=== PATIENT | female | born 1955 | race Hispanic/Latino ===

== ENCOUNTER 2018-08-27 10:12 | Inpatient (IN) | payer MEDICARE ==
--- NOTE | 2018-08-27 10:46 | Emergency Department Report ---
ED General Adult HPI - General Chief complaint: Weakness Stated complaint: GENERAL MALAISE Time Seen by Provider: 08/27/18 10:31 Source: patient, EMS Mode of arrival: Stretcher Limitations: No Limitations - History of Present Illness Initial comments: This 63-year-old female appears emergency room with generalized fatigue and malaise. Patient states that she went to her dialysis today and they said they would not dialyze her due to her not having dialysis for 8 days. Patient states that she has not been feeling well she's had 8 days of diarrhea. Patient denies abdominal pain. Patient denies fever chills. Patient denies chest pain and shortness of breath. Patient states her diarrhea is improving but she is in need of dialysis. -: Gradual - Related Data Home Medications Medication Instructions Recorded Confirmed Last Taken Insulin Aspart [NovoLOG Flexpen] 0 units SUB-Q DAILY 09/09/14 08/27/18 08/26/18 Insulin Detemir [Levemir Flextouch] 0 units SUB-Q HS 09/09/14 08/27/18 08/26/18 AtorvaSTATin [Lipitor] 20 mg PO QHS 08/27/18 08/27/18 08/26/18 Furosemide [Lasix TAB] 20 mg PO QDAY 08/27/18 08/27/18 08/26/18 Gabapentin [Neurontin] 1,200 mg PO TID 08/27/18 08/27/18 08/26/18 Ondansetron [Zofran Odt] 4 mg PO Q8HR 08/27/18 08/27/18 08/26/18 Pantoprazole [Protonix] 40 mg PO QDAY 08/27/18 08/27/18 08/26/18 Sertraline [Zoloft] 50 mg PO QDAY 08/27/18 08/27/18 08/26/18 Zolpidem [Ambien] 10 mg PO QHS 08/27/18 08/27/18 08/26/18 amLODIPine [Norvasc] 5 mg PO DAILY 08/27/18 08/27/18 08/26/18 Allergies Allergy/AdvReac Type Severity Reaction Status Date / Time acetaminophen Allergy Rash Verified 09/06/14 04:14 [From Lorcet (hydrocodone)] carbamazepine [From Tegretol] Allergy Rash Verified 09/06/14 04:14 cefaclor [From Ceclor] Allergy Rash Verified 09/06/14 04:14 cephalexin monohydrate Allergy Rash Verified 09/06/14 04:14 [From Keflex] chlorpheniramine maleate Allergy Rash Verified 09/06/14 04:14 [From Isoclor] codeine phosphate Allergy Rash Verified 09/06/14 04:14 [From Isoclor] guaifenesin [From Isoclor] Allergy Rash Verified 09/06/14 04:14 hydrocodone Allergy Rash Verified 09/06/14 04:14 hydrocodone bitartrate Allergy Rash Verified 09/06/14 04:14 [From Lorcet (hydrocodone)] indomethacin [From Indocin] Allergy Rash Verified 09/06/14 04:14 indomethacin sodium Allergy Rash Verified 09/06/14 04:14 [From Indocin] ofloxacin [From Floxin] Allergy Rash Verified 09/06/14 04:14 oxycodone HCl [From Percocet] Allergy Rash Verified 09/06/14 04:14 Penicillins Allergy Rash Verified 09/06/14 04:14 promethazine HCl Allergy Rash Verified 09/06/14 04:14 [From Phenergan] pseudoephedrine Allergy Rash Verified 09/06/14 04:14 pseudoephedrine HCl Allergy Rash Verified 09/06/14 04:14 [From Isoclor] Sulfa (Sulfonamide Allergy Rash Verified 09/06/14 04:14 Antibiotics) sulfamethoxazole Allergy Rash Verified 09/06/14 04:14 [From Bactrim] tetracycline Allergy Rash Verified 09/06/14 04:14 tetracycline HCl Allergy Rash Verified 09/06/14 04:14 [From Sumycin] trimethoprim [From Bactrim] Allergy Rash Verified 09/06/14 04:14 valacyclovir HCl Allergy Rash Verified 09/06/14 04:14 [From Valtrex] ED Review of Systems ROS: Stated complaint: GENERAL MALAISE Other details as noted in HPI Constitutional: malaise. denies: chills, fever Eyes: denies: eye pain, eye discharge, vision change ENT: denies: ear pain, throat pain Respiratory: denies: cough, shortness of breath, wheezing Cardiovascular: denies: chest pain, palpitations Endocrine: no symptoms reported Gastrointestinal: denies: abdominal pain, nausea, diarrhea Genitourinary: denies: urgency, dysuria, discharge Musculoskeletal: denies: back pain, joint swelling, arthralgia Skin: denies: rash, lesions Neurological: denies: headache, weakness, paresthesias Psychiatric: denies: anxiety, depression Hematological/Lymphatic: denies: easy bleeding, easy bruising ED Past Medical Hx - Past Medical History Previous Medical History?: Yes Hx Hypertension: Yes Hx Diabetes: Yes Hx Renal Disease: Yes Hx Headaches / Migraines: Yes Additional medical history: blood clots - Surgical History Past Surgical History?: Yes Additional Surgical History: fibroid removed. blood clot removed on left leg - Family History Family history: no significant - Social History Smoking Status: Never Smoker Substance Use Type: None - Medications Home Medications: Home Medications Medication Instructions Recorded Confirmed Last Taken Type Insulin Aspart [NovoLOG Flexpen] 0 units SUB-Q DAILY 09/09/14 08/27/18 08/26/18 History Insulin Detemir [Levemir Flextouch] 0 units SUB-Q HS 09/09/14 08/27/18 08/26/18 History AtorvaSTATin [Lipitor] 20 mg PO QHS 08/27/18 08/27/18 08/26/18 History Furosemide [Lasix TAB] 20 mg PO QDAY 08/27/18 08/27/18 08/26/18 History Gabapentin [Neurontin] 1,200 mg PO TID 08/27/18 08/27/18 08/26/18 History Ondansetron [Zofran Odt] 4 mg PO Q8HR 08/27/18 08/27/18 08/26/18 History Pantoprazole [Protonix] 40 mg PO QDAY 08/27/18 08/27/18 08/26/18 History Sertraline [Zoloft] 50 mg PO QDAY 08/27/18 08/27/18 08/26/18 History Zolpidem [Ambien] 10 mg PO QHS 08/27/18 08/27/18 08/26/18 History amLODIPine [Norvasc] 5 mg PO DAILY 08/27/18 08/27/18 08/26/18 History ED Physical Exam - General Limitations: No Limitations General appearance: alert, in no apparent distress - Head Head exam: Present: atraumatic, normocephalic - Eye Eye exam: Present: normal appearance - ENT ENT exam: Present: mucous membranes moist - Neck Neck exam: Present: normal inspection - Respiratory Respiratory exam: Present: normal lung sounds bilaterally. Absent: respiratory distress - Cardiovascular Cardiovascular Exam: Present: regular rate, normal rhythm. Absent: systolic murmur, diastolic murmur, rubs, gallop - GI/Abdominal GI/Abdominal exam: Present: soft, normal bowel sounds - Extremities Exam Extremities exam: Present: normal inspection - Back Exam Back exam: Present: normal inspection - Neurological Exam Neurological exam: Present: alert, oriented X3 - Psychiatric Psychiatric exam: Present: normal affect, normal mood - Skin Skin exam: Present: warm, dry, intact, normal color. Absent: rash ED Course Vital Signs 08/27/18 08/27/18 08/27/18 10:28 10:30 10:45 Temperature Pulse Rate 77 67 75 Respiratory 15 28 H Rate Blood Pressure 158/49 158/49 O2 Sat by Pulse 99 97 Oximetry 08/27/18 08/27/18 08/27/18 11:00 11:15 11:30 Temperature Pulse Rate 70 71 70 Respiratory 12 24 11 L Rate Blood Pressure 184/74 187/67 189/66 O2 Sat by Pulse 94 97 97 Oximetry 08/27/18 08/27/18 08/27/18 12:15 12:30 12:45 Temperature Pulse Rate 68 68 Respiratory 19 11 L Rate Blood Pressure 189/66 197/77 190/77 O2 Sat by Pulse 98 96 98 Oximetry 08/27/18 08/27/18 08/27/18 13:00 13:15 13:31 Temperature Pulse Rate 76 65 67 Respiratory 10 L 17 13 Rate Blood Pressure 197/79 188/70 163/60 O2 Sat by Pulse 99 99 99 Oximetry 08/27/18 08/27/18 08/27/18 13:45 14:15 14:30 Temperature 98.3 F Pulse Rate 69 70 69 Respiratory 16 16 Rate Blood Pressure 157/67 191/81 176/75 O2 Sat by Pulse 100 Oximetry 08/27/18 08/27/18 08/27/18 14:45 15:00 15:15 Temperature Pulse Rate 69 67 68 Respiratory Rate Blood Pressure 169/70 161/68 169/76 O2 Sat by Pulse Oximetry - Reevaluation(s) Reevaluation #1: Discussed all results with patient. Patient agrees to plan of care and admission. Patient was admitted to the hospitalist service for further evaluation treatment. 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 Boris villalpando. 08/27/18 12:01 Discussed case with group nurse practitioner. 08/27/18 12:37 Dr. Martinez returned call and wants patient admitted to the hospitalist service for inpatient dialysis. 08/27/18 12:43 Consultation #2: Hospitalist consult for admission. Hospitalist to admit patient and assumed care of patient. 08/27/18 12:55 ED Medical Decision Making - Lab Data Result diagrams: 08/27/18 10:53 08/27/18 10:53 - EKG Data -: EKG Interpreted by Me EKG shows normal: sinus rhythm, axis, intervals, QRS complexes, ST-T waves Rate: normal - Medical Decision Making Patient 63-year-old female that presents emergency room with complaints of malaise and needing dialysis. Patient was sent here by dialysis clinic to the infection is last 8 days of dialysis. Nephrology consult. Hospitalist consult. The patient admitted to the hospitalist service. Labs essentially unremarkable except for CK 85 and chronic anemia. EKG negative. - Differential Diagnosis weakness. Malaise. Missed dialysis. ckd. Critical care attestation.: If time is entered above; I have spent that time in minutes in the direct care of this critically ill patient, excluding procedure time. ED Disposition Clinical Impression: Missed dialysis CKD (chronic kidney disease) Qualifiers: Chronic kidney disease stage: on chronic dialysis Qualified Code(s): N18.6 - End stage renal disease Anemia Qualifiers: Anemia type: due to chronic kidney disease Chronic kidney disease stage: on chronic dialysis Qualified Code(s): N18.6 - End stage renal disease Disposition: 09 OP ADMIT IP TO THIS HOSP Is pt being admited?: Yes Does the pt Need Aspirin: No Condition: Serious Time of Disposition: 12:44
[2018-08-27 11:04] LABS: Basophils # (Auto) 0.1 K/mm3 (0.0-0.1); Basophils % (Auto) 1.2 % (0.0-1.8); Eosinophils # (Auto) 0.1 K/mm3 (0.0-0.4); Eosinophils % (Auto) 1.3 % (0.0-4.3); Hematocrit 28.9 % (30.3-42.9); Hemoglobin 9.6 gm/dl (10.1-14.3); Lymphocytes # (Auto) 0.8 K/mm3 (1.2-5.4); Lymphocytes % (Auto) 8.3 % (13.4-35.0); Mean Corpuscular HGB Conc 33 % (30-34); Mean Corpuscular Volume 91 fl (79-97); Monocytes # (Auto) 0.9 K/mm3 (0.0-0.8); Monocytes % (Auto) 9.2 % (0.0-7.3); Platelet Count 325 K/mm3 (140-440); Red Blood Count 3.16 M/mm3 (3.65-5.03); Red Cell Distribution Width 16.2 % (13.2-15.2)
[2018-08-27 11:31] LABS: Calcium 9.9 mg/dL (8.4-10.2)
[2018-08-27] MEDS ORDERED: NACL 0.9% 100 ML IV PRN (13:34)
[2018-08-27 13:58] LABS: Hepatitis B Surface Antigen Non-Reactive (Negative); Hepatitis C Virus Antibody Reactive (NonReactive)
--- NOTE | 2018-08-27 15:45 | Consultation ---
History of Present Illness - History of Present Illness Thank you for the consultation ! Patient was evaluated today My assessment and plan are as follows; End stage renal disease: Patient has not been dialyzed for last several days, missing treatment.there is no emergent indication for dialysis right It is too late to dialyze her at the dialysis facility. Patient will need to be dialyzed here at least for one treatment Ongoing issues with diarrhea off and on for last 7-8 days: Patient does need to see GI, Discussed counseled and educated Noncompliance: Discussed and addressed with patient at length, advised not to miss treatments She has been adequately counseled and educated to follow up with dialysis unit from dialysis perspective. Her hemoglobin is 9.6, sodium 134, blood sugar 240, bicarbonate 21 Patient was adequately counseled and educated regarding multiple renal related issues. overall prognosis remains guarded at this time due to dialysis status All renal related questions were answered and simple British pertinent lab studies as well as imaging results were also discussed with patient We will continue to follow and make recommendations from renal standpoint. Thank you for the consultation Author: Eze Martinez M.D. [facility], [address] [place] [address] Tel; [phone] Source of information: From patient History of present illness Patient is 63-year-old female who came into the ER with generalized malaise fatigue and weakness. He has also missed dialysis for nearly 8 days patient stated that she didn't go for dialysis as she was having diarrhea off and on. She denies having any fever or chills upon admission her BUN was 54 creatinine was 8.2 potassium was 4.9 bicarbonate was 21 hemoglobin was 9.6 Consultationc was placed for management of end-stage renal disease Current allergies: Acetaminophen and carbamazepine Cefaclor cephalexin etc. Home medication present medication: Reviewed Social history: Reviewed Family history: Reviewed Review of system: Missing dialysis for nearly 8 days due to intermittent diarrhea All other review of systems negative Physical examination Vitals: Reviewed General: No acute distress HEENT: Oral mucosa moist no pallor or icterus Neck: Supple without any JVD thyromegaly or nodular mass Chest: Clear to auscultation Heart: Regular rate and rhythm S1-S2 heard no S3-S4 Abdomen: Soft nontender, bowel sounds present no renal bruit no suprapubic masses no CVA tenderness noted Extremity: Minimal edema dry skin no peripheral cyanosis Endocrine: Thyroid not enlarged Psychiatric: No agitation and aggression noted Musculoskeletal: No joint effusion noted Labs and x-rays: Reviewed from this admission Medications and Allergies Allergies Allergy/AdvReac Type Severity Reaction Status Date / Time acetaminophen Allergy Rash Verified 09/06/14 04:14 [From Lorcet (hydrocodone)] carbamazepine [From Tegretol] Allergy Rash Verified 09/06/14 04:14 cefaclor [From Ceclor] Allergy Rash Verified 09/06/14 04:14 cephalexin monohydrate Allergy Rash Verified 09/06/14 04:14 [From Keflex] chlorpheniramine maleate Allergy Rash Verified 09/06/14 04:14 [From Isoclor] codeine phosphate Allergy Rash Verified 09/06/14 04:14 [From Isoclor] guaifenesin [From Isoclor] Allergy Rash Verified 09/06/14 04:14 hydrocodone Allergy Rash Verified 09/06/14 04:14 hydrocodone bitartrate Allergy Rash Verified 09/06/14 04:14 [From Lorcet (hydrocodone)] indomethacin [From Indocin] Allergy Rash Verified 09/06/14 04:14 indomethacin sodium Allergy Rash Verified 09/06/14 04:14 [From Indocin] ofloxacin [From Floxin] Allergy Rash Verified 09/06/14 04:14 oxycodone HCl [From Percocet] Allergy Rash Verified 09/06/14 04:14 Penicillins Allergy Rash Verified 09/06/14 04:14 promethazine HCl Allergy Rash Verified 09/06/14 04:14 [From Phenergan] pseudoephedrine Allergy Rash Verified 09/06/14 04:14 pseudoephedrine HCl Allergy Rash Verified 09/06/14 04:14 [From Isoclor] Sulfa (Sulfonamide Allergy Rash Verified 09/06/14 04:14 Antibiotics) sulfamethoxazole Allergy Rash Verified 09/06/14 04:14 [From Bactrim] tetracycline Allergy Rash Verified 09/06/14 04:14 tetracycline HCl Allergy Rash Verified 09/06/14 04:14 [From Sumycin] trimethoprim [From Bactrim] Allergy Rash Verified 09/06/14 04:14 valacyclovir HCl Allergy Rash Verified 09/06/14 04:14 [From Valtrex] Home Medications Medication Instructions Recorded Confirmed Last Taken Type Insulin Aspart [NovoLOG Flexpen] 0 units SUB-Q DAILY 09/09/14 08/27/18 08/26/18 History Insulin Detemir [Levemir Flextouch] 0 units SUB-Q HS 09/09/14 08/27/18 08/26/18 History AtorvaSTATin [Lipitor] 20 mg PO QHS 08/27/18 08/27/18 08/26/18 History Furosemide [Lasix TAB] 20 mg PO QDAY 08/27/18 08/27/18 08/26/18 History Ondansetron [Zofran ODT TAB] 4 mg PO Q8HR 08/27/18 08/27/18 08/26/18 History Pantoprazole [Protonix TAB] 40 mg PO QDAY 08/27/18 08/27/18 08/26/18 History Sertraline [Zoloft] 50 mg PO QDAY 08/27/18 08/27/18 08/26/18 History Zolpidem [Ambien] 10 mg PO QHS 08/27/18 08/27/18 08/26/18 History amLODIPine [Norvasc] 5 mg PO DAILY 08/27/18 08/27/18 08/26/18 History Gabapentin [Neurontin] 800 mg PO TID #90 capsule 09/01/18 Unknown Rx Vancomycin Po 125 mg PO Q6HR 9 Days oral.liqd 09/01/18 Unknown Rx Active Meds: Active Medications Sodium Chloride (Nacl 0.9%) 100 mls @ 999 mls/hr IV ANJELICA PRN PRN Reason: Hypotension Exam - Vital Signs Vital signs: Vital Signs Pulse 77 08/27/18 10:28 Results - Lab Results 09/01/18 05:14 09/01/18 05:14 Most recent lab results Calcium 9.9 mg/dL (8.4-10.2) 08/27/18 10:53
[2018-08-27] MEDS ORDERED: NACL 0.9 (PRIMING MACHINE ONLY DIALYSIS) MC ONE (17:47)
[2018-08-28] MEDS ORDERED: PERCOCET 5/325 PO PRN (00:31)
[2018-08-28] MEDS ORDERED: DILAUDID IV PRN (00:31)
[2018-08-28] MEDS ORDERED: ZOFRAN IV PRN (00:31)
[2018-08-28] MEDS ORDERED: SODIUM CHLORIDE FLUSH SYRINGE 10 ML IV PRN (00:31)
[2018-08-28] MEDS ORDERED: TYLENOL PO PRN (00:31)
--- NOTE | 2018-08-28 00:37 | History and Physical Report ---
History of Present Illness Date of examination: 08/27/18 Date of admission: 08/27/18 13:32 Chief complaint: Sob for 2 days. History of present illness: 63 y/o female sent from Dialysis center for missing HD for 8 days.Patient is sob.No chest painFeels weak.No fever or chills.Orthopnea present.She also had diarrhea for 8 days.No vomiting.No exacerbating or relieving factors.Patient states her diarrhea is improving. Past Medical History Previous Medical History?: Yes Hx Hypertension: Yes Hx Diabetes: Yes Hx Renal Disease: Yes Hx Headaches / Migraines: Yes Additional medical history: blood clots Surgical History Past Surgical History?: Yes Additional Surgical History: fibroid removed. blood clot removed on left leg Family History Family history: no significant Social History Smoking Status: Never Smoker Substance Use Type: None Medications Home Medications: Home Medications Medication Instructions Recorded Confirmed Last Taken Type Insulin Aspart [NovoLOG Flexpen] 0 units SUB-Q DAILY 09/09/14 08/27/18 08/26/18 History Insulin Detemir [Levemir Flextouch] 0 units SUB-Q HS 09/09/14 08/27/18 08/26/18 History AtorvaSTATin [Lipitor] 20 mg PO QHS 08/27/18 08/27/18 08/26/18 History Furosemide [Lasix TAB] 20 mg PO QDAY 08/27/18 08/27/18 08/26/18 History Gabapentin [Neurontin] 1,200 mg PO TID 08/27/18 08/27/18 08/26/18 History Ondansetron [Zofran Odt] 4 mg PO Q8HR 08/27/18 08/27/18 08/26/18 History Pantoprazole [Protonix] 40 mg PO QDAY 08/27/18 08/27/18 08/26/18 History Sertraline [Zoloft] 50 mg PO QDAY 08/27/18 08/27/18 08/26/18 History Zolpidem [Ambien] 10 mg PO QHS 08/27/18 08/27/18 08/26/18 History amLODIPine [Norvasc] 5 mg PO DAILY 08/27/18 08/27/18 08/26/18 History Review of Systems ROS: Stated complaint: GENERAL MALAISE Other details as noted in HPI Constitutional: malaise. denies: chills, fever Eyes: denies: eye pain, eye discharge, vision change ENT: denies: ear pain, throat pain Respiratory: denies: cough, shortness of breath, wheezing Cardiovascular: denies: chest pain, palpitations Endocrine: no symptoms reported Gastrointestinal: denies: abdominal pain, nausea, diarrhea Genitourinary: denies: urgency, dysuria, discharge Musculoskeletal: denies: back pain, joint swelling, arthralgia Skin: denies: rash, lesions Neurological: denies: headache, weakness, paresthesias Psychiatric: denies: anxiety, depression Hematological/Lymphatic: denies: easy bleeding, easy bruising Medications and Allergies Allergies Allergy/AdvReac Type Severity Reaction Status Date / Time acetaminophen Allergy Rash Verified 09/06/14 04:14 [From Lorcet (hydrocodone)] carbamazepine [From Tegretol] Allergy Rash Verified 09/06/14 04:14 cefaclor [From Ceclor] Allergy Rash Verified 09/06/14 04:14 cephalexin monohydrate Allergy Rash Verified 09/06/14 04:14 [From Keflex] chlorpheniramine maleate Allergy Rash Verified 09/06/14 04:14 [From Isoclor] codeine phosphate Allergy Rash Verified 09/06/14 04:14 [From Isoclor] guaifenesin [From Isoclor] Allergy Rash Verified 09/06/14 04:14 hydrocodone Allergy Rash Verified 09/06/14 04:14 hydrocodone bitartrate Allergy Rash Verified 09/06/14 04:14 [From Lorcet (hydrocodone)] indomethacin [From Indocin] Allergy Rash Verified 09/06/14 04:14 indomethacin sodium Allergy Rash Verified 09/06/14 04:14 [From Indocin] ofloxacin [From Floxin] Allergy Rash Verified 09/06/14 04:14 oxycodone HCl [From Percocet] Allergy Rash Verified 09/06/14 04:14 Penicillins Allergy Rash Verified 09/06/14 04:14 promethazine HCl Allergy Rash Verified 09/06/14 04:14 [From Phenergan] pseudoephedrine Allergy Rash Verified 09/06/14 04:14 pseudoephedrine HCl Allergy Rash Verified 09/06/14 04:14 [From Isoclor] Sulfa (Sulfonamide Allergy Rash Verified 09/06/14 04:14 Antibiotics) sulfamethoxazole Allergy Rash Verified 09/06/14 04:14 [From Bactrim] tetracycline Allergy Rash Verified 09/06/14 04:14 tetracycline HCl Allergy Rash Verified 09/06/14 04:14 [From Sumycin] trimethoprim [From Bactrim] Allergy Rash Verified 09/06/14 04:14 valacyclovir HCl Allergy Rash Verified 09/06/14 04:14 [From Valtrex] Home Medications Medication Instructions Recorded Confirmed Last Taken Type Insulin Aspart [NovoLOG Flexpen] 0 units SUB-Q DAILY 09/09/14 08/27/18 08/26/18 History Insulin Detemir [Levemir Flextouch] 0 units SUB-Q HS 09/09/14 08/27/18 08/26/18 History AtorvaSTATin [Lipitor] 20 mg PO QHS 08/27/18 08/27/18 08/26/18 History Furosemide [Lasix TAB] 20 mg PO QDAY 08/27/18 08/27/18 08/26/18 History Gabapentin [Neurontin] 1,200 mg PO TID 08/27/18 08/27/18 08/26/18 History Ondansetron [Zofran Odt] 4 mg PO Q8HR 08/27/18 08/27/18 08/26/18 History Pantoprazole [Protonix] 40 mg PO QDAY 08/27/18 08/27/18 08/26/18 History Sertraline [Zoloft] 50 mg PO QDAY 08/27/18 08/27/18 08/26/18 History Zolpidem [Ambien] 10 mg PO QHS 08/27/18 08/27/18 08/26/18 History amLODIPine [Norvasc] 5 mg PO DAILY 08/27/18 08/27/18 08/26/18 History Active Meds: Active Medications Acetaminophen (Tylenol) 650 mg PO Q4H PRN PRN Reason: Pain MILD(1-3)/Fever >100.5/TAMEZ Amlodipine Besylate (Norvasc) 5 mg PO DAILY [facility] Atorvastatin Calcium (Lipitor) 20 mg PO QHS [facility] Famotidine (Pepcid) 20 mg PO BID [facility] Furosemide (Lasix) 20 mg PO QDAY [facility] Hydromorphone HCl (Dilaudid) 0.5 mg IV Q3H PRN PRN Reason: Pain , Severe (7-10) Sodium Chloride (Nacl 0.9%) 100 mls @ 999 mls/hr IV ANJELICA PRN PRN Reason: Hypotension Miscellaneous Medication (Gabapentin [Neurontin]) 1,200 mg PO TID [facility] Miscellaneous Medication (Insulin Detemir [Levemir Flextouch]) 15 units SUB-Q HS [facility] Ondansetron HCl (Zofran) 4 mg IV Q8H PRN PRN Reason: Nausea And Vomiting Ondansetron HCl (Zofran Odt) 4 mg PO Q8HR [facility] Oxycodone/Acetaminophen (Percocet 5/325) 1 tab PO Q6H PRN PRN Reason: Pain, Moderate (4-6) Pantoprazole Sodium (Protonix) 40 mg PO QDAY [facility] Sertraline HCl (Zoloft) 50 mg PO QDAY [facility] Sodium Chloride (Sodium Chloride Flush Syringe 10 Ml) 10 ml IV BID [facility] Sodium Chloride (Sodium Chloride Flush Syringe 10 Ml) 10 ml IV PRN PRN PRN Reason: LINE FLUSH Zolpidem Tartrate (Ambien) 10 mg PO QHS [facility] Exam - Constitutional Vitals: Temp Pulse Resp BP Pulse Ox 98.2 F 75 18 136/52 92 08/27/18 23:52 08/27/18 23:52 08/27/18 23:52 08/27/18 23:52 08/27/18 23:52 General appearance: Present: mild distress, well-nourished - EENT Eyes: Present: PERRL ENT: hearing intact, clear oral mucosa - Neck Neck: Present: supple, normal ROM - Respiratory Respiratory effort: normal Respiratory: bilateral: CTA, rales - Cardiovascular Heart rate: 88 Rhythm: regular Heart Sounds: Present: S1 & S2. Absent: rub, click - Extremities Extremities: no ischemia, pulses intact, pulses symmetrical, No edema Peripheral Pulses: within normal limits - Abdominal General gastrointestinal: Present: soft, non-tender, non-distended, normal bowel sounds Female genitourinary: Present: normal - Integumentary Integumentary: Present: clear, warm, dry - Musculoskeletal Musculoskeletal: gait normal, strength equal bilaterally - Psychiatric Psychiatric: appropriate mood/affect, intact judgment & insight - Neurologic Neurologic: CNII-XII intact, moves all extremities - Allied Health Allied health notes reviewed: nursing, case management Results - Labs CBC & Chem 7: 08/27/18 10:53 08/27/18 10:53 Labs: Laboratory Last Values WBC 10.1 K/mm3 (4.5-11.0) 08/27/18 10:53 RBC 3.16 M/mm3 (3.65-5.03) L 08/27/18 10:53 Hgb 9.6 gm/dl (10.1-14.3) L 08/27/18 10:53 Hct 28.9 % (30.3-42.9) L 08/27/18 10:53 MCV 91 fl (79-97) 08/27/18 10:53 MCH 30 pg (28-32) 08/27/18 10:53 MCHC 33 % (30-34) 08/27/18 10:53 RDW 16.2 % (13.2-15.2) H 08/27/18 10:53 Plt Count 325 K/mm3 (140-440) 08/27/18 10:53 Lymph % (Auto) 8.3 % (13.4-35.0) L 08/27/18 10:53 [place] % (Auto) 9.2 % (0.0-7.3) H 08/27/18 10:53 Eos % (Auto) 1.3 % (0.0-4.3) 08/27/18 10:53 Baso % (Auto) 1.2 % (0.0-1.8) 08/27/18 10:53 Lymph # 0.8 K/mm3 (1.2-5.4) L 08/27/18 10:53 [place] # 0.9 K/mm3 (0.0-0.8) H 08/27/18 10:53 Eos # 0.1 K/mm3 (0.0-0.4) 08/27/18 10:53 Baso # 0.1 K/mm3 (0.0-0.1) 08/27/18 10:53 Seg Neutrophils % 80.0 % (40.0-70.0) H 08/27/18 10:53 Seg Neutrophils # 8.1 K/mm3 (1.8-7.7) H 08/27/18 10:53 Sodium 134 mmol/L (137-145) L 08/27/18 10:53 Potassium 4.9 mmol/L (3.6-5.0) 08/27/18 10:53 Chloride 95.6 mmol/L (98-107) L 08/27/18 10:53 Carbon Dioxide 21 mmol/L (22-30) L 08/27/18 10:53 Anion Gap 22 mmol/L 08/27/18 10:53 BUN 54 mg/dL (7-17) H 08/27/18 10:53 Creatinine 8.2 mg/dL (0.7-1.2) H 08/27/18 10:53 Estimated GFR 5 ml/min 08/27/18 10:53 BUN/Creatinine Ratio 7 % 08/27/18 10:53 Glucose 240 mg/dL (65-100) H 08/27/18 10:53 POC Glucose 240 (70-105) H 08/27/18 21:52 Calcium 9.9 mg/dL (8.4-10.2) 08/27/18 10:53 Total Bilirubin 0.30 mg/dL (0.1-1.2) 08/27/18 10:53 AST 9 units/L (5-40) 08/27/18 10:53 ALT 8 units/L (7-56) 08/27/18 10:53 Alkaline Phosphatase 77 units/L (35-129) 08/27/18 10:53 Total Protein 7.8 g/dL (6.3-8.2) 08/27/18 10:53 Albumin 4.0 g/dL (3.9-5) 08/27/18 10:53 Albumin/Globulin Ratio 1.1 % 08/27/18 10:53 Hepatitis A IgM Ab Non-reactive (NonReactive) 08/27/18 12:59 Hep Bs Antigen Non-reactive (Negative) 08/27/18 12:59 Hep B Core IgM Ab Non-reactive (NonReactive) 08/27/18 12:59 Hepatitis C Antibody Reactive (NonReactive) A 08/27/18 12:59 - Imaging and Cardiology EKG: report reviewed (NSR 68/min LAE T wave inversions n V1 V2 and AVR) Assessment and Plan Advance Directives: Yes (Fulll code) VTE prophylaxis?: Chemical Plan of care discussed with patient/family: Yes - Patient Problems (1) Volume overload Current Visit: Yes Status: Acute Qualifiers: Hypervolemia type: unspecified Qualified Code(s): E87.70 - Fluid overload, unspecified Plan to address problem: Needs HD Nephrology consult (2) Missed dialysis Current Visit: Yes Status: Acute Plan to address problem: Counselled (3) Acute exacerbation of congestive heart failure Current Visit: Yes Status: Acute Qualifiers: Heart failure type: combined systolic and diastolic Qualified Code(s): I50.43 - Acute on chronic combined systolic (congestive) and diastolic (congestive) heart failure Plan to address problem: Needs HD and increased ultrafiltration (4) HTN (hypertension) Current Visit: Yes Status: Chronic Qualifiers: Hypertension type: essential hypertension Qualified Code(s): I10 - Essential (primary) hypertension Plan to address problem: Cont antihypertensives (5) IDDM (insulin dependent diabetes mellitus) Current Visit: Yes Status: Chronic Plan to address problem: Cont Home insulin dosage and coverage Check A1c (6) HLD (hyperlipidemia) Current Visit: Yes Status: Chronic Qualifiers: Hyperlipidemia type: mixed hyperlipidemia Qualified Code(s): E78.2 - Mixed hyperlipidemia Plan to address problem: COnt statins (7) Peripheral neuropathy Current Visit: Yes Status: Chronic Qualifiers: Peripheral neuropathy type: polyneuropathy, unspecified Qualified Code(s): G62.9 - Polyneuropathy, unspecified Plan to address problem: COnt Gabapentin (8) GERD (gastroesophageal reflux disease) Current Visit: Yes Status: Chronic Qualifiers: Esophagitis presence: without esophagitis Qualified Code(s): K21.9 - Gastro-esophageal reflux disease without esophagitis Plan to address problem: Cont PPI's (9) Depression Current Visit: Yes Status: Chronic Qualifiers: Depression Type: unspecified Qualified Code(s): F32.9 - Major depressive disorder, single episode, unspecified Plan to address problem: COnt antidepressants (10) Hep C w/o coma, chronic Current Visit: Yes Status: Chronic Plan to address problem: Referral to GI as outpatient for Hep C Treatment with SOvaldi or Harvoni or EPCLUSA (11) DVT prophylaxis Current Visit: Yes Status: Acute Plan to address problem: COnt Heparin and GI prophylaxis
[2018-08-28] MEDS: ZOFRAN ODT PO SCH ×4 (02:55→23:33)
[2018-08-28 06:35] LABS: Calcium 8.8 mg/dL (8.4-10.2)
[2018-08-28] MEDS: NEURONTIN PO SCH ×3 (08:23→23:39)
--- NOTE | 2018-08-28 08:51 | Progress Note ---
Subjective Interval history: Patient was seen today for follow-up of multiple renal related issues has been complaining of abdominal pain nausea Also has had diarrhea outpatient Receive dialysis yesterday Events of 24 hours vitals labs intake output medications were reviewed Past medical history: Reviewed Family history: Reviewed Social history: Reviewed Allergies: Reviewed Physical examination: Vitals: Reviewed HEENT: No pallor or icterus oral mucosa moist Neck: Supple no JVD no thyromegaly Chest: Bilateral clear to auscultation anteriorly Heart: Regular rate and rhythm S1-S2 heard no S3-S4 Abdomen: Soft nontender no voluntary guarding rigidity rebound Extremity: Dry skin less than 1+ peripheral edema Psychiatric: No evidence of agitation and aggression noted Dermatology: No petechial rashes Labs and x-rays: Reviewed from today Assessment and plan End-stage renal disease: Patient admitted missing treatment for several days was having nausea vomiting abdominal pain? Due to uremia Will require hemodialysis treatment tomorrow morning Also has been complaining of intermittent abdominal pain with diarrhea, patient will benefit from GI evaluation Adequately counseled and educated regarding multiple renal related issues, Anemia and end-stage renal disease hemoglobin currently 9.6 Blood pressure appears to be well controlled Noncompliant patient admitted after missing several days of dialysis counseled and educated not to do so If stable will continue with hemodialysis on Friday schedule Patient was adequately counseled and educated regarding all the renal related issues Laboratory studies, pertinent for discussed with patient All questions were answered and simple Thai We'll continue to follow and make recommendation for renal standpoint Objective - Vital Signs Vital signs: Vital Signs - 12hr 08/27/18 08/28/18 08/28/18 23:52 02:54 03:54 Temperature 98.2 F Pulse Rate 75 Respiratory 18 20 20 Rate Blood Pressure 136/52 O2 Sat by Pulse 92 Oximetry 08/28/18 06:04 Temperature 98.0 F Pulse Rate 71 Respiratory 20 Rate Blood Pressure 164/62 O2 Sat by Pulse 94 Oximetry - Lab 08/27/18 10:53 08/28/18 05:02 Most recent lab results Calcium 8.8 mg/dL (8.4-10.2) 08/28/18 05:02 Medications & Allergies - Medications Allergies/Adverse Reactions: Allergies acetaminophen [From Lorcet (hydrocodone)] Allergy (Verified 09/06/14 04:14) Rash carbamazepine [From Tegretol] Allergy (Verified 09/06/14 04:14) Rash cefaclor [From Ceclor] Allergy (Verified 09/06/14 04:14) Rash cephalexin monohydrate [From Keflex] Allergy (Verified 09/06/14 04:14) Rash chlorpheniramine maleate [From Isoclor] Allergy (Verified 09/06/14 04:14) Rash codeine phosphate [From Isoclor] Allergy (Verified 09/06/14 04:14) Rash guaifenesin [From Isoclor] Allergy (Verified 09/06/14 04:14) Rash hydrocodone Allergy (Verified 09/06/14 04:14) Rash hydrocodone bitartrate [From Lorcet (hydrocodone)] Allergy (Verified 09/06/14 04:14) Rash indomethacin [From Indocin] Allergy (Verified 09/06/14 04:14) Rash indomethacin sodium [From Indocin] Allergy (Verified 09/06/14 04:14) Rash ofloxacin [From Floxin] Allergy (Verified 09/06/14 04:14) Rash oxycodone HCl [From Percocet] Allergy (Verified 09/06/14 04:14) Rash Penicillins Allergy (Verified 09/06/14 04:14) Rash promethazine HCl [From Phenergan] Allergy (Verified 09/06/14 04:14) Rash pseudoephedrine Allergy (Verified 09/06/14 04:14) Rash pseudoephedrine HCl [From Isoclor] Allergy (Verified 09/06/14 04:14) Rash Sulfa (Sulfonamide Antibiotics) Allergy (Verified 09/06/14 04:14) Rash sulfamethoxazole [From Bactrim] Allergy (Verified 09/06/14 04:14) Rash tetracycline Allergy (Verified 09/06/14 04:14) Rash tetracycline HCl [From Sumycin] Allergy (Verified 09/06/14 04:14) Rash trimethoprim [From Bactrim] Allergy (Verified 09/06/14 04:14) Rash valacyclovir HCl [From Valtrex] Allergy (Verified 09/06/14 04:14) Rash Home Medications: Home Medications Medication Instructions Recorded Confirmed Last Taken Type Insulin Aspart [NovoLOG Flexpen] 0 units SUB-Q DAILY 09/09/14 08/27/18 08/26/18 History Insulin Detemir [Levemir Flextouch] 0 units SUB-Q HS 09/09/14 08/27/18 08/26/18 History AtorvaSTATin [Lipitor] 20 mg PO QHS 08/27/18 08/27/18 08/26/18 History Furosemide [Lasix TAB] 20 mg PO QDAY 08/27/18 08/27/18 08/26/18 History Gabapentin [Neurontin] 1,200 mg PO TID 08/27/18 08/27/18 08/26/18 History Ondansetron [Zofran Odt] 4 mg PO Q8HR 08/27/18 08/27/18 08/26/18 History Pantoprazole [Protonix] 40 mg PO QDAY 08/27/18 08/27/18 08/26/18 History Sertraline [Zoloft] 50 mg PO QDAY 08/27/18 08/27/18 08/26/18 History Zolpidem [Ambien] 10 mg PO QHS 08/27/18 08/27/18 08/26/18 History amLODIPine [Norvasc] 5 mg PO DAILY 08/27/18 08/27/18 08/26/18 History Active Medications: Generic Name Dose Route Start Last Admin Trade Name Freq PRN Reason Stop Dose Admin Acetaminophen 650 mg 08/28/18 00:31 08/28/18 02:54 Tylenol PO 650 mg Q4H PRN Administration Pain MILD(1-3)/Fever >100.5/TAMEZ Amlodipine Besylate 5 mg 08/28/18 10:00 Norvasc PO DAILY [facility] Atorvastatin Calcium 20 mg 08/28/18 22:00 Lipitor PO QHS [facility] Famotidine 20 mg 08/28/18 10:00 Pepcid PO QAM [facility] Furosemide 20 mg 08/28/18 10:00 Lasix PO QDAY [facility] Gabapentin 1,200 mg 08/28/18 08:00 08/28/18 08:23 Neurontin PO 1,200 mg TID [facility] Administration Heparin Sodium (Porcine) 5,000 unit 08/28/18 10:00 Heparin SUB-Q Q12HR [facility] Hydromorphone HCl 0.5 mg 08/28/18 00:31 Dilaudid IV Q3H PRN Pain , Severe (7-10) Sodium Chloride 100 mls @ 999 mls/hr 08/27/18 13:34 Nacl 0.9% IV ANJELICA PRN Hypotension Insulin Glargine 15 units 08/28/18 22:00 Lantus SUB-Q HS [facility] Ondansetron HCl 4 mg 08/28/18 00:31 Zofran IV Q8H PRN Nausea And Vomiting Ondansetron HCl 4 mg 08/28/18 01:00 08/28/18 05:00 Zofran Odt PO Not Given Q8HR [facility] Sertraline HCl 50 mg 08/28/18 10:00 Zoloft PO QDAY [facility] Sodium Chloride 10 ml 08/28/18 10:00 Sodium Chloride Flush Syringe 10 Ml IV BID [facility] Sodium Chloride 10 ml 08/28/18 00:31 Sodium Chloride Flush Syringe 10 Ml IV PRN PRN LINE FLUSH Zolpidem Tartrate 10 mg 08/28/18 22:00 Ambien PO QHS [facility]
[2018-08-28] MEDS ORDERED: PROTONIX PO SCH (10:00)
[2018-08-28] MEDS: LASIX PO SCH (10:54)
[2018-08-28] MEDS: HEPARIN SUB-Q SCH ×2 (10:54→23:32)
[2018-08-28] MEDS: NORVASC PO SCH (11:04)
[2018-08-28] MEDS: ZOLOFT PO SCH ×2 (11:05→11:08)
[2018-08-28] MEDS: PEPCID PO SCH (11:05)
[2018-08-28] MEDS: SODIUM CHLORIDE FLUSH SYRINGE 10 ML IV SCH ×2 (11:12→23:34)
--- NOTE | 2018-08-28 14:19 | Progress Note ---
Assessment and Plan Assessment and plan: 63 y/o female sent from Dialysis center for missing HD for 8 days, she states that she missed dialysis because she was very sick and having diarrhea.Patient is c/o sob and diarrhea, Sob is improved, she is having non stop watery diarrhea, >10 episodes per day Past Medical History; htn, dm, ESRD, Migraine TAMEZ, hx of blood clots Problems Nonstop watery diarrhea Volume overload Missed dialysis HTN (hypertension) IDDM (insulin dependent diabetes mellitus), A1c 7.5 HLD (hyperlipidemia) Peripheral neuropathy GERD (gastroesophageal reflux disease) Depression Hep C w/o coma, chronic Nonadherence with dialysis Uremia Plan -Obtain stool studies, please patient on oral vancomycin empirically for treatment of C. difficile, consult ID, consult GI Nephrology consulted for dialysis, ultrafiltration to remove excess fluid Optimize medications for chronic conditions Has been hyperglycemic, optimize insulins Has been counseled on improve adherence to dialysis -Diarrhea is improving, no further workup or treatment is needed DVT prophylaxis with heparin History Interval history: Review of systems Constitutional: No fevers, c/o fatigue and malaise, no joint pains CVS: No chest pain, no orthopnea, no dyspnea on exertion, no pedal edema GI: c/o non stop watery diarrhea, >10 episodes per day Respiratory: No shortness of breath, no wheezing, no coughing Hospitalist Physical - Physical exam Narrative exam: General.: mild distress HEENT: Moist mucous membranes, extraocular muscles intact, no lymphadenopathy Neck: supple Cardiac: S1-S2 heard Lungs: clear to auscultation bilaterally Abdomen: soft , nontender, nondistended, bowel sounds positive Extremities: no edema clubbing or cyanosis Skin: no rash or lesions Neurologic: no gross focal deficits Psych: calm, and cooperative - Constitutional Vitals: Temp Pulse Resp BP Pulse Ox 98.0 F 75 20 148/62 94 08/28/18 06:04 08/28/18 11:04 08/28/18 06:04 08/28/18 11:04 08/28/18 06:04 General appearance: Present: mild distress, well-nourished Results - Labs CBC & Chem 7: 08/27/18 10:53 08/28/18 05:02 Labs: Laboratory Last Values WBC 10.1 K/mm3 (4.5-11.0) 08/27/18 10:53 RBC 3.16 M/mm3 (3.65-5.03) L 08/27/18 10:53 Hgb 9.6 gm/dl (10.1-14.3) L 08/27/18 10:53 Hct 28.9 % (30.3-42.9) L 08/27/18 10:53 MCV 91 fl (79-97) 08/27/18 10:53 MCH 30 pg (28-32) 08/27/18 10:53 MCHC 33 % (30-34) 08/27/18 10:53 RDW 16.2 % (13.2-15.2) H 08/27/18 10:53 Plt Count 325 K/mm3 (140-440) 08/27/18 10:53 Lymph % (Auto) 8.3 % (13.4-35.0) L 08/27/18 10:53 [place] % (Auto) 9.2 % (0.0-7.3) H 08/27/18 10:53 Eos % (Auto) 1.3 % (0.0-4.3) 08/27/18 10:53 Baso % (Auto) 1.2 % (0.0-1.8) 08/27/18 10:53 Lymph # 0.8 K/mm3 (1.2-5.4) L 08/27/18 10:53 [place] # 0.9 K/mm3 (0.0-0.8) H 08/27/18 10:53 Eos # 0.1 K/mm3 (0.0-0.4) 08/27/18 10:53 Baso # 0.1 K/mm3 (0.0-0.1) 08/27/18 10:53 Seg Neutrophils % 80.0 % (40.0-70.0) H 08/27/18 10:53 Seg Neutrophils # 8.1 K/mm3 (1.8-7.7) H 08/27/18 10:53 Sodium 136 mmol/L (137-145) L 08/28/18 05:02 Potassium 4.4 mmol/L (3.6-5.0) 08/28/18 05:02 Chloride 97.1 mmol/L (98-107) L 08/28/18 05:02 Carbon Dioxide 27 mmol/L (22-30) 08/28/18 05:02 Anion Gap 16 mmol/L 08/28/18 05:02 BUN 23 mg/dL (7-17) H 08/28/18 05:02 Creatinine 4.6 mg/dL (0.7-1.2) H 08/28/18 05:02 Estimated GFR 10 ml/min 08/28/18 05:02 BUN/Creatinine Ratio 5 % 08/28/18 05:02 Glucose 179 mg/dL (65-100) H 08/28/18 05:02 POC Glucose 261 (70-105) H 08/28/18 11:21 Hemoglobin A1c 7.5 % (4-6) H 08/28/18 01:04 Calcium 8.8 mg/dL (8.4-10.2) 08/28/18 05:02 Total Bilirubin 0.30 mg/dL (0.1-1.2) 08/27/18 10:53 AST 9 units/L (5-40) 08/27/18 10:53 ALT 8 units/L (7-56) 08/27/18 10:53 Alkaline Phosphatase 77 units/L (35-129) 08/27/18 10:53 Total Protein 7.8 g/dL (6.3-8.2) 08/27/18 10:53 Albumin 4.0 g/dL (3.9-5) 08/27/18 10:53 Albumin/Globulin Ratio 1.1 % 08/27/18 10:53 Hepatitis A IgM Ab Non-reactive (NonReactive) 08/27/18 12:59 Hep Bs Antigen Non-reactive (Negative) 08/27/18 12:59 Hep B Core IgM Ab Non-reactive (NonReactive) 08/27/18 12:59 Hepatitis C Antibody Reactive (NonReactive) A 08/27/18 12:59 Nutrition/Malnutrition Assess - Dietary Evaluation Nutrition/Malnutrition Findings: Nutrition Notes Start: 08/28/18 10:25 Freq: Status: Active Protocol: Document 08/28/18 10:26 LM (Rec: 08/28/18 11:33 LM [id number]) Co-Sign 08/28/18 10:26 LP Nutrition Notes Need for Assessment generated from: bill recapitulation clerk Initial or Follow up Assessment Current Diagnosis CKD (stage V CKD) Diabetes Hypertension Other Pertinent Diagnosis Hep C, on HD Current Diet Renal Labs/Tests Na 136 BUN 23 Creat 4.6 BG 179 Pertinent Medications Lyric [place] Height 5 ft 6 in Weight 87.2 kg [place] Body Weight (lbs) 130.0 BMI 31.0 Subjective/Other Information Consult for MST. Pt stated she has not been eating well due to having N/V/D for 3 weeks. Pt stated her N/V/D was due to previouslt having pnemonia and the flu. Pt siad she has noticed that she has been gradully losing weight since N /V/D started. Pt unaware of her UBW. Food preferences taken. Discussed nutrition for N/V. Burn Absent Trauma Absent GI Symptoms Nausea Vomiting Diarrhea #1 Nutrition Diagnosis Inadequate oral intake Etiology Nausea, vomitng, diarrhea As Evidenced by Signs and Symptoms Intakes less than 75% Is patient on ventilator? No Is Patient Ambulatory and/or Out of Bed Yes REE-([facility]-ambulatory/OOB) [ 1870.375 [id number]] Calculation Used for Recommendations [facility] Additional Notes Protein: 104-113 g (1.2-1.3 g/ kg) Fluids: 1-1.5 L/day Nutrition Intervention Change Diet Order: Continue Renal Goal #1 Meet at least 75% of energy and protein needs Goal #2 Diet toleance Anticipated Discharge Needs: Renal diet Follow-Up By: 08/31/18 Additional Comments F/U for intakes/ONS needs
[2018-08-28] MEDS ORDERED: D50W (25GM) Syringe IV PRN (14:24)
[2018-08-28] MEDS ORDERED: APRESOLINE IV PRN (14:25)
[2018-08-28] MEDS: HumaLOG SUB-Q SCH (18:41)
[2018-08-28] MEDS: VANCOMYCIN PO PO SCH (19:15)
[2018-08-28] MEDS: AMBIEN PO SCH (23:33)
[2018-08-28] MEDS: LANTUS SUB-Q SCH (23:39)
[2018-08-29] MEDS: VANCOMYCIN PO PO SCH ×4 (00:56→17:24)
[2018-08-29] MEDS: HumaLOG SUB-Q SCH ×5 (01:36→21:46)
[2018-08-29] MEDS: ZOFRAN ODT PO SCH ×3 (05:48→22:11)
[2018-08-29] MEDS: NEURONTIN PO SCH ×3 (08:00→20:19)
[2018-08-29 08:45] LABS: Basophils # (Auto) 0.1 K/mm3 (0.0-0.1); Basophils % (Auto) 1.3 % (0.0-1.8); Eosinophils # (Auto) 0.3 K/mm3 (0.0-0.4); Eosinophils % (Auto) 2.3 % (0.0-4.3); Hematocrit 26.4 % (30.3-42.9); Hemoglobin 8.9 gm/dl (10.1-14.3); Lymphocytes % (Auto) 9.1 % (13.4-35.0); Mean Corpuscular HGB Conc 34 % (30-34); Mean Corpuscular Volume 90 fl (79-97); Monocytes % (Auto) 8.9 % (0.0-7.3); Platelet Count 235 K/mm3 (140-440); Red Blood Count 2.94 M/mm3 (3.65-5.03); Red Cell Distribution Width 15.9 % (13.2-15.2)
[2018-08-29 09:01] LABS: Albumin 3.3 g/dL (3.9-5); Calcium 8.9 mg/dL (8.4-10.2)
[2018-08-29] MEDS: HEPARIN SUB-Q SCH ×2 (09:57→22:10)
[2018-08-29] MEDS: LASIX PO SCH (09:59)
[2018-08-29] MEDS: NORVASC PO SCH (09:59)
[2018-08-29] MEDS: PEPCID PO SCH (09:59)
[2018-08-29] MEDS: ZOLOFT PO SCH (09:59)
[2018-08-29] MEDS: SODIUM CHLORIDE FLUSH SYRINGE 10 ML IV SCH ×2 (09:59→22:12)
[2018-08-29] MEDS ORDERED: NACL 0.9% 100 ML IV PRN (10:34)
[2018-08-29] MEDS ORDERED: NACL 0.9 (PRIMING MACHINE ONLY DIALYSIS) MC ONE (14:47)
--- NOTE | 2018-08-29 14:48 | Progress Note ---
Assessment and Plan Impression: * End stage renal disease * Diarrhea * Hep C virus * Hypertension * Type II DM * Anemia secondary to ESRD * Secondary hyperPTH * Medical noncompliance Plan: * Hemodialysis today; continue TTS schedule * UF as tolerated * Dose medications for renal function * Epogen TIW prn * Renal diet Subjective Date of service: 08/29/18 Interval history: Patient seen on dialysis; no episodes of diarrhea today Objective - Vital Signs Vital signs: Vital Signs - 12hr 08/29/18 08/29/18 08/29/18 05:16 11:45 13:02 Temperature 98.1 F 99.4 F 99 F Pulse Rate 85 82 80 Respiratory 18 16 18 Rate Blood Pressure 144/64 131/53 O2 Sat by Pulse 95 78 L 96 Oximetry 08/29/18 08/29/18 08/29/18 14:00 14:15 14:30 Temperature 98.5 F Pulse Rate 77 74 75 Respiratory 16 Rate Blood Pressure 131/74 125/56 120/50 O2 Sat by Pulse Oximetry - General Appearance General appearance: well-developed, well-nourished EENT: ATNC Respiratory: Present: Clear to Ascultation Cardiology: regular, S1S2 Gastrointestinal: normal Integumentary: warm and dry Musculoskeletal: other (no edema) Psychiatric: cooperative - Lab 08/29/18 08:13 08/29/18 08:13 Most recent lab results Calcium 8.9 mg/dL (8.4-10.2) 08/29/18 08:13 Medications & Allergies - Medications Allergies/Adverse Reactions: Allergies acetaminophen [From Lorcet (hydrocodone)] Allergy (Verified 09/06/14 04:14) Rash carbamazepine [From Tegretol] Allergy (Verified 09/06/14 04:14) Rash cefaclor [From Ceclor] Allergy (Verified 09/06/14 04:14) Rash cephalexin monohydrate [From Keflex] Allergy (Verified 09/06/14 04:14) Rash chlorpheniramine maleate [From Isoclor] Allergy (Verified 09/06/14 04:14) Rash codeine phosphate [From Isoclor] Allergy (Verified 09/06/14 04:14) Rash guaifenesin [From Isoclor] Allergy (Verified 09/06/14 04:14) Rash hydrocodone Allergy (Verified 09/06/14 04:14) Rash hydrocodone bitartrate [From Lorcet (hydrocodone)] Allergy (Verified 09/06/14 04:14) Rash indomethacin [From Indocin] Allergy (Verified 09/06/14 04:14) Rash indomethacin sodium [From Indocin] Allergy (Verified 09/06/14 04:14) Rash ofloxacin [From Floxin] Allergy (Verified 09/06/14 04:14) Rash oxycodone HCl [From Percocet] Allergy (Verified 09/06/14 04:14) Rash Penicillins Allergy (Verified 09/06/14 04:14) Rash promethazine HCl [From Phenergan] Allergy (Verified 09/06/14 04:14) Rash pseudoephedrine Allergy (Verified 09/06/14 04:14) Rash pseudoephedrine HCl [From Isoclor] Allergy (Verified 09/06/14 04:14) Rash Sulfa (Sulfonamide Antibiotics) Allergy (Verified 09/06/14 04:14) Rash sulfamethoxazole [From Bactrim] Allergy (Verified 09/06/14 04:14) Rash tetracycline Allergy (Verified 09/06/14 04:14) Rash tetracycline HCl [From Sumycin] Allergy (Verified 09/06/14 04:14) Rash trimethoprim [From Bactrim] Allergy (Verified 09/06/14 04:14) Rash valacyclovir HCl [From Valtrex] Allergy (Verified 09/06/14 04:14) Rash Home Medications: Home Medications Medication Instructions Recorded Confirmed Last Taken Type Insulin Aspart [NovoLOG Flexpen] 0 units SUB-Q DAILY 09/09/14 08/27/18 08/26/18 History Insulin Detemir [Levemir Flextouch] 0 units SUB-Q HS 09/09/14 08/27/18 08/26/18 History AtorvaSTATin [Lipitor] 20 mg PO QHS 08/27/18 08/27/18 08/26/18 History Furosemide [Lasix TAB] 20 mg PO QDAY 08/27/18 08/27/18 08/26/18 History Gabapentin [Neurontin] 1,200 mg PO TID 08/27/18 08/27/18 08/26/18 History Ondansetron [Zofran Odt] 4 mg PO Q8HR 08/27/18 08/27/18 08/26/18 History Pantoprazole [Protonix] 40 mg PO QDAY 08/27/18 08/27/18 08/26/18 History Sertraline [Zoloft] 50 mg PO QDAY 08/27/18 08/27/18 08/26/18 History Zolpidem [Ambien] 10 mg PO QHS 08/27/18 08/27/18 08/26/18 History amLODIPine [Norvasc] 5 mg PO DAILY 08/27/18 08/27/18 08/26/18 History Active Medications: Generic Name Dose Route Start Last Admin Trade Name Freq PRN Reason Stop Dose Admin Acetaminophen 650 mg 08/28/18 00:31 08/28/18 02:54 Tylenol PO 650 mg Q4H PRN Administration Pain MILD(1-3)/Fever >100.5/TAMEZ Amlodipine Besylate 5 mg 08/28/18 10:00 08/29/18 09:59 Norvasc PO Not Given DAILY [facility] Atorvastatin Calcium 20 mg 08/28/18 22:00 08/28/18 23:33 Lipitor PO 20 mg QHS [facility] Administration Dextrose 50 ml 08/28/18 14:24 D50w (25gm) Syringe IV PRN PRN Hypoglycemia Famotidine 20 mg 08/28/18 10:00 08/29/18 09:59 Pepcid PO Not Given QAM [facility] Furosemide 20 mg 08/28/18 10:00 08/29/18 09:59 Lasix PO Not Given QDAY [facility] Gabapentin 1,200 mg 08/28/18 08:00 08/29/18 08:00 Neurontin PO Not Given TID [facility] Heparin Sodium (Porcine) 5,000 unit 08/28/18 10:00 08/29/18 09:57 Heparin SUB-Q Not Given Q12HR [facility] Hydralazine HCl 10 mg 08/28/18 14:25 Apresoline IV Q4HR PRN BP >160/100 Hydromorphone HCl 0.5 mg 08/28/18 00:31 Dilaudid IV Q3H PRN Pain , Severe (7-10) Sodium Chloride 100 mls @ 999 mls/hr 08/27/18 13:34 Nacl 0.9% IV ANJELICA PRN Hypotension Sodium Chloride 100 mls @ 999 mls/hr 08/29/18 10:34 Nacl 0.9% IV ANJELICA PRN Hypotension Insulin Glargine 15 units 08/28/18 22:00 08/28/18 23:39 Lantus SUB-Q 15 units HS [facility] Administration Insulin Human Lispro 0 unit 08/28/18 16:30 08/29/18 11:30 Humalog SUB-Q 2 unit ACHS [facility] Administration Protocol Ondansetron HCl 4 mg 08/28/18 00:31 Zofran IV Q8H PRN Nausea And Vomiting Ondansetron HCl 4 mg 08/28/18 01:00 08/29/18 05:48 Zofran Odt PO 4 mg Q8HR [facility] Administration Sertraline HCl 50 mg 08/28/18 10:00 08/29/18 09:59 Zoloft PO Not Given QDAY [facility] Sodium Chloride 10 ml 08/28/18 10:00 08/29/18 09:59 Sodium Chloride Flush Syringe 10 Ml IV Not Given BID [facility] Sodium Chloride 10 ml 08/28/18 00:31 Sodium Chloride Flush Syringe 10 Ml IV PRN PRN LINE FLUSH Vancomycin HCl 125 mg 08/28/18 18:00 08/29/18 12:15 Vancomycin Po PO Not Given Q6HR [facility] Zolpidem Tartrate 10 mg 08/28/18 22:00 08/28/18 23:33 Ambien PO 10 mg QHS [facility] Administration
--- NOTE | 2018-08-29 16:46 | Progress Note ---
Assessment and Plan - Patient Problems (1) Diarrhea Current Visit: Yes Status: Acute Plan to address problem: Diarrhea patient still has 3-4 watery stools throughout the day. At this time diarrhea unspecified. Await stool studies. GI consult. Consider Lomotil. (2) CKD (chronic kidney disease) Current Visit: Yes Status: Acute Qualifiers: Chronic kidney disease stage: on chronic dialysis Qualified Code(s): N18.6 - End stage renal disease; Z99.2 - Dependence on renal dialysis Plan to address problem: Chronic kidney disease hemodialysis as per nephrology. (3) Hep C w/o coma, chronic Current Visit: Yes Status: Chronic (4) IDDM (insulin dependent diabetes mellitus) Current Visit: Yes Status: Chronic Plan to address problem: Patient insulin-dependent diabetes mellitus several episodes of hypoglycemia will not be too aggressive with insulin continue the 15 units of Lantus. (5) Peripheral neuropathy Current Visit: Yes Status: Chronic Qualifiers: Peripheral neuropathy type: polyneuropathy, unspecified Qualified Code(s): G62.9 - Polyneuropathy, unspecified Plan to address problem: Peripheral neuropathy stable.. I evaluated patient's medications to see what may be causing the dizziness throughout the day. Most likely etiology now would be Neurontin. We'll decrease slightly to 900 mg 3 times a day. See how she responds to this. History Interval history: Patient's main complaint today is 1 of the pills makes me dizzy. Patient also she states she would like some lidocaine cream for irritated area on her shoulder. She does not sure what appear lid is if it is the morning of the day. She still continues to have increased stools 3-4 times per day. Patient states that it is not her stools for dehydration or anything or electrolyte abnormalities. She thinks for the pills. Hospitalist Physical - Constitutional Vitals: Temp Pulse Resp BP Pulse Ox 98.5 F 70 16 126/49 96 08/29/18 14:00 08/29/18 16:30 08/29/18 14:00 08/29/18 16:30 08/29/18 13:02 General appearance: Present: no acute distress, well-nourished - EENT Eyes: Present: PERRL, EOM intact ENT: hearing intact, clear oral mucosa, dentition normal, oropharyngeal erythema - Neck Neck: Present: supple, normal ROM - Respiratory Respiratory: bilateral: CTA - Cardiovascular Rhythm: regular Heart Sounds: Present: S1 & S2 - Extremities Extremities: no ischemia, pulses intact, pulses symmetrical Peripheral Pulses: within normal limits - Abdominal General gastrointestinal: soft, non-tender, non-distended, normal bowel sounds, no absent bowel sounds, no hepatomegaly, no splenomegaly - Integumentary Integumentary: Present: clear, warm, dry - Psychiatric Psychiatric: appropriate mood/affect, intact judgment & insight, cooperative - Neurologic Neurologic: CNII-XII intact Results - Labs CBC & Chem 7: 08/29/18 08:13 08/29/18 08:13 Labs: Laboratory Last Values WBC 11.6 K/mm3 (4.5-11.0) H 08/29/18 08:13 RBC 2.94 M/mm3 (3.65-5.03) L 08/29/18 08:13 Hgb 8.9 gm/dl (10.1-14.3) L 08/29/18 08:13 Hct 26.4 % (30.3-42.9) L 08/29/18 08:13 MCV 90 fl (79-97) 08/29/18 08:13 MCH 30 pg (28-32) 08/29/18 08:13 MCHC 34 % (30-34) 08/29/18 08:13 RDW 15.9 % (13.2-15.2) H 08/29/18 08:13 Plt Count 235 K/mm3 (140-440) 08/29/18 08:13 Lymph % (Auto) 9.1 % (13.4-35.0) L 08/29/18 08:13 [place] % (Auto) 8.9 % (0.0-7.3) H 08/29/18 08:13 Eos % (Auto) 2.3 % (0.0-4.3) 08/29/18 08:13 Baso % (Auto) 1.3 % (0.0-1.8) 08/29/18 08:13 Lymph # 1.0 K/mm3 (1.2-5.4) L 08/29/18 08:13 [place] # 1.0 K/mm3 (0.0-0.8) H 08/29/18 08:13 Eos # 0.3 K/mm3 (0.0-0.4) 08/29/18 08:13 Baso # 0.1 K/mm3 (0.0-0.1) 08/29/18 08:13 Seg Neutrophils % 78.4 % (40.0-70.0) H 08/29/18 08:13 Seg Neutrophils # 9.1 K/mm3 (1.8-7.7) H 08/29/18 08:13 Sodium 135 mmol/L (137-145) L 08/29/18 08:13 Potassium 4.1 mmol/L (3.6-5.0) 08/29/18 08:13 Chloride 95.6 mmol/L (98-107) L 08/29/18 08:13 Carbon Dioxide 23 mmol/L (22-30) 08/29/18 08:13 Anion Gap 21 mmol/L 08/29/18 08:13 BUN 26 mg/dL (7-17) H 08/29/18 08:13 Creatinine 6.5 mg/dL (0.7-1.2) H 08/29/18 08:13 Estimated GFR 6 ml/min 08/29/18 08:13 BUN/Creatinine Ratio 4 % 08/29/18 08:13 Glucose 191 mg/dL (65-100) H 08/29/18 08:13 POC Glucose 234 (70-105) H 08/29/18 11:06 Hemoglobin A1c 7.5 % (4-6) H 08/28/18 01:04 Calcium 8.9 mg/dL (8.4-10.2) 08/29/18 08:13 Total Bilirubin 0.30 mg/dL (0.1-1.2) 08/29/18 08:13 AST 6 units/L (5-40) 08/29/18 08:13 ALT 6 units/L (7-56) L 08/29/18 08:13 Alkaline Phosphatase 74 units/L (35-129) 08/29/18 08:13 Total Protein 6.8 g/dL (6.3-8.2) 08/29/18 08:13 Albumin 3.3 g/dL (3.9-5) L 08/29/18 08:13 Albumin/Globulin Ratio 0.9 % 08/29/18 08:13 Hepatitis A IgM Ab Non-reactive (NonReactive) 08/27/18 12:59 Hep Bs Antigen Non-reactive (Negative) 08/27/18 12:59 Hep B Core IgM Ab Non-reactive (NonReactive) 08/27/18 12:59 Hepatitis C Antibody Reactive (NonReactive) A 08/27/18 12:59 Nutrition/Malnutrition Assess - Dietary Evaluation Nutrition/Malnutrition Findings: Nutrition Notes Start: 08/28/18 10:25 Freq: Status: Active Protocol: Document 08/28/18 10:26 LM (Rec: 08/28/18 11:33 LM [id number]) Co-Sign 08/28/18 10:26 LP Nutrition Notes Need for 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 Pt stated she has not been eating well due to having N/V/D for 3 weeks. Pt stated her N/V/D was due to previouslt having pnemonia and the flu. Pt siad she has noticed that she has been gradully losing weight since N /V/D started. Pt unaware of her UBW. Food preferences taken. Discussed nutrition for N/V. Burn Absent Trauma Absent GI Symptoms Nausea Vomiting Diarrhea #1 Nutrition Diagnosis Inadequate oral intake Etiology Nausea, vomitng, diarrhea As Evidenced by Signs and Symptoms Intakes less than 75% Is patient on ventilator? No Is Patient Ambulatory and/or Out of Bed Yes REE-(Madison-St. Jeor-ambulatory/OOB) [ 1870.375 [id number]] Calculation Used for Recommendations [place]-St Jeor Additional Notes Protein: 104-113 g (1.2-1.3 g/ kg) Fluids: 1-1.5 L/day Nutrition Intervention Change Diet Order: Continue Renal Goal #1 Meet at least 75% of energy and protein needs Goal #2 Diet toleance Anticipated Discharge Needs: Renal diet Follow-Up By: 08/31/18 Additional Comments F/U for intakes/ONS needs
--- NOTE | 2018-08-29 17:14 | Gastroenterology Consultation ---
History of Present Illness - Reason for Consult Consult date: 08/29/18 diarrhea Requesting physician: PEPITO HEARD - History of Present Illness Ms Harper is a 63 yo wf who h/o ESRD who was admitted with volume depletion, diarrhea, n/v. She was sent to hospital from dialysis per pt. She had several days of diarrhea with associated n/v and abd pain. Her symptoms have slowly subsided since admission. Pt was in dialysis at the time of exam. She has had urgency to have bm's but less diarrhea episodes and no bleeding. + loss of appetite, but was able to eat a hamburger yesterday for dinner. No further n/v episodes over last couple days. Still with generalized abd pain which is improved since admission. Past History Past Medical History: diabetes, DVT, ESRD, hypertension Past Surgical History: Other (fibroid removal) Social history: no significant social history Family history: no significant family history Medications and Allergies Allergies Allergy/AdvReac Type Severity Reaction Status Date / Time acetaminophen Allergy Rash Verified 09/06/14 04:14 [From Lorcet (hydrocodone)] carbamazepine [From Tegretol] Allergy Rash Verified 09/06/14 04:14 cefaclor [From Ceclor] Allergy Rash Verified 09/06/14 04:14 cephalexin monohydrate Allergy Rash Verified 09/06/14 04:14 [From Keflex] chlorpheniramine maleate Allergy Rash Verified 09/06/14 04:14 [From Isoclor] codeine phosphate Allergy Rash Verified 09/06/14 04:14 [From Isoclor] guaifenesin [From Isoclor] Allergy Rash Verified 09/06/14 04:14 hydrocodone Allergy Rash Verified 09/06/14 04:14 hydrocodone bitartrate Allergy Rash Verified 09/06/14 04:14 [From Lorcet (hydrocodone)] indomethacin [From Indocin] Allergy Rash Verified 09/06/14 04:14 indomethacin sodium Allergy Rash Verified 09/06/14 04:14 [From Indocin] ofloxacin [From Floxin] Allergy Rash Verified 09/06/14 04:14 oxycodone HCl [From Percocet] Allergy Rash Verified 09/06/14 04:14 Penicillins Allergy Rash Verified 09/06/14 04:14 promethazine HCl Allergy Rash Verified 09/06/14 04:14 [From Phenergan] pseudoephedrine Allergy Rash Verified 09/06/14 04:14 pseudoephedrine HCl Allergy Rash Verified 09/06/14 04:14 [From Isoclor] Sulfa (Sulfonamide Allergy Rash Verified 09/06/14 04:14 Antibiotics) sulfamethoxazole Allergy Rash Verified 09/06/14 04:14 [From Bactrim] tetracycline Allergy Rash Verified 09/06/14 04:14 tetracycline HCl Allergy Rash Verified 09/06/14 04:14 [From Sumycin] trimethoprim [From Bactrim] Allergy Rash Verified 09/06/14 04:14 valacyclovir HCl Allergy Rash Verified 09/06/14 04:14 [From Valtrex] Home Medications Medication Instructions Recorded Confirmed Last Taken Type Insulin Aspart [NovoLOG Flexpen] 0 units SUB-Q DAILY 09/09/14 08/27/18 08/26/18 History Insulin Detemir [Levemir Flextouch] 0 units SUB-Q HS 09/09/14 08/27/18 08/26/18 History AtorvaSTATin [Lipitor] 20 mg PO QHS 08/27/18 08/27/18 08/26/18 History Furosemide [Lasix TAB] 20 mg PO QDAY 08/27/18 08/27/18 08/26/18 History Gabapentin [Neurontin] 1,200 mg PO TID 08/27/18 08/27/18 08/26/18 History Ondansetron [Zofran Odt] 4 mg PO Q8HR 08/27/18 08/27/18 08/26/18 History Pantoprazole [Protonix] 40 mg PO QDAY 08/27/18 08/27/18 08/26/18 History Sertraline [Zoloft] 50 mg PO QDAY 08/27/18 08/27/18 08/26/18 History Zolpidem [Ambien] 10 mg PO QHS 08/27/18 08/27/18 08/26/18 History amLODIPine [Norvasc] 5 mg PO DAILY 08/27/18 08/27/18 08/26/18 History Active Meds: Active Medications Acetaminophen (Tylenol) 650 mg PO Q4H PRN PRN Reason: Pain MILD(1-3)/Fever >100.5/TAMEZ Last Admin: 08/28/18 02:54 Dose: 650 mg Documented by: Amlodipine Besylate (Norvasc) 5 mg PO DAILY [facility] Last Admin: 08/29/18 09:59 Dose: Not Given Documented by: Atorvastatin Calcium (Lipitor) 20 mg PO QHS [facility] Last Admin: 08/28/18 23:33 Dose: 20 mg Documented by: Dextrose (D50w (25gm) Syringe) 50 ml IV PRN PRN PRN Reason: Hypoglycemia Famotidine (Pepcid) 20 mg PO QAM [facility] Last Admin: 08/29/18 09:59 Dose: Not Given Documented by: Furosemide (Lasix) 20 mg PO QDAY [facility] Last Admin: 08/29/18 09:59 Dose: Not Given Documented by: Gabapentin (Neurontin) 1,200 mg PO TID [facility] Last Admin: 08/29/18 14:00 Dose: Not Given Documented by: Gabapentin (Neurontin) 800 mg PO TID [facility] Heparin Sodium (Porcine) (Heparin) 5,000 unit SUB-Q Q12HR [facility] Last Admin: 08/29/18 09:57 Dose: Not Given Documented by: Hydralazine HCl (Apresoline) 10 mg IV Q4HR PRN PRN Reason: BP >160/100 Hydromorphone HCl (Dilaudid) 0.5 mg IV Q3H PRN PRN Reason: Pain , Severe (7-10) Sodium Chloride (Nacl 0.9%) 100 mls @ 999 mls/hr IV ANJELICA PRN PRN Reason: Hypotension Sodium Chloride (Nacl 0.9%) 100 mls @ 999 mls/hr IV ANJELICA PRN PRN Reason: Hypotension Insulin Glargine (Lantus) 15 units SUB-Q [facility] Last Admin: 08/28/18 23:39 Dose: 15 units Documented by: Insulin Human Lispro (Humalog) 0 unit SUB-Q [facility]; Protocol Last Admin: 08/29/18 16:36 Dose: Not Given Documented by: Ondansetron HCl (Zofran) 4 mg IV Q8H PRN PRN Reason: Nausea And Vomiting Ondansetron HCl (Zofran Odt) 4 mg PO Q8HR [facility] Last Admin: 08/29/18 14:00 Dose: Not Given Documented by: Sertraline HCl (Zoloft) 50 mg PO QDAY [facility] Last Admin: 08/29/18 09:59 Dose: Not Given Documented by: Sodium Chloride (Sodium Chloride Flush Syringe 10 Ml) 10 ml IV BID [facility] Last Admin: 08/29/18 09:59 Dose: Not Given Documented by: Sodium Chloride (Sodium Chloride Flush Syringe 10 Ml) 10 ml IV PRN PRN PRN Reason: LINE FLUSH Vancomycin HCl (Vancomycin Po) 125 mg PO Q6HR [facility] Last Admin: 08/29/18 12:15 Dose: Not Given Documented by: Zolpidem Tartrate (Ambien) 10 mg PO QHS [facility] Last Admin: 08/28/18 23:33 Dose: 10 mg Documented by: Review of Systems - Review of Systems All systems: negative (per HPI) Exam - Constitutional Vital Signs: Temp Pulse Resp BP Pulse Ox 98.5 F 72 16 125/51 96 08/29/18 14:00 08/29/18 16:45 08/29/18 14:00 08/29/18 16:45 08/29/18 13:02 General appearance: no acute distress, well-nourished - EENT Eyes: PERRL, EOM intact ENT: poor dentition - Respiratory Respiratory effort: normal Respiratory: bilateral: CTA - Cardiovascular Rhythm: regular Heart Sounds: Present: S1 & S2 Extremities: No edema, Full ROM - Gastrointestinal General gastrointestinal: Present: soft, tender (mild diffuse ttp), non- distended, normal bowel sounds - Integumentary Integumentary: Present: clear, warm - Neurologic Neurological: alert and oriented x3 - Psychiatric Psychiatric: appropriate mood/affect - Labs CBC & Chem 7: 08/29/18 08:13 08/29/18 08:13 Lab Results: Laboratory Results - last 24 hr 08/28/18 08/28/18 08/29/18 16:51 21:43 07:38 WBC RBC Hgb Hct MCV MCH MCHC RDW Plt Count Lymph % (Auto) [place] % (Auto) Eos % (Auto) Baso % (Auto) Lymph # [place] # Eos # Baso # Seg Neutrophils % Seg Neutrophils # Sodium Potassium Chloride Carbon Dioxide Anion Gap BUN Creatinine Estimated GFR BUN/Creatinine Ratio Glucose POC Glucose 205 H 170 H 209 H Calcium Total Bilirubin AST ALT Alkaline Phosphatase Total Protein Albumin Albumin/Globulin Ratio 08/29/18 08/29/18 08/29/18 08:13 08:13 11:06 WBC 11.6 H RBC 2.94 L Hgb 8.9 L Hct 26.4 L MCV 90 MCH 30 MCHC 34 RDW 15.9 H Plt Count 235 Lymph % (Auto) 9.1 L [place] % (Auto) 8.9 H Eos % (Auto) 2.3 Baso % (Auto) 1.3 Lymph # 1.0 L [place] # 1.0 H Eos # 0.3 Baso # 0.1 Seg Neutrophils % 78.4 H Seg Neutrophils # 9.1 H Sodium 135 L Potassium 4.1 Chloride 95.6 L Carbon Dioxide 23 Anion Gap 21 BUN 26 H Creatinine 6.5 H Estimated GFR 6 BUN/Creatinine Ratio 4 Glucose 191 H POC Glucose 234 H Calcium 8.9 Total Bilirubin 0.30 AST 6 ALT 6 L Alkaline Phosphatase 74 Total Protein 6.8 Albumin 3.3 L Albumin/Globulin Ratio 0.9 Assessment and Plan 1. Diarrhea 2. Nausea/vomiting 3. Abdominal pain 4. ESRD -symptoms suggestive of possible gastroenteritis episode and pt seems to be improving clinically. r/o c diff (studies pending). will obtain ct scan of abd w/o contrast to r/o any other acute process/inflammatory signs -cont supportive care and diet as tolerated will follow
[2018-08-29] MEDS: AMBIEN PO SCH (21:45)
[2018-08-29] MEDS: LANTUS SUB-Q SCH (21:46)
--- NOTE | 2018-08-29 22:41 | Cat Scan Report ---
FINAL REPORT EXAM: CT ABDOMEN PELVIS WO CON HISTORY: abdominal pain COMPARISON: None available. TECHNIQUE: Contiguous axial images were obtained. Additional sagittal and coronal reformatted images were obtained. FINDINGS: Trace left-sided pleural effusion. Nonspecific ground-glass opacities at the lung bases concerning fo r mild congestion. Calcified granulomas at the left lung base. Visualized heart is borderline to mild ly enlarged. Cholelithiasis. Mild gallbladder wall thickening. This may relate to a partially contracted state of the gallbladder. No adjacent fat stranding or fluid. Benign calcified granulomas scattered within the liver and spleen. Spleen is enlarged measuring 14 centimeters. Partial fatty atrophy of the pancreas . No adrenal mass. Vascular calcifications the renal sinus fat bilaterally. 3 millimeter nonobstructive left renal calcu kenzie. No hydronephrosis bilaterally. Small exophytic superior right renal cyst. Aorta and IVC normal i n caliber. Infrarenal IVC filter is in place. Mild to moderate calcified plaque along the aorta. No distal ureteral or urinary bladder calculi. Uterus and ovaries are grossly unremarkable. Tiny ajay nflamed appendix. Large and small bowel loops normal in caliber. No focal inflammatory changes the sheldon wel. Lumbar vertebral body heights are preserved. Mild superior plate compression deformity prominent Schm orl's node deformity at the superior T10 level. No bony retropulsion. This is suspected to be chronic . Bony pelvis is grossly intact. Mild subcutaneous fat stranding along the anterior abdominal wall and tiny pockets a gas likely relat ing to subcutaneous injection. IMPRESSION: Cholelithiasis with mild gallbladder wall thickening. In the correct clinical setting, findings would be concerning for mild cholecystitis. Mild edema at the lung bases. No other gross acute findings.
[2018-08-30] MEDS: VANCOMYCIN PO PO SCH ×5 (02:33→23:45)
[2018-08-30] MEDS: NEURONTIN PO SCH ×4 (07:12→19:54)
--- NOTE | 2018-08-30 07:20 | Progress Note ---
Assessment and Plan Assessment and plan: 63 y/o female sent from Dialysis center for missing HD for 8 days, she states that she missed dialysis because she was very sick and having diarrhea.Patient is c/o sob and diarrhea, Sob is improved, she is having non stop watery diarrhea, >10 episodes per day - Patient Problems (1) Diarrhea Current Visit: Yes Status: Acute Plan to address problem: Diarrhea patient still has 3-4 watery stools throughout the day. At this time diarrhea unspecified. Await stool studies. GI consult. Consider Lomotil. CT concerning for Mild cholecytitis Await GI re-evaluation (2) CKD (chronic kidney disease) Current Visit: Yes Status: Acute Qualifiers: Chronic kidney disease stage: on chronic dialysis Qualified Code(s): N18.6 - End stage renal disease; Z99.2 - Dependence on renal dialysis Plan to address problem: Chronic kidney disease hemodialysis as per nephrology. (3) Hep C w/o coma, chronic Current Visit: Yes Status: Chronic (4) IDDM (insulin dependent diabetes mellitus) Current Visit: Yes Status: Chronic Plan to address problem: Patient insulin-dependent diabetes mellitus still uncontrolled, increase the 20 units of Lantus. add sliding scale (5) Peripheral neuropathy Current Visit: Yes Status: Chronic Qualifiers: Peripheral neuropathy type: polyneuropathy, unspecified Qualified Code(s): G62.9 - Polyneuropathy, unspecified Plan to address problem: Peripheral neuropathy stable.. I evaluated patient's medications to see what may be causing the dizziness throughout the day. Most likely etiology now would be Neurontin. Continue 900 mg 3 times a day was decreased yesterday. See how she responds to this. History Interval history: Patient seen and examined, although lathergic appearing states that she is feeling a little better. She denied any dizziness today and reports soft stools but no steven diarrhea. Hospitalist Physical - Physical exam Narrative exam: General appearance: Present: no acute distress, well-nourished - EENT Eyes: Present: PERRL, EOM intact ENT: hearing intact, clear oral mucosa, dentition normal, oropharyngeal erythema - Neck Neck: Present: supple, normal ROM - Respiratory Respiratory: bilateral: CTA - Cardiovascular Rhythm: regular Heart Sounds: Present: S1 & S2 - Extremities Extremities: no ischemia, pulses intact, pulses symmetrical Peripheral Pulses: within normal limits - Abdominal General gastrointestinal: soft, non-tender, non-distended, normal bowel sounds, no absent bowel sounds, no hepatomegaly, no splenomegaly - Integumentary Integumentary: Present: clear, warm, dry - Psychiatric Psychiatric: appropriate mood/affect, intact judgment & insight, cooperative - Neurologic Neurologic: CNII-XII intact - Constitutional Vitals: Temp Pulse Resp BP Pulse Ox 98.3 F 67 18 126/44 100 08/30/18 04:30 08/30/18 04:30 08/30/18 04:30 08/30/18 04:30 08/30/18 04:30 General appearance: Present: no acute distress, well-nourished Results - Labs CBC & Chem 7: 08/31/18 07:35 08/31/18 07:35 Labs: Laboratory Last Values WBC 11.6 K/mm3 (4.5-11.0) H 08/29/18 08:13 RBC 2.94 M/mm3 (3.65-5.03) L 08/29/18 08:13 Hgb 8.9 gm/dl (10.1-14.3) L 08/29/18 08:13 Hct 26.4 % (30.3-42.9) L 08/29/18 08:13 MCV 90 fl (79-97) 08/29/18 08:13 MCH 30 pg (28-32) 08/29/18 08:13 MCHC 34 % (30-34) 08/29/18 08:13 RDW 15.9 % (13.2-15.2) H 08/29/18 08:13 Plt Count 235 K/mm3 (140-440) 08/29/18 08:13 Lymph % (Auto) 9.1 % (13.4-35.0) L 08/29/18 08:13 [place] % (Auto) 8.9 % (0.0-7.3) H 08/29/18 08:13 Eos % (Auto) 2.3 % (0.0-4.3) 08/29/18 08:13 Baso % (Auto) 1.3 % (0.0-1.8) 08/29/18 08:13 Lymph # 1.0 K/mm3 (1.2-5.4) L 08/29/18 08:13 [place] # 1.0 K/mm3 (0.0-0.8) H 08/29/18 08:13 Eos # 0.3 K/mm3 (0.0-0.4) 08/29/18 08:13 Baso # 0.1 K/mm3 (0.0-0.1) 08/29/18 08:13 Seg Neutrophils % 78.4 % (40.0-70.0) H 08/29/18 08:13 Seg Neutrophils # 9.1 K/mm3 (1.8-7.7) H 08/29/18 08:13 Sodium 135 mmol/L (137-145) L 08/29/18 08:13 Potassium 4.1 mmol/L (3.6-5.0) 08/29/18 08:13 Chloride 95.6 mmol/L (98-107) L 08/29/18 08:13 Carbon Dioxide 23 mmol/L (22-30) 08/29/18 08:13 Anion Gap 21 mmol/L 08/29/18 08:13 BUN 26 mg/dL (7-17) H 08/29/18 08:13 Creatinine 6.5 mg/dL (0.7-1.2) H 08/29/18 08:13 Estimated GFR 6 ml/min 08/29/18 08:13 BUN/Creatinine Ratio 4 % 08/29/18 08:13 Glucose 191 mg/dL (65-100) H 08/29/18 08:13 POC Glucose 359 (70-105) H 08/29/18 20:40 Hemoglobin A1c 7.5 % (4-6) H 08/28/18 01:04 Calcium 8.9 mg/dL (8.4-10.2) 08/29/18 08:13 Total Bilirubin 0.30 mg/dL (0.1-1.2) 08/29/18 08:13 AST 6 units/L (5-40) 08/29/18 08:13 ALT 6 units/L (7-56) L 08/29/18 08:13 Alkaline Phosphatase 74 units/L (35-129) 08/29/18 08:13 Total Protein 6.8 g/dL (6.3-8.2) 08/29/18 08:13 Albumin 3.3 g/dL (3.9-5) L 08/29/18 08:13 Albumin/Globulin Ratio 0.9 % 08/29/18 08:13 Hepatitis A IgM Ab Non-reactive (NonReactive) 08/27/18 12:59 Hep Bs Antigen Non-reactive (Negative) 08/27/18 12:59 Hep B Core IgM Ab Non-reactive (NonReactive) 08/27/18 12:59 Hepatitis C Antibody Reactive (NonReactive) A 08/27/18 12:59 Nutrition/Malnutrition Assess - Dietary Evaluation Nutrition/Malnutrition Findings: Nutrition Notes Start: 08/28/18 10:25 Freq: Status: Active Protocol: Document 08/28/18 10:26 LM (Rec: 08/28/18 11:33 LM [id number]) Co-Sign 08/28/18 10:26 LP Nutrition Notes Need for Assessment generated from: event staff Initial or Follow up Assessment Current Diagnosis CKD (stage V CKD) Diabetes Hypertension Other Pertinent Diagnosis Hep C, on HD Current Diet Renal Labs/Tests Na 136 BUN 23 Creat 4.6 BG 179 Pertinent Medications Lasix Lantus Height 5 ft 6 in Weight 87.2 kg [place] Body Weight (lbs) 130.0 BMI 31.0 Subjective/Other Information Consult for MST. Pt stated she has not been eating well due to having N/V/D for 3 weeks. Pt stated her N/V/D was due to previouslt having pnemonia and the flu. Pt siad she has noticed that she has been gradully losing weight since N /V/D started. Pt unaware of her UBW. Food preferences taken. Discussed nutrition for N/V. Burn Absent Trauma Absent GI Symptoms Nausea Vomiting Diarrhea #1 Nutrition Diagnosis Inadequate oral intake Etiology Nausea, vomitng, diarrhea As Evidenced by Signs and Symptoms Intakes less than 75% Is patient on ventilator? No Is Patient Ambulatory and/or Out of Bed Yes REE-([facility]-ambulatory/OOB) [ 1870.375 NUTR.[id number]] Calculation Used for Recommendations [facility] Additional Notes Protein: 104-113 g (1.2-1.3 g/ kg) Fluids: 1-1.5 L/day Nutrition Intervention Change Diet Order: Continue Renal Goal #1 Meet at least 75% of energy and protein needs Goal #2 Diet toleance Anticipated Discharge Needs: Renal diet Follow-Up By: 08/31/18 Additional Comments F/U for intakes/ONS needs
[2018-08-30] MEDS: HumaLOG SUB-Q SCH ×4 (07:45→21:55)
[2018-08-30] MEDS: HEPARIN SUB-Q SCH ×2 (09:25→22:00)
[2018-08-30] MEDS: LASIX PO SCH (09:26)
[2018-08-30] MEDS: PEPCID PO SCH (09:27)
[2018-08-30] MEDS: NORVASC PO SCH (09:27)
[2018-08-30] MEDS: SODIUM CHLORIDE FLUSH SYRINGE 10 ML IV SCH ×2 (09:29→22:04)
[2018-08-30] MEDS: ZOFRAN ODT PO SCH ×3 (09:29→21:53)
[2018-08-30] MEDS: ZOLOFT PO SCH (09:29)
--- NOTE | 2018-08-30 12:00 | Progress Note ---
Assessment and Plan Impression: * End stage renal disease * Diarrhea * Hep C virus * Hypertension * Type II DM * Anemia secondary to ESRD * Secondary hyperPTH * Medical noncompliance Plan: * Hemodialysis TTS schedule * UF as tolerated * GI recommendations noted * Dose medications for renal function * Epogen TIW prn * Renal diet Subjective Date of service: 08/30/18 Interval history: No acute events overnight. She complains of abdominal discomfort Objective - Vital Signs Vital signs: Vital Signs - 12hr 08/30/18 04:30 Temperature 98.3 F Pulse Rate 67 Respiratory 18 Rate Blood Pressure 126/44 O2 Sat by Pulse 100 Oximetry - General Appearance General appearance: well-developed, well-nourished EENT: ATNC Respiratory: Present: Clear to Ascultation Cardiology: regular, S1S2 Gastrointestinal: normal, no tenderness, no distended Integumentary: no rash, warm and dry Neurologic: alert and oriented x3 Musculoskeletal: other (no edema) Psychiatric: cooperative - Lab 08/29/18 08:13 08/29/18 08:13 Most recent lab results Calcium 8.9 mg/dL (8.4-10.2) 08/29/18 08:13 Medications & Allergies - Medications Allergies/Adverse Reactions: Allergies acetaminophen [From Lorcet (hydrocodone)] Allergy (Verified 09/06/14 04:14) Rash carbamazepine [From Tegretol] Allergy (Verified 09/06/14 04:14) Rash cefaclor [From Ceclor] Allergy (Verified 09/06/14 04:14) Rash cephalexin monohydrate [From Keflex] Allergy (Verified 09/06/14 04:14) Rash chlorpheniramine maleate [From Isoclor] Allergy (Verified 09/06/14 04:14) Rash codeine phosphate [From Isoclor] Allergy (Verified 09/06/14 04:14) Rash guaifenesin [From Isoclor] Allergy (Verified 09/06/14 04:14) Rash hydrocodone Allergy (Verified 09/06/14 04:14) Rash hydrocodone bitartrate [From Lorcet (hydrocodone)] Allergy (Verified 09/06/14 04:14) Rash indomethacin [From Indocin] Allergy (Verified 09/06/14 04:14) Rash indomethacin sodium [From Indocin] Allergy (Verified 09/06/14 04:14) Rash ofloxacin [From Floxin] Allergy (Verified 09/06/14 04:14) Rash oxycodone HCl [From Percocet] Allergy (Verified 09/06/14 04:14) Rash Penicillins Allergy (Verified 09/06/14 04:14) Rash promethazine HCl [From Phenergan] Allergy (Verified 09/06/14 04:14) Rash pseudoephedrine Allergy (Verified 09/06/14 04:14) Rash pseudoephedrine HCl [From Isoclor] Allergy (Verified 09/06/14 04:14) Rash Sulfa (Sulfonamide Antibiotics) Allergy (Verified 09/06/14 04:14) Rash sulfamethoxazole [From Bactrim] Allergy (Verified 09/06/14 04:14) Rash tetracycline Allergy (Verified 09/06/14 04:14) Rash tetracycline HCl [From Sumycin] Allergy (Verified 09/06/14 04:14) Rash trimethoprim [From Bactrim] Allergy (Verified 09/06/14 04:14) Rash valacyclovir HCl [From Valtrex] Allergy (Verified 09/06/14 04:14) Rash Home Medications: Home Medications Medication Instructions Recorded Confirmed Last Taken Type Insulin Aspart [NovoLOG Flexpen] 0 units SUB-Q DAILY 09/09/14 08/27/18 08/26/18 History Insulin Detemir [Levemir Flextouch] 0 units SUB-Q HS 09/09/14 08/27/18 08/26/18 History AtorvaSTATin [Lipitor] 20 mg PO QHS 08/27/18 08/27/18 08/26/18 History Furosemide [Lasix TAB] 20 mg PO QDAY 08/27/18 08/27/18 08/26/18 History Gabapentin [Neurontin] 1,200 mg PO TID 08/27/18 08/27/18 08/26/18 History Ondansetron [Zofran Odt] 4 mg PO Q8HR 08/27/18 08/27/18 08/26/18 History Pantoprazole [Protonix] 40 mg PO QDAY 08/27/18 08/27/18 08/26/18 History Sertraline [Zoloft] 50 mg PO QDAY 08/27/18 08/27/18 08/26/18 History Zolpidem [Ambien] 10 mg PO QHS 08/27/18 08/27/18 08/26/18 History amLODIPine [Norvasc] 5 mg PO DAILY 08/27/18 08/27/18 08/26/18 History Active Medications: Generic Name Dose Route Start Last Admin Trade Name Freq PRN Reason Stop Dose Admin Acetaminophen 650 mg 08/28/18 00:31 08/28/18 02:54 Tylenol PO 650 mg Q4H PRN Administration Pain MILD(1-3)/Fever >100.5/TAMEZ Amlodipine Besylate 5 mg 08/28/18 10:00 08/30/18 09:27 Norvasc PO 5 mg DAILY FOSTER Administration Atorvastatin Calcium 20 mg 08/28/18 22:00 08/29/18 21:45 Lipitor PO 20 mg QHS FOSTER Administration Dextrose 50 ml 08/28/18 14:24 D50w (25gm) Syringe IV PRN PRN Hypoglycemia Famotidine 20 mg 08/28/18 10:00 08/30/18 09:27 Pepcid PO 20 mg QAM FOSTER Administration Furosemide 20 mg 08/28/18 10:00 08/30/18 09:26 Lasix PO Not Given QDAY FOSTER Gabapentin 800 mg 08/29/18 20:00 08/30/18 08:28 Neurontin PO 800 mg TID [facility] Administration Heparin Sodium (Porcine) 5,000 unit 08/28/18 10:00 08/30/18 09:25 Heparin SUB-Q Not Given Q12HR [facility] Hydralazine HCl 10 mg 08/28/18 14:25 Apresoline IV Q4HR PRN BP >160/100 Hydromorphone HCl 0.5 mg 08/28/18 00:31 Dilaudid IV Q3H PRN Pain , Severe (7-10) Sodium Chloride 100 mls @ 999 mls/hr 08/29/18 10:34 Nacl 0.9% IV ANJELICA PRN Hypotension Insulin Glargine 20 units 08/30/18 22:00 Lantus SUB-Q HS [facility] Insulin Human Lispro 0 unit 08/28/18 16:30 08/30/18 07:45 Humalog SUB-Q Not Given ACHS [facility] Protocol Ondansetron HCl 4 mg 08/28/18 01:00 08/30/18 09:29 Zofran Odt PO 4 mg Q8HR [facility] Administration Sertraline HCl 50 mg 08/28/18 10:00 08/30/18 09:29 Zoloft PO Not Given QDAY [facility] Sodium Chloride 10 ml 08/28/18 10:00 08/30/18 09:29 Sodium Chloride Flush Syringe 10 Ml IV 10 ml BID [facility] Administration Sodium Chloride 10 ml 08/28/18 00:31 Sodium Chloride Flush Syringe 10 Ml IV PRN PRN LINE FLUSH Vancomycin HCl 125 mg 08/28/18 18:00 08/30/18 09:27 Vancomycin Po PO 125 mg Q6HR [facility] Administration Zolpidem Tartrate 10 mg 08/28/18 22:00 08/29/18 21:45 Ambien PO 10 mg QHS [facility] Administration
--- NOTE | 2018-08-30 13:08 | Gastroenterology Progress Note ---
Assessment and Plan 1. Diarrhea - resolved, cont supportive care and complete course of empiric abx; c diff was pending 2. Abdominal pain - improving; CT scan w/o contrast with some GB wall edema of unclear significance. symptoms seem atypical for GB source, however if symptoms return/do not improve, consider HIDA scan and surgery consult Will sign off, please call as needed or with questions. Subjective Date of service: 08/30/18 Principal diagnosis: abdominal pain, diarrhea Interval history: pt seen and examined. diarrhea resolved. abd pain improved. still with nausea and dizziness which are her main complaints today. Objective - Constitutional Vitals: Temp Pulse Resp BP Pulse Ox 98.0 F 81 20 122/49 95 08/30/18 12:07 08/30/18 12:07 08/30/18 12:07 08/30/18 12:07 08/30/18 12:07 General appearance: no acute distress - Respiratory Respiratory effort: normal Respiratory: bilateral: CTA - Cardiovascular Rhythm: regular Heart Sounds: Present: S1 & S2 - Extremities Extremities: No edema - Gastrointestinal General gastrointestinal: Present: soft, non-tender, non-distended - Neurologic Neurological: alert and oriented x3 - Psychiatric Psychiatric: appropriate mood/affect - Labs CBC & Chem 7: 08/29/18 08:13 08/29/18 08:13 Labs: Laboratory Results - last 24 hr 08/29/18 08/30/18 08/30/18 20:40 07:30 11:21 POC Glucose 359 H 148 H 260 H - Imaging CT scan: report reviewed
--- NOTE | 2018-08-30 14:21 | Consultation ---
History of Present Illness - Reason for Consult Consult date: 08/30/18 diarrhea/HCV Requesting physician: PEPITO HEARD - History of Present Illness 63 y/o female with history of DM, HCV follows Dr Skinny Warner), ESRD on HD, recurrentl UTIs, previous MSSA/GAS bacteremia and C diff colitis in Jul 2014, admitted on 08/27/201864 a week history of generalized weakness and diarrhea 4-6 times a day. Of note, patient was recently dicharge from [facility] from 08/11-08/19/18 due to presumed pneumonia/influenza treated with tamiflu for 5 days. Influenza PCR 08/12/18 negative. Blood culture 08/11/2018 grew Corynebacterium sp felt to be a contaminant and repeat blood culture 08/13/2018 negative. Urine cx >100K normal skin aga. CXR at [facility] shows patchy hilar infiltrates. Patient missed several HD apt due to diarrhea. In the ED, temp 98.3, HR 77, R 15, BP 158/49, O2 sat 99%. WBC 10.1. Hg 9.6. Plat 325. Creat 8.2. Glu 240. A1C 7.5. CT showed cholelithiasis and mild GB wall edema. ROS: General: no fever, no chills, no nightsweats,+ weakness, + anorexia Cutaneous: no rash, pruritus Head: no headaches or injury Eyes: no changes in vision, eye pain, double vision Ears: no ear pain, ear discharge, ringing or hearing loss Nose: no nose bleeding, stuffiness Mouth & throat: no bleeding gums, no horseness, no dental problems, or swollen glands Neck: no pain, node enlargement/lumps, tyroid enlargement or tenderness Respiratory: no cough, wheezing, no sputum, hemoptysis, pleuritic chest pain Cardiovascular: no chest pain, leg edema, cyanosis, BARNES, orthopnea Musculoskeletal: no decreased joint motion, + left leg tenderness, no swelling Gastrointestinal: + nausea, no vomiting, hematemesis, + diarrhea, constipation, Genitourinary/Reproductive: + frequent urination, no dysuria, hematuria, incontinence Neurogical: no seizures, no headaches, no weakness, no paresthesias, no loss of speech or vision Psychiatric: stable mood; no excessive anxiety, sadness or moodiness Past History Past Medical History: diabetes, DVT, ESRD, hypertension Past Surgical History: Other (fibroid removal) Social history: no significant social history Family history: no significant family history Medications and Allergies Allergies Allergy/AdvReac Type Severity Reaction Status Date / Time acetaminophen Allergy Rash Verified 09/06/14 04:14 [From Lorcet (hydrocodone)] carbamazepine [From Tegretol] Allergy Rash Verified 09/06/14 04:14 cefaclor [From Ceclor] Allergy Rash Verified 09/06/14 04:14 cephalexin monohydrate Allergy Rash Verified 09/06/14 04:14 [From Keflex] chlorpheniramine maleate Allergy Rash Verified 09/06/14 04:14 [From Isoclor] codeine phosphate Allergy Rash Verified 09/06/14 04:14 [From Isoclor] guaifenesin [From Isoclor] Allergy Rash Verified 09/06/14 04:14 hydrocodone Allergy Rash Verified 09/06/14 04:14 hydrocodone bitartrate Allergy Rash Verified 09/06/14 04:14 [From Lorcet (hydrocodone)] indomethacin [From Indocin] Allergy Rash Verified 09/06/14 04:14 indomethacin sodium Allergy Rash Verified 09/06/14 04:14 [From Indocin] ofloxacin [From Floxin] Allergy Rash Verified 09/06/14 04:14 oxycodone HCl [From Percocet] Allergy Rash Verified 09/06/14 04:14 Penicillins Allergy Rash Verified 09/06/14 04:14 promethazine HCl Allergy Rash Verified 09/06/14 04:14 [From Phenergan] pseudoephedrine Allergy Rash Verified 09/06/14 04:14 pseudoephedrine HCl Allergy Rash Verified 09/06/14 04:14 [From Isoclor] Sulfa (Sulfonamide Allergy Rash Verified 09/06/14 04:14 Antibiotics) sulfamethoxazole Allergy Rash Verified 09/06/14 04:14 [From Bactrim] tetracycline Allergy Rash Verified 09/06/14 04:14 tetracycline HCl Allergy Rash Verified 09/06/14 04:14 [From Sumycin] trimethoprim [From Bactrim] Allergy Rash Verified 09/06/14 04:14 valacyclovir HCl Allergy Rash Verified 09/06/14 04:14 [From Valtrex] Home Medications Medication Instructions Recorded Confirmed Last Taken Type Insulin Aspart [NovoLOG Flexpen] 0 units SUB-Q DAILY 09/09/14 08/27/18 08/26/18 History Insulin Detemir [Levemir Flextouch] 0 units SUB-Q HS 09/09/14 08/27/18 08/26/18 History AtorvaSTATin [Lipitor] 20 mg PO QHS 08/27/18 08/27/18 08/26/18 History Furosemide [Lasix TAB] 20 mg PO QDAY 08/27/18 08/27/18 08/26/18 History Gabapentin [Neurontin] 1,200 mg PO TID 08/27/18 08/27/18 08/26/18 History Ondansetron [Zofran Odt] 4 mg PO Q8HR 08/27/18 08/27/18 08/26/18 History Pantoprazole [Protonix] 40 mg PO QDAY 08/27/18 08/27/18 08/26/18 History Sertraline [Zoloft] 50 mg PO QDAY 08/27/18 08/27/18 08/26/18 History Zolpidem [Ambien] 10 mg PO QHS 08/27/18 08/27/18 08/26/18 History amLODIPine [Norvasc] 5 mg PO DAILY 08/27/18 08/27/18 08/26/18 History Active Meds: Active Medications Acetaminophen (Tylenol) 650 mg PO Q4H PRN PRN Reason: Pain MILD(1-3)/Fever >100.5/TAMEZ Last Admin: 08/28/18 02:54 Dose: 650 mg Documented by: Amlodipine Besylate (Norvasc) 5 mg PO DAILY [facility] Last Admin: 08/30/18 09:27 Dose: 5 mg Documented by: Atorvastatin Calcium (Lipitor) 20 mg PO QHS [facility] Last Admin: 08/29/18 21:45 Dose: 20 mg Documented by: Dextrose (D50w (25gm) Syringe) 50 ml IV PRN PRN PRN Reason: Hypoglycemia Famotidine (Pepcid) 20 mg PO QAM [facility] Last Admin: 08/30/18 09:27 Dose: 20 mg Documented by: Furosemide (Lasix) 20 mg PO QDAY [facility] Last Admin: 08/30/18 09:26 Dose: Not Given Documented by: Gabapentin (Neurontin) 800 mg PO TID [facility] Last Admin: 08/30/18 08:28 Dose: 800 mg Documented by: Heparin Sodium (Porcine) (Heparin) 5,000 unit SUB-Q Q12HR [facility] Last Admin: 08/30/18 09:25 Dose: Not Given Documented by: Hydralazine HCl (Apresoline) 10 mg IV Q4HR PRN PRN Reason: BP >160/100 Hydromorphone HCl (Dilaudid) 0.5 mg IV Q3H PRN PRN Reason: Pain , Severe (7-10) Sodium Chloride (Nacl 0.9%) 100 mls @ 999 mls/hr IV ANJELICA PRN PRN Reason: Hypotension Insulin Glargine (Lantus) 20 units SUB-Q [facility] Insulin Human Lispro (Humalog) 0 unit SUB-Q [facility]; Protocol Last Admin: 08/30/18 11:30 Dose: 3 unit Documented by: Ondansetron HCl (Zofran Odt) 4 mg PO Q8HR [facility] Last Admin: 08/30/18 09:29 Dose: 4 mg Documented by: Sertraline HCl (Zoloft) 50 mg PO QDAY [facility] Last Admin: 08/30/18 09:29 Dose: Not Given Documented by: Sodium Chloride (Sodium Chloride Flush Syringe 10 Ml) 10 ml IV BID [facility] Last Admin: 08/30/18 09:29 Dose: 10 ml Documented by: Sodium Chloride (Sodium Chloride Flush Syringe 10 Ml) 10 ml IV PRN PRN PRN Reason: LINE FLUSH Vancomycin HCl (Vancomycin Po) 125 mg PO Q6HR [facility] Last Admin: 08/30/18 09:27 Dose: 125 mg Documented by: Zolpidem Tartrate (Ambien) 10 mg PO QHS [facility] Last Admin: 08/29/18 21:45 Dose: 10 mg Documented by: Physical Examination - Physical Exam Narrative exam: Constitutional: Alert, cooperative. in NAD Head, Ears, Nose: Normocephalic, atraumatic. External ears, nose normal Eyes: Conjunctivae/corneas clear. No icterus. No ptosis. Neck: Supple, no meningeal signs Oral: dentition poor no thrush Cardiovascular: RRR Respiratory: CTAB GI: Soft, non-tender; bowel sounds normal. No peritoneal signs Musculoskeletal: No pedal edema, no cyanosis. Skin: No rash or abscess. Hem/Lymphatic: No palpable cervical or supraclavicular nodes. No lymphangitis Psych: Mood ok. Affect normal Neurological: Awake, alert, oriented. - Constitutional Vitals: Vital Signs Temp Pulse Resp BP Pulse Ox 98.0 F 81 20 122/49 95 08/30/18 12:07 08/30/18 12:07 08/30/18 12:07 08/30/18 12:07 08/30/18 12:07 Temperature -Last 24 Hours Temperature 98.0 F Temperature 98.3 F Temperature 98.3 F Temperature 98.2 F Results - Labs CBC & Chem 7: 08/29/18 08:13 08/29/18 08:13 Labs: Abnormal lab results 08/29/18 08/30/18 08/30/18 Range/Units 20:40 07:30 11:21 POC Glucose 359 H 148 H 260 H (70-105) Assessment and Plan Cultures: none A/P: 63 y/o female with history of DM, HCV follows Dr Babb ([place]), ESRD on HD, recurrentl UTIs, previous MSSA/GAS bacteremia and C diff colitis in Jul 2014, admitted on 08/27/201864 a week history of generalized weakness and diarrhea 4-6 times a day: Acute diarrhea, abdominal pain, N/V/D: currently resolved; unclear etiology, no septic picture on admission, likely viral vs recurrent C diff vs cholecystitis. Patient with history of C diff colitis in 2013. CT cholelithiasis and mild GB wall edema. Diarrhea resolved, started on vancomycin PO on 08/28/2018 Recently dicharge from [facility] from 08/11-08/19/18 due to presumed pneumonia/influenza treated with tamiflu for 5 days. Influenza PCR 08/12/18 negative. Blood culture 08/11/2018 grew Corynebacterium sp felt to be a contaminant and repeat blood c ulture 08/13/2018 negative. Urine cx >100K normal skin aga. CXR shows patchy hilar infiltrates. DM: uncontrolled HCV: known for several years, follows Dr Babb GI med. Recs: Continue vancomycin PO 125 mg QID total 14 days for presumed recurrent C diff colitis. Cdiff was not collected on admission as ordered and now she has no diarrhea for 48h. Avoid broad spectrum antibiotics HCV management per Dr Babb No contact isolation since diarrhea resolved for 48h Psych eval since patient has been missing HD and feels depressed Marjan Yates, MD [facility] C: [phone] O: [phone] F: [phone]
[2018-08-30] MEDS: AMBIEN PO SCH (21:54)
[2018-08-30] MEDS: LANTUS SUB-Q SCH (21:56)
[2018-08-31] MEDS: VANCOMYCIN PO PO SCH ×3 (05:23→17:58)
[2018-08-31] MEDS: ZOFRAN ODT PO SCH ×3 (05:23→22:12)
[2018-08-31 07:53] LABS: Hemoglobin 8.7 gm/dl (10.1-14.3); Mean Corpuscular HGB Conc 33 % (30-34); Mean Corpuscular Volume 91 fl (79-97); Platelet Count 235 K/mm3 (140-440); Red Blood Count 2.87 M/mm3 (3.65-5.03); Red Cell Distribution Width 16.2 % (13.2-15.2)
[2018-08-31 08:17] LABS: Calcium 8.7 mg/dL (8.4-10.2)
--- NOTE | 2018-08-31 08:52 | Progress Note ---
Assessment and Plan Impression: * End stage renal disease * Diarrhea * Hep C virus * Hypertension * Type II DM * Anemia secondary to ESRD * Secondary hyperPTH * Medical noncompliance Plan: * Hemodialysis TTS schedule * UF as tolerated * GI recommendations noted * Dose medications for renal function * Epogen TIW prn * Renal diet Subjective Date of service: 08/31/18 Principal diagnosis: abdominal pain, diarrhea Interval history: Patient complains of dizziness Objective - Vital Signs Vital signs: Vital Signs - 12hr 08/30/18 08/30/18 08/31/18 22:00 23:22 04:45 Temperature 99.4 F 98.2 F Pulse Rate 75 79 Respiratory 18 18 20 Rate Blood Pressure 125/57 146/59 O2 Sat by Pulse 93 93 98 Oximetry - General Appearance General appearance: well-developed, well-nourished EENT: ATNC Respiratory: Present: Clear to Ascultation Cardiology: regular, S1S2 Gastrointestinal: normal, no tenderness, no distended Integumentary: no rash, warm and dry Musculoskeletal: other (no edema) Psychiatric: cooperative - Lab 08/31/18 07:35 08/31/18 07:35 Most recent lab results Calcium 8.7 mg/dL (8.4-10.2) 08/31/18 07:35 Medications & Allergies - Medications Allergies/Adverse Reactions: Allergies acetaminophen [From Lorcet (hydrocodone)] Allergy (Verified 09/06/14 04:14) Rash carbamazepine [From Tegretol] Allergy (Verified 09/06/14 04:14) Rash cefaclor [From Ceclor] Allergy (Verified 09/06/14 04:14) Rash cephalexin monohydrate [From Keflex] Allergy (Verified 09/06/14 04:14) Rash chlorpheniramine maleate [From Isoclor] Allergy (Verified 09/06/14 04:14) Rash codeine phosphate [From Isoclor] Allergy (Verified 09/06/14 04:14) Rash guaifenesin [From Isoclor] Allergy (Verified 09/06/14 04:14) Rash hydrocodone Allergy (Verified 09/06/14 04:14) Rash hydrocodone bitartrate [From Lorcet (hydrocodone)] Allergy (Verified 09/06/14 04:14) Rash indomethacin [From Indocin] Allergy (Verified 09/06/14 04:14) Rash indomethacin sodium [From Indocin] Allergy (Verified 09/06/14 04:14) Rash ofloxacin [From Floxin] Allergy (Verified 09/06/14 04:14) Rash oxycodone HCl [From Percocet] Allergy (Verified 09/06/14 04:14) Rash Penicillins Allergy (Verified 09/06/14 04:14) Rash promethazine HCl [From Phenergan] Allergy (Verified 09/06/14 04:14) Rash pseudoephedrine Allergy (Verified 09/06/14 04:14) Rash pseudoephedrine HCl [From Isoclor] Allergy (Verified 09/06/14 04:14) Rash Sulfa (Sulfonamide Antibiotics) Allergy (Verified 09/06/14 04:14) Rash sulfamethoxazole [From Bactrim] Allergy (Verified 09/06/14 04:14) Rash tetracycline Allergy (Verified 09/06/14 04:14) Rash tetracycline HCl [From Sumycin] Allergy (Verified 09/06/14 04:14) Rash trimethoprim [From Bactrim] Allergy (Verified 09/06/14 04:14) Rash valacyclovir HCl [From Valtrex] Allergy (Verified 09/06/14 04:14) Rash Home Medications: Home Medications Medication Instructions Recorded Confirmed Last Taken Type Insulin Aspart [NovoLOG Flexpen] 0 units SUB-Q DAILY 09/09/14 08/27/18 08/26/18 History Insulin Detemir [Levemir Flextouch] 0 units SUB-Q HS 09/09/14 08/27/18 08/26/18 History AtorvaSTATin [Lipitor] 20 mg PO QHS 08/27/18 08/27/18 08/26/18 History Furosemide [Lasix TAB] 20 mg PO QDAY 08/27/18 08/27/18 08/26/18 History Gabapentin [Neurontin] 1,200 mg PO TID 08/27/18 08/27/18 08/26/18 History Ondansetron [Zofran Odt] 4 mg PO Q8HR 08/27/18 08/27/18 08/26/18 History Pantoprazole [Protonix] 40 mg PO QDAY 08/27/18 08/27/18 08/26/18 History Sertraline [Zoloft] 50 mg PO QDAY 08/27/18 08/27/1819 History Zolpidem [Ambien] 10 mg PO QHS 08/27/18 08/27/18 08/26/18 History amLODIPine [Norvasc] 5 mg PO DAILY 08/27/18 08/27/18 08/26/18 History Active Medications: Generic Name Dose Route Start Last Admin Trade Name Freq PRN Reason Stop Dose Admin Acetaminophen 650 mg 08/28/18 00:31 08/28/18 02:54 Tylenol PO 650 mg Q4H PRN Administration Pain MILD(1-3)/Fever >100.5/TAMEZ Amlodipine Besylate 5 mg 08/28/18 10:00 08/30/18 09:27 Norvasc PO 5 mg DAILY FOSTER Administration Atorvastatin Calcium 20 mg 08/28/18 22:00 08/30/18 22:00 Lipitor PO Not Given QHS FOSTER Dextrose 50 ml 08/28/18 14:24 D50w (25gm) Syringe IV PRN PRN Hypoglycemia Famotidine 20 mg 08/28/18 10:00 08/30/18 09:27 Pepcid PO 20 mg QAM FOSTER Administration Furosemide 20 mg 08/28/18 10:00 08/30/18 09:26 Lasix PO Not Given QDAY FOSTER Gabapentin 800 mg 08/29/18 20:00 08/30/18 19:54 Neurontin PO 800 mg TID FOSTER Administration Heparin Sodium (Porcine) 5,000 unit 08/28/18 10:00 08/30/18 22:00 Heparin SUB-Q Not Given Q12HR FOSTER Hydralazine HCl 10 mg 08/28/18 14:25 Apresoline IV Q4HR PRN BP >160/100 Hydromorphone HCl 0.5 mg 08/28/18 00:31 Dilaudid IV Q3H PRN Pain , Severe (7-10) Sodium Chloride 100 mls @ 999 mls/hr 08/29/18 10:34 Nacl 0.9% IV ANJELICA PRN Hypotension Insulin Glargine 20 units 08/30/18 22:00 08/30/18 21:56 Lantus SUB-Q 20 units HS FOSTER Administration Insulin Human Lispro 0 unit 08/28/18 16:30 08/30/18 21:55 Humalog SUB-Q 6 unit ACHS FOSTER Administration Protocol Ondansetron HCl 4 mg 08/28/18 01:00 08/31/18 05:23 Zofran Odt PO 4 mg Q8HR FOSTER Administration Sertraline HCl 50 mg 08/28/18 10:00 08/30/18 09:29 Zoloft PO Not Given QDAY FOSTER Sodium Chloride 10 ml 08/28/18 10:00 08/30/18 22:04 Sodium Chloride Flush Syringe 10 Ml IV 10 ml BID FOSTER Administration Sodium Chloride 10 ml 08/28/18 00:31 Sodium Chloride Flush Syringe 10 Ml IV PRN PRN LINE FLUSH Vancomycin HCl 125 mg 08/28/18 18:00 08/31/18 05:23 Vancomycin Po PO 125 mg Q6HR FOSTER Administration Zolpidem Tartrate 10 mg 08/28/18 22:00 08/30/18 21:54 Ambien PO 10 mg QHS FOSTER Administration
--- NOTE | 2018-08-31 09:46 | Progress Note ---
Assessment and Plan Cultures: none A/P: 63 y/o female with history of DM, HCV follows Dr Babb ([place]), ESRD on HD, recurrentl UTIs, previous MSSA/GAS bacteremia and C diff colitis in Jul 2014, admitted on 08/27/201864 a week history of generalized weakness and diarrhea 4-6 times a day: Acute diarrhea, abdominal pain, N/V/D: currently resolved; unclear etiology, no septic picture on admission, likely viral vs recurrent C diff vs cholecystitis. Patient with history of C diff colitis in 2013. CT cholelithiasis and mild GB wall edema. Diarrhea resolved, started on vancomycin PO on 08/28/2018 Recently discharged from [facility] from 08/11-08/19/18 due to presumed pneumonia/influenza treated with tamiflu for 5 days. Influenza PCR 08/12/18 negative. Blood culture 08/11/2018 grew Corynebacterium sp felt to be a contaminant and repeat blood culture 08/13/2018 negative. Urine cx >100K normal skin aga. CXR shows patchy hilar infiltrates. DM: uncontrolled HCV: known for several years, follows Dr Babb GI med. 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 Denied generalized pain, SOB, fevers or rashes. Stated that she was feeling better today, reported one loose stool. Objective - Exam Narrative Exam: Constitutional: Alert, cooperative. in NAD Head, Ears, Nose: Normocephalic, atraumatic. External ears, nose normal Eyes: Conjunctivae/corneas clear. No icterus. No ptosis. Neck: Supple, no meningeal signs Oral: dentition poor no thrush Cardiovascular: RRR Respiratory: CTAB GI: Soft, non-tender; bowel sounds normal. No peritoneal signs Musculoskeletal: No pedal edema, no cyanosis. Skin: No rash or abscess. Hem/Lymphatic: No palpable cervical or supraclavicular nodes. No lymphangitis Psych: Mood ok. Affect normal Neurological: Awake, alert, oriented. - Constitutional Vitals: Vital Signs Temp Pulse Resp BP Pulse Ox 98.2 F 79 20 146/59 98 08/31/18 04:45 08/31/18 04:45 08/31/18 04:45 08/31/18 04:45 08/31/18 04:45 Temperature -Last 24 Hours Temperature 98.2 F Temperature 99.4 F Temperature 98.9 F Temperature 98.0 F - Labs CBC & Chem 7: 08/31/18 07:35 08/31/18 07:35 Labs: Abnormal lab results 08/30/18 08/30/18 08/30/18 Range/Units 11:21 16:00 21:25 RBC (3.65-5.03) M/mm3 Hgb (10.1-14.3) gm/dl Hct (30.3-42.9) % RDW (13.2-15.2) % Sodium (137-145) mmol/L Chloride (98-107) mmol/L BUN (7-17) mg/dL Creatinine (0.7-1.2) mg/dL Glucose (65-100) mg/dL POC Glucose 260 H 263 H 284 H (70-105) 08/31/18 08/31/18 08/31/18 Range/Units 07:35 07:35 07:53 RBC 2.87 L (3.65-5.03) M/mm3 Hgb 8.7 L (10.1-14.3) gm/dl Hct 26.0 L (30.3-42.9) % RDW 16.2 H (13.2-15.2) % Sodium 136 L (137-145) mmol/L Chloride 95.1 L (98-107) mmol/L BUN 24 H (7-17) mg/dL Creatinine 5.7 H (0.7-1.2) mg/dL Glucose 205 H (65-100) mg/dL POC Glucose 203 H (70-105)
[2018-08-31] MEDS: HumaLOG SUB-Q SCH ×4 (10:15→22:13)
[2018-08-31] MEDS: NEURONTIN PO SCH ×3 (10:15→22:12)
[2018-08-31] MEDS: SODIUM CHLORIDE FLUSH SYRINGE 10 ML IV SCH ×2 (10:16→22:19)
[2018-08-31] MEDS: PEPCID PO SCH (10:16)
[2018-08-31] MEDS: LASIX PO SCH (10:16)
[2018-08-31] MEDS: NORVASC PO SCH (10:16)
[2018-08-31] MEDS: ZOLOFT PO SCH (10:16)
[2018-08-31] MEDS: HEPARIN SUB-Q SCH ×2 (10:16→22:19)
--- NOTE | 2018-08-31 11:06 | Progress Note ---
Assessment and Plan Assessment and plan: 63 y/o female sent from Dialysis center for missing HD for 8 days, she states that she missed dialysis because she was very sick and having diarrhea.Patient is c/o sob and diarrhea, Sob is improved, she is having non stop watery diarrhea, >10 episodes per day - Patient Problems (1) Diarrhea Current Visit: Yes Status: Acute Plan to address problem: Diarrhea patient still has 3-4 watery stools throughout the day. At this time diarrhea unspecified. Await stool studies. GI consult. Consider Lomotil. CT concerning for Mild cholecytitis Resolved. GI input noted. (2) CKD (chronic kidney disease) Current Visit: Yes Status: Acute Qualifiers: Chronic kidney disease stage: on chronic dialysis Qualified Code(s): N18.6 - End stage renal disease; Z99.2 - Dependence on renal dialysis Plan to address problem: Chronic kidney disease hemodialysis as per nephrology. (3) Hep C w/o coma, chronic Current Visit: Yes Status: Chronic (4) IDDM (insulin dependent diabetes mellitus) Current Visit: Yes Status: Chronic Plan to address problem: Patient insulin-dependent diabetes mellitus still uncontrolled, increase the 20 units of Lantus. add sliding scale (5) Peripheral neuropathy Current Visit: Yes Status: Chronic Qualifiers: Peripheral neuropathy type: polyneuropathy, unspecified Qualified Code(s): G62.9 - Polyneuropathy, unspecified Plan to address problem: Peripheral neuropathy stable.. I evaluated patient's medications to see what may be causing the dizziness throughout the day. Most likely etiology now would be Neurontin. Continue 900 mg 3 times a day was decreased yesterday. See how she responds to this. (6) Near syncope: Patient is a poor historian, never the less. will check orthostatic and also obtain PT/OT eval. Will also obtain a CT brain. UNABLE TO GO TO SNF DUE TO INSURANCE. (7) Depression: Denies HI OR SI. will recommend outpatient Psych eval. History Interval history: Patient seen and examined, this morning reports that she is dizzy again and unable to ambulate. Hospitalist Physical - Physical exam Narrative exam: General appearance: Present: no acute distress, well-nourished - EENT Eyes: Present: PERRL, EOM intact ENT: hearing intact, clear oral mucosa, dentition normal, oropharyngeal erythema - Neck Neck: Present: supple, normal ROM - Respiratory Respiratory: bilateral: CTA - Cardiovascular Rhythm: regular Heart Sounds: Present: S1 & S2 - Extremities Extremities: no ischemia, pulses intact, pulses symmetrical Peripheral Pulses: within normal limits - Abdominal General gastrointestinal: soft, non-tender, non-distended, normal bowel sounds, no absent bowel sounds, no hepatomegaly, no splenomegaly - Integumentary Integumentary: Present: clear, warm, dry - Psychiatric Psychiatric: appropriate mood/affect, intact judgment & insight, cooperative - Neurologic Neurologic: CNII-XII intact, lethargic - Constitutional Vitals: Temp Pulse Resp BP Pulse Ox 98.2 F 79 20 146/59 98 08/31/18 04:45 08/31/18 04:45 08/31/18 04:45 08/31/18 04:45 08/31/18 04:45 General appearance: Present: no acute distress, well-nourished Results - Labs CBC & Chem 7: 08/31/18 07:35 08/31/18 07:35 Labs: Laboratory Last Values WBC 8.6 K/mm3 (4.5-11.0) 08/31/18 07:35 RBC 2.87 M/mm3 (3.65-5.03) L 08/31/18 07:35 Hgb 8.7 gm/dl (10.1-14.3) L 08/31/18 07:35 Hct 26.0 % (30.3-42.9) L 08/31/18 07:35 MCV 91 fl (79-97) 08/31/18 07:35 MCH 30 pg (28-32) 08/31/18 07:35 MCHC 33 % (30-34) 08/31/18 07:35 RDW 16.2 % (13.2-15.2) H 08/31/18 07:35 Plt Count 235 K/mm3 (140-440) 08/31/18 07:35 Lymph % (Auto) 9.1 % (13.4-35.0) L 08/29/18 08:13 Barton % (Auto) 8.9 % (0.0-7.3) H 08/29/18 08:13 Eos % (Auto) 2.3 % (0.0-4.3) 08/29/18 08:13 Baso % (Auto) 1.3 % (0.0-1.8) 08/29/18 08:13 Lymph # 1.0 K/mm3 (1.2-5.4) L 08/29/18 08:13 Barton # 1.0 K/mm3 (0.0-0.8) H 08/29/18 08:13 Eos # 0.3 K/mm3 (0.0-0.4) 08/29/18 08:13 Baso # 0.1 K/mm3 (0.0-0.1) 08/29/18 08:13 Seg Neutrophils % 78.4 % (40.0-70.0) H 08/29/18 08:13 Seg Neutrophils # 9.1 K/mm3 (1.8-7.7) H 08/29/18 08:13 Sodium 136 mmol/L (137-145) L 08/31/18 07:35 Potassium 3.6 mmol/L (3.6-5.0) 08/31/18 07:35 Chloride 95.1 mmol/L (98-107) L 08/31/18 07:35 Carbon Dioxide 25 mmol/L (22-30) 08/31/18 07:35 Anion Gap 20 mmol/L 08/31/18 07:35 BUN 24 mg/dL (7-17) H 08/31/18 07:35 Creatinine 5.7 mg/dL (0.7-1.2) H 08/31/18 07:35 Estimated GFR 7 ml/min 08/31/18 07:35 BUN/Creatinine Ratio 4 % 08/31/18 07:35 Glucose 205 mg/dL (65-100) H 08/31/18 07:35 POC Glucose 203 (70-105) H 08/31/18 07:53 Hemoglobin A1c 7.5 % (4-6) H 08/28/18 01:04 Calcium 8.7 mg/dL (8.4-10.2) 08/31/18 07:35 Total Bilirubin 0.30 mg/dL (0.1-1.2) 08/29/18 08:13 AST 6 units/L (5-40) 08/29/18 08:13 ALT 6 units/L (7-56) L 08/29/18 08:13 Alkaline Phosphatase 74 units/L (35-129) 08/29/18 08:13 Total Protein 6.8 g/dL (6.3-8.2) 08/29/18 08:13 Albumin 3.3 g/dL (3.9-5) L 08/29/18 08:13 Albumin/Globulin Ratio 0.9 % 08/29/18 08:13 Hepatitis A IgM Ab Non-reactive (NonReactive) 08/27/18 12:59 Hep Bs Antigen Non-reactive (Negative) 08/27/18 12:59 Hep B Core IgM Ab Non-reactive (NonReactive) 08/27/18 12:59 Hepatitis C Antibody Reactive (NonReactive) A 08/27/18 12:59 Nutrition/Malnutrition Assess - Dietary Evaluation Nutrition/Malnutrition Findings: Nutrition Notes Start: 08/28/18 10:25 Freq: Status: Active Protocol: Document 08/28/18 10:26 LM (Rec: 08/28/18 11:33 LM [id number]) Co-Sign 08/28/18 10:26 LP Nutrition Notes Need for Assessment generated from: healthcare corporate account director Initial or Follow up Assessment Current Diagnosis CKD (stage V CKD) Diabetes Hypertension Other Pertinent Diagnosis Hep C, on HD Current Diet Renal Labs/Tests Na 136 BUN 23 Creat 4.6 BG 179 Pertinent Medications Lasix Lantus Height 5 ft 6 in Weight 87.2 kg [place] Body Weight (lbs) 130.0 BMI 31.0 Subjective/Other Information Consult for MST. Pt stated she has not been eating well due to having N/V/D for 3 weeks. Pt stated her N/V/D was due to previouslt having pnemonia and the flu. Pt siad she has noticed that she has been gradully losing weight since N /V/D started. Pt unaware of her UBW. Food preferences taken. Discussed nutrition for N/V. Burn Absent Trauma Absent GI Symptoms Nausea Vomiting Diarrhea #1 Nutrition Diagnosis Inadequate oral intake Etiology Nausea, vomitng, diarrhea As Evidenced by Signs and Symptoms Intakes less than 75% Is patient on ventilator? No Is Patient Ambulatory and/or Out of Bed Yes REE-([facility]-ambulatory/OOB) [ [id number] [id number]] Calculation Used for Recommendations [facility] Additional Notes Protein: 104-113 g (1.2-1.3 g/ kg) Fluids: 1-1.5 L/day Nutrition Intervention Change Diet Order: Continue Renal Goal #1 Meet at least 75% of energy and protein needs Goal #2 Diet toleance Anticipated Discharge Needs: Renal diet Follow-Up By: 08/31/18 Additional Comments F/U for intakes/ONS needs
--- NOTE | 2018-08-31 13:19 | Cat Scan Report ---
CT HEAD WITHOUT CONTRAST: HISTORY: Near syncope. TECHNIQUE: Sequential CT images without contrast. FINDINGS: Images obtained show bilateral prominence of the sulci and ventricles. There are no abnormal intra- or extra-axial blood or fluid collections. There are no focal masses or evidence of mass effect. The preciado white matter differentiation appears within normal limits. Regions of periventricular decreased attenuation are consistent with microangiopathic ischemic disease. The posterior fossa structures including the fourth ventricle, cerebellum, and brainstem appear normal. IMPRESSION: Evidence of atrophy and microangiopathic ischemic disease. No acute intracranial process noted.
[2018-08-31] MEDS: AMBIEN PO SCH (22:11)
[2018-08-31] MEDS: LANTUS SUB-Q SCH (22:13)
[2018-09-01 06:09] LABS: Hematocrit 23.4 % (30.3-42.9); Hemoglobin 8.1 gm/dl (10.1-14.3); Mean Corpuscular HGB Conc 35 % (30-34); Mean Corpuscular Volume 89 fl (79-97); Platelet Count 268 K/mm3 (140-440); Red Blood Count 2.64 M/mm3 (3.65-5.03); Red Cell Distribution Width 15.8 % (13.2-15.2)
[2018-09-01 06:48] LABS: Calcium 8.8 mg/dL (8.4-10.2)
[2018-09-01] MEDS: ZOFRAN ODT PO SCH ×2 (06:52→13:28)
[2018-09-01] MEDS: VANCOMYCIN PO PO SCH ×4 (06:52→18:10)
[2018-09-01] MEDS: HumaLOG SUB-Q SCH ×3 (08:43→17:44)
[2018-09-01] MEDS: NEURONTIN PO SCH ×2 (08:44→13:35)
--- NOTE | 2018-09-01 09:07 | Progress Note ---
Assessment and Plan Cultures: none A/P: 63 y/o female with history of DM, HCV follows Dr Babb ([place]), ESRD on HD, recurrentl UTIs, previous MSSA/GAS bacteremia and C diff colitis in Jul 2014, admitted on 08/27/201863 a week history of generalized weakness and diarrhea 4-6 times a day: Acute diarrhea, abdominal pain, N/V/D: currently resolved; unclear etiology, no septic picture on admission, likely viral vs recurrent C diff vs cholecystitis. Patient with history of C diff colitis in 2013. CT cholelithiasis and mild GB wall edema. Diarrhea resolved, started on vancomycin PO on 08/28/2018 Recently discharged from [facility] from 08/11-08/19/18 due to presumed pneumonia/influenza treated with tamiflu for 5 days. Influenza PCR 08/12/18 negative. Blood culture 08/11/2018 grew Corynebacterium sp felt to be a contaminant and repeat blood culture 08/13/2018 negative. Urine cx >100K normal skin aga. CXR shows patchy hilar infiltrates. DM: uncontrolled HCV: known for several years, follows Dr Babb GI med. Recs: Continue vancomycin PO 125 mg QID total 14 days for presumed recurrent C diff colitis, D5 of D14 Ok to discharge from ID standpoint Cristal Paulino NP [facility] M: [phone] O:[phone] Subjective Date of service: 09/01/18 Principal diagnosis: abdominal pain, diarrhea Interval history: Patient seen and examined. Denied generalized pain, SOB, fevers or rashes. Stated that she was feeling better today, no stools. Objective - Exam Narrative Exam: Constitutional: Alert, cooperative. in NAD Head, Ears, Nose: Normocephalic, atraumatic. External ears, nose normal Eyes: Conjunctivae/corneas clear. No icterus. No ptosis. Neck: Supple, no meningeal signs Oral: dentition poor no thrush Cardiovascular: RRR Respiratory: CTAB GI: Soft, non-tender; bowel sounds normal. No peritoneal signs Musculoskeletal: No pedal edema, no cyanosis. Skin: No rash or abscess. Hem/Lymphatic: No palpable cervical or supraclavicular nodes. No lymphangitis Psych: Mood ok. Affect normal Neurological: Awake, alert, oriented. - Constitutional Vitals: Vital Signs Temp Pulse Resp BP Pulse Ox 98.7 F 76 20 139/62 92 09/01/18 06:36 09/01/18 06:36 09/01/18 06:36 09/01/18 06:36 09/01/18 06:36 Temperature -Last 24 Hours Temperature 98.7 F Temperature 98.9 F Temperature 98.3 F Temperature 98.3 F - Labs CBC & Chem 7: 09/01/18 05:14 09/01/18 05:14 Labs: Abnormal lab results 08/31/18 08/31/18 08/31/18 Range/Units 11:52 17:46 21:42 RBC (3.65-5.03) M/mm3 Hgb (10.1-14.3) gm/dl Hct (30.3-42.9) % MCHC (30-34) % RDW (13.2-15.2) % Sodium (137-145) mmol/L Chloride (98-107) mmol/L BUN (7-17) mg/dL Creatinine (0.7-1.2) mg/dL Glucose (65-100) mg/dL POC Glucose 246 H 167 H 227 H (70-105) 09/01/18 09/01/18 09/01/18 Range/Units 05:14 05:14 08:20 RBC 2.64 L (3.65-5.03) M/mm3 Hgb 8.1 L (10.1-14.3) gm/dl Hct 23.4 L (30.3-42.9) % MCHC 35 H (30-34) % RDW 15.8 H (13.2-15.2) % Sodium 135 L (137-145) mmol/L Chloride 94.9 L (98-107) mmol/L BUN 30 H (7-17) mg/dL Creatinine 6.4 H (0.7-1.2) mg/dL Glucose 149 H (65-100) mg/dL POC Glucose 161 H (70-105)
[2018-09-01] MEDS: ZOLOFT PO SCH (10:00)
[2018-09-01] MEDS: NORVASC PO SCH ×2 (10:00→14:06)
[2018-09-01] MEDS: HEPARIN SUB-Q SCH (13:16)
[2018-09-01] MEDS: LASIX PO SCH (13:16)
[2018-09-01] MEDS: SODIUM CHLORIDE FLUSH SYRINGE 10 ML IV SCH (13:29)
[2018-09-01] MEDS: PEPCID PO SCH (13:29)
--- NOTE | 2018-09-01 13:48 | Discharge Summary ---
Providers - Providers Date of Admission: 08/28/18 15:14 Attending physician: PRITI DOLL MD 08/27/18 12:55 Consult to Physician [CONS] Routine Comment: NOTIFIED IN ER [id number] Consulting Provider: SHAWN FIELDS Physician Instructions: Reason For Exam: hd 08/28/18 17:04 Consult to Physician [CONS] Routine Comment: Consulting Provider: LUIS ANTONIO FRANKEL Physician Instructions: Reason For Exam: diarrhea 08/28/18 17:05 Consult to Physician [CONS] Routine Comment: Consulting Provider: EMIL CONNELL Physician Instructions: Reason For Exam: diarrhea 08/31/18 10:57 Occupational Therapy Evaluate and Treat [CONS] Routine Comment: Reason For Exam: ataxia Physical Therapy Evaluation and Treat [CONS] Routine Comment: Reason For Exam: ataxia Primary care physician: CRACKER SPRAYER Hospitalization Reason for admission: missed dialysis Condition: Serious Hospital course: 63 y/o female sent from Dialysis center for missing HD for 8 days, she states that she missed dialysis because she was very sick and having diarrhea.Patient is c/o sob and diarrhea, Sob is improved, she is having non stop watery diarrhea, >10 episodes per day. Patient on admission did not have any further diarrhea, CT was concerning for mild cholcystitis but no intervention was considered at this time due to lack of any abdominal pain. The patient resumed dialysis, She complained of lethargy and was recommeded to SNF for rehab purposes. (1) Diarrhea-Non infectious (2) Mild cholcystitis (3) Hep C w/o coma, chronic (4) IDDM (insulin dependent diabetes mellitus) (5) Peripheral neuropathy (6) Near syncope (7) Depression (8) ESRD Disposition: DC/TX-03 SNF W [facility] CERT Time spent for discharge: 35 mins Core Measure Documentation - Palliative Care Palliative Care/ Comfort Measures: Not Applicable - Core Measures Any of the following diagnoses?: none - VTE Discharge Requirements Deep Vein Thrombosis/Pulmonary Embolism Present on Admission: No Exam - Physical Exam Narrative exam: General appearance: Present: no acute distress, well-nourished - EENT Eyes: Present: PERRL, EOM intact ENT: hearing intact, clear oral mucosa, dentition normal, oropharyngeal erythema - Neck Neck: Present: supple, normal ROM - Respiratory Respiratory: bilateral: CTA - Cardiovascular Rhythm: regular Heart Sounds: Present: S1 & S2 - Extremities Extremities: no ischemia, pulses intact, pulses symmetrical Peripheral Pulses: within normal limits - Abdominal General gastrointestinal: soft, non-tender, non-distended, normal bowel sounds, no absent bowel sounds, no hepatomegaly, no splenomegaly - Integumentary Integumentary: Present: clear, warm, dry - Psychiatric Psychiatric: appropriate mood/affect, intact judgment & insight, cooperative - Neurologic Neurologic: CNII-XII intact, lethargic - Constitutional Vitals: Temp Pulse Resp BP Pulse Ox 98.3 F 70 18 133/64 92 09/01/18 09:15 09/01/18 12:30 09/01/18 09:15 09/01/18 12:30 09/01/18 06:36 Plan Activity: advance as tolerated, fall precautions Diet: renal Special Instructions: record daily weights, record daily BP diary Follow up with: MIRACLE FLYNN MD [Staff Physician] - 7 Days LUIS ANTONIO FRANKEL MD [Staff Physician] - 7 Days PRIMARY CARE, [Primary Care Provider] - 7 Days [facility] [Outside] - 7 Days Prescriptions: Gabapentin [Neurontin] 800 mg PO TID #90 capsule Vancomycin Po 125 mg PO Q6HR 9 Days oral.[email or web address]
--- NOTE | 2018-09-01 17:53 | Progress Note ---
Assessment and Plan Impression: * End stage renal disease * Diarrhea * Hep C virus * Hypertension * Type II DM * Anemia secondary to ESRD * Secondary hyperPTH * Medical noncompliance Plan: * Hemodialysis TTS schedule * UF as tolerated * GI recommendations noted * Dose medications for renal function * Epogen TIW prn * Renal diet Subjective Date of service: 09/01/18 Principal diagnosis: abdominal pain, diarrhea Objective - Vital Signs Vital signs: Vital Signs - 12hr 09/01/18 09/01/18 09/01/18 06:36 09:15 09:45 Temperature 98.7 F 98.3 F Pulse Rate 76 77 75 Respiratory 20 18 Rate Blood Pressure 139/62 155/66 156/70 O2 Sat by Pulse 92 Oximetry 09/01/18 09/01/18 09/01/18 10:00 10:15 10:30 Temperature Pulse Rate 77 75 75 Respiratory Rate Blood Pressure 154/65 152/69 143/64 O2 Sat by Pulse Oximetry 09/01/18 09/01/18 09/01/18 10:45 11:00 11:15 Temperature Pulse Rate 73 70 68 Respiratory Rate Blood Pressure 139/64 141/56 133/59 O2 Sat by Pulse Oximetry 09/01/18 09/01/18 09/01/18 11:30 11:45 12:00 Temperature Pulse Rate 68 71 73 Respiratory Rate Blood Pressure 141/62 144/64 153/58 O2 Sat by Pulse Oximetry 09/01/18 09/01/18 09/01/18 12:15 12:30 12:45 Temperature Pulse Rate 71 70 69 Respiratory Rate Blood Pressure 129/65 133/64 136/64 O2 Sat by Pulse Oximetry 09/01/18 09/01/18 13:00 13:55 Temperature 98.2 F 98.0 F Pulse Rate 70 79 Respiratory 18 20 Rate Blood Pressure 138/52 164/54 O2 Sat by Pulse 98 Oximetry - General Appearance General appearance: well-developed, well-nourished EENT: ATNC Respiratory: Present: Clear to Ascultation Cardiology: regular, S1S2 Gastrointestinal: normal, no tenderness, no distended Integumentary: warm and dry Neurologic: alert and oriented x3 Musculoskeletal: other (no edema) Psychiatric: paranoid ideation - Lab 09/01/18 05:14 09/01/18 05:14 Most recent lab results Calcium 8.8 mg/dL (8.4-10.2) 09/01/18 05:14 Medications & Allergies - Medications Allergies/Adverse Reactions: Allergies acetaminophen [From Lorcet (hydrocodone)] Allergy (Verified 09/06/14 04:14) Rash carbamazepine [From Tegretol] Allergy (Verified 09/06/14 04:14) Rash cefaclor [From Ceclor] Allergy (Verified 09/06/14 04:14) Rash cephalexin monohydrate [From Keflex] Allergy (Verified 09/06/14 04:14) Rash chlorpheniramine maleate [From Isoclor] Allergy (Verified 09/06/14 04:14) Rash codeine phosphate [From Isoclor] Allergy (Verified 09/06/14 04:14) Rash guaifenesin [From Isoclor] Allergy (Verified 09/06/14 04:14) Rash hydrocodone Allergy (Verified 09/06/14 04:14) Rash hydrocodone bitartrate [From Lorcet (hydrocodone)] Allergy (Verified 09/06/14 04:14) Rash indomethacin [From Indocin] Allergy (Verified 09/06/14 04:14) Rash indomethacin sodium [From Indocin] Allergy (Verified 09/06/14 04:14) Rash ofloxacin [From Floxin] Allergy (Verified 09/06/14 04:14) Rash oxycodone HCl [From Percocet] Allergy (Verified 09/06/14 04:14) Rash Penicillins Allergy (Verified 09/06/14 04:14) Rash promethazine HCl [From Phenergan] Allergy (Verified 09/06/14 04:14) Rash pseudoephedrine Allergy (Verified 09/06/14 04:14) Rash pseudoephedrine HCl [From Isoclor] Allergy (Verified 09/06/14 04:14) Rash Sulfa (Sulfonamide Antibiotics) Allergy (Verified 09/06/14 04:14) Rash sulfamethoxazole [From Bactrim] Allergy (Verified 09/06/14 04:14) Rash tetracycline Allergy (Verified 09/06/14 04:14) Rash tetracycline HCl [From Sumycin] Allergy (Verified 09/06/14 04:14) Rash trimethoprim [From Bactrim] Allergy (Verified 09/06/14 04:14) Rash valacyclovir HCl [From Valtrex] Allergy (Verified 09/06/14 04:14) Rash Home Medications: Home Medications Medication Instructions Recorded Confirmed Last Taken Type Insulin Aspart [NovoLOG Flexpen] 0 units SUB-Q DAILY 09/09/14 08/27/18 08/26/18 History Insulin Detemir [Levemir Flextouch] 0 units SUB-Q HS 09/09/14 08/27/18 08/26/18 History AtorvaSTATin [Lipitor] 20 mg PO QHS 08/27/18 08/27/18 08/26/18 History Furosemide [Lasix TAB] 20 mg PO QDAY 08/27/18 08/27/18 08/26/18 History Ondansetron [Zofran ODT TAB] 4 mg PO Q8HR 08/27/18 08/27/18 08/26/18 History Pantoprazole [Protonix TAB] 40 mg PO QDAY 08/27/18 08/27/18 08/26/18 History Sertraline [Zoloft] 50 mg PO QDAY 08/27/18 08/27/18 08/26/18 History Zolpidem [Ambien] 10 mg PO QHS 08/27/18 08/27/18 08/26/18 History amLODIPine [Norvasc] 5 mg PO DAILY 08/27/18 08/27/18 08/26/18 History Gabapentin [Neurontin] 800 mg PO TID #90 capsule 09/01/18 Unknown Rx Vancomycin Po 125 mg PO Q6HR 9 Days oral.liqd 09/01/18 Unknown Rx Active Medications: Generic Name Dose Route Start Last Admin Trade Name Freq PRN Reason Stop Dose Admin Acetaminophen 650 mg 08/28/18 00:31 08/28/18 02:54 Tylenol PO 650 mg Q4H PRN Administration Pain MILD(1-3)/Fever >100.5/TAMEZ Amlodipine Besylate 5 mg 08/28/18 10:00 09/01/18 14:06 Norvasc PO 5 mg DAILY FOSTER Administration Atorvastatin Calcium 20 mg 08/28/18 22:00 08/31/18 22:12 Lipitor PO 20 mg QHS FOSTER Administration Dextrose 50 ml 08/28/18 14:24 D50w (25gm) Syringe IV PRN PRN Hypoglycemia Famotidine 20 mg 08/28/18 10:00 09/01/18 13:29 Pepcid PO 20 mg QAM FOSTER Administration Furosemide 20 mg 08/28/18 10:00 09/01/18 13:16 Lasix PO Not Given QDAY FOSTER Gabapentin 800 mg 08/29/18 20:00 09/01/18 13:35 Neurontin PO 800 mg TID FOSTER Administration Heparin Sodium (Porcine) 5,000 unit 08/28/18 10:00 09/01/18 13:16 Heparin SUB-Q Not Given Q12HR FOSTER Hydralazine HCl 10 mg 08/28/18 14:25 Apresoline IV Q4HR PRN BP >160/100 Hydromorphone HCl 0.5 mg 08/28/18 00:31 Dilaudid IV Q3H PRN Pain , Severe (7-10) Sodium Chloride 100 mls @ 999 mls/hr 08/29/18 10:34 Nacl 0.9% IV ANJELICA PRN Hypotension Insulin Glargine 20 units 08/30/18 22:00 08/31/18 22:13 Lantus SUB-Q 20 units HS FOSTER Administration Insulin Human Lispro 0 unit 08/28/18 16:30 09/01/18 17:44 Humalog SUB-Q 3 unit ACHS FOSTER Administration Protocol Ondansetron HCl 4 mg 08/28/18 01:00 09/01/18 13:28 Zofran Odt PO 4 mg Q8HR FOSTER Administration Sertraline HCl 50 mg 08/28/18 10:00 09/01/18 10:00 Zoloft PO Not Given QDAY FOSTER Sodium Chloride 10 ml 08/28/18 10:00 09/01/18 13:29 Sodium Chloride Flush Syringe 10 Ml IV 10 ml BID FOSTER Administration Sodium Chloride 10 ml 08/28/18 00:31 Sodium Chloride Flush Syringe 10 Ml IV PRN PRN LINE FLUSH Vancomycin HCl 125 mg 08/28/18 18:00 09/01/18 13:16 Vancomycin Po PO 09/11/18 12:01 Not Given Q6HR FOSTER Zolpidem Tartrate 10 mg 08/28/18 22:00 08/31/18 22:11 Ambien PO 10 mg QHS FOTSER Administration
[2018-09-01 18:11] VITALS: BP 140/42
== END 2018-09-01 19:00 | DRG 291 ==
LOC: ED 10:12 → 3A 13:32 → OBSVTOIN 08-28 15:14
PROVIDERS: ADMIT Internal Medicine; ATTEND Internal Medicine
PROC: 5A1D70Z Performance of Urinary Filtration, Intermittent, Less than 6 Hours Per Day (ICD-10-PCS; principal; 2018-08-27)
PROC: 5A1D70Z Performance of Urinary Filtration, Intermittent, Less than 6 Hours Per Day (ICD-10-PCS; 2018-08-29)
PROC: 5A1D70Z Performance of Urinary Filtration, Intermittent, Less than 6 Hours Per Day (ICD-10-PCS; 2018-09-01)
DX: I13.2 Hypertensive heart and chronic kidney disease with heart failure and with stage 5 chronic kidney disease, or end stage renal disease (principal); I50.43 Acute on chronic combined systolic (congestive) and diastolic (congestive) heart failure; N18.6 End stage renal disease; N25.81 Secondary hyperparathyroidism of renal origin; R19.7 Diarrhea, unspecified; B18.2 Chronic viral hepatitis C; E87.70 Fluid overload, unspecified; E11.22 Type 2 diabetes mellitus with diabetic chronic kidney disease; E78.2 Mixed hyperlipidemia; E11.42 Type 2 diabetes mellitus with diabetic polyneuropathy; E11.65 Type 2 diabetes mellitus with hyperglycemia; D63.1 Anemia in chronic kidney disease; K21.9 Gastro-esophageal reflux disease without esophagitis; F32.9 Major depressive disorder, single episode, unspecified; G43.909 Migraine, unspecified, not intractable, without status migrainosus; Z79.4 Long term (current) use of insulin; Z79.899 Other long term (current) drug therapy; Z88.6 Allergy status to analgesic agent; Z88.8 Allergy status to other drugs, medicaments and biological substances; Z88.1 Allergy status to other antibiotic agents; Z88.5 Allergy status to narcotic agent; Z88.2 Allergy status to sulfonamides; Z91.15 Patient's noncompliance with renal dialysis; Z71.89 Other specified counseling; Z99.2 Dependence on renal dialysis; Z86.718 Personal history of other venous thrombosis and embolism
CPT/HCPCS: 36415; 70450; 74176; 80048; 80053; 80074; 82962; 83036; 85025; 85027; 93005; 93010; G0378; A9270-GY; J1644; J1815; J3370; J7030; Q0162

== ENCOUNTER 2019-02-16 10:35 | Inpatient (IN) | payer MEDICARE ==
[2019-02-16] MEDS ORDERED: APRESOLINE IV ONE (10:53)
--- NOTE | 2019-02-16 10:56 | Emergency Department Report ---
HPI - General Chief Complaint: High BP Time Seen by Provider: 02/16/19 10:43 - HPI HPI: 64-year-old female presents to the emergency department from her dialysis center at [facility] for evaluation after missing her last 2 dialysis sessions. She is usually Friday//Friday dialysis does not had it since February 09. [place] was going to be back on Friday and only missed one dialysis session. When she went in to get dialysis today the patient was told that her blood pressure was too high and they needed some blood work done before they could dialyze her. She denies any shortness of breath, chest pain, edema, fever, or any other complaints at this time and says that she "feels great." She also has a past medical history of hypertension, diabetes, previous blood clots. She has not taken any of her medications this morning. She is unable to tell me the name of her fisher dip net but says "it is whoever works at the dialysis center." ED Past Medical Hx - Past Medical History Hx Hypertension: Yes Hx Diabetes: Yes Hx Renal Disease: Yes Hx Headaches / Migraines: Yes Additional medical history: blood clots - Surgical History Additional Surgical History: fibroid removed. blood clot removed on left leg - Social History Smoking Status: Former Smoker Substance Use Type: None - Medications Home Medications: Home Medications Medication Instructions Recorded Confirmed Last Taken Type Insulin Aspart [NovoLOG Flexpen] 0 units SUB-Q DAILY 09/09/14 08/27/18 08/26/18 History Insulin Detemir [Levemir Flextouch] 0 units SUB-Q HS 09/09/14 08/27/18 08/26/18 History AtorvaSTATin [Lipitor] 20 mg PO QHS 08/27/18 08/27/18 08/26/18 History Furosemide [Lasix TAB] 20 mg PO QDAY 08/27/18 08/27/18 08/26/18 History Ondansetron [Zofran ODT TAB] 4 mg PO Q8HR 08/27/18 08/27/18 08/26/18 History Pantoprazole [Protonix TAB] 40 mg PO QDAY 08/27/18 08/27/18 08/26/18 History Sertraline [Zoloft] 50 mg PO QDAY 08/27/18 08/27/18 08/26/18 History Zolpidem [Ambien] 10 mg PO QHS 08/27/18 08/27/18 08/26/18 History amLODIPine [Norvasc] 5 mg PO DAILY 08/27/18 08/27/18 08/26/18 History Gabapentin [Neurontin] 800 mg PO TID #90 capsule 09/01/18 Unknown Rx Vancomycin Po 125 mg PO Q6HR 9 Days oral.liqd 09/01/18 Unknown Rx ED Review of Systems ROS: Stated complaint: NEEDS DIALYSIS Other details as noted in HPI Comment: All other systems reviewed and negative Constitutional: denies: chills, fever Eyes: denies: eye pain, vision change ENT: denies: ear pain, throat pain Respiratory: denies: cough, shortness of breath Cardiovascular: denies: chest pain, palpitations Gastrointestinal: denies: abdominal pain, vomiting Genitourinary: denies: dysuria, discharge Musculoskeletal: denies: back pain, arthralgia Skin: denies: rash, lesions Neurological: denies: headache, weakness Physical Exam - Physical Exam Vital Signs: Vital Signs 02/16/19 10:36 Temperature 98.2 F Pulse Rate 67 Respiratory 14 Rate Blood Pressure 215/65 [Left] O2 Sat by Pulse 95 Oximetry Physical Exam: GENERAL: The patient is well-developed well-nourished. HENT: Normocephalic. Atraumatic. Patient has moist mucous membranes. EYES: Extraocular motions are intact. NECK: Supple. Trachea is midline. CHEST/LUNGS: Clear to auscultation. There is no respiratory distress noted. HEART/CARDIOVASCULAR: Regular. There is no tachycardia. There is no murmur. ABDOMEN: Abdomen is soft, nontender. Patient has normal bowel sounds. There is no abdominal distention. SKIN: Skin is warm and dry. NEURO: The patient is awake, alert, and oriented. The patient is cooperative. The patient has no focal neurologic deficits. The patient has normal speech. MUSCULOSKELETAL: There is no tenderness or deformity. There is no evidence of acute injury. Patent left upper extremity dialysis access with palpable thrill and audible hum. ED Course Vital Signs 02/16/19 10:36 Temperature 98.2 F Pulse Rate 67 Respiratory 14 Rate Blood Pressure 215/65 [Left] O2 Sat by Pulse 95 Oximetry - Consultations Consultation #1: I spoke with Lisa, on for Dr. Escalante, who says that they are going to get the patient dialysis today and asked for the patient to be admitted to the hospitalist service. 02/16/19 12:30 ED Medical Decision Making - Lab Data Result diagrams: 02/16/19 10:59 02/16/19 10:59 - Medical Decision Making This patient presents to the emergency department to be evaluated for dialysis as she missed her last 2 dialysis sessions. She does have hyperkalemia with a potassium of 6.2. She has no complaints of any shortness of breath or chest pain. Her blood pressure is coming down with some hydralazine. Spoke with her fisher dip net who will get her dialysis today. Patient accepted for admission by the hospitalist, Dr. Ingram. - Differential Diagnosis hyperkalemia, volume overload, dysrhythmia Critical Care Time: No Critical care attestation.: If time is entered above; I have spent that time in minutes in the direct care of this critically ill patient, excluding procedure time. ED Disposition Clinical Impression: ESRD needing dialysis, Acute hyperkalemia, Hypertensive urgency Disposition: OP ADMIT IP TO THIS HOSP Is pt being admited?: Yes Condition: Fair Referrals: ABHISHEK MURILLO MD [Primary Care Provider] - 3-5 Days Time of Disposition: 12:52
[2019-02-16 11:22] LABS: Basophils # (Auto) 0.1 K/mm3 (0.0-0.1); Basophils % (Auto) 1.3 % (0.0-1.8); Eosinophils # (Auto) 0.2 K/mm3 (0.0-0.4); Eosinophils % (Auto) 2.2 % (0.0-4.3); Hematocrit 32.7 % (30.3-42.9); Hemoglobin 11.2 gm/dl (10.1-14.3); Lymphocytes # (Auto) 1.2 K/mm3 (1.2-5.4); Lymphocytes % (Auto) 15.8 % (13.4-35.0); Mean Corpuscular HGB Conc 34 % (30-34); Mean Corpuscular Volume 93 fl (79-97); Monocytes # (Auto) 0.4 K/mm3 (0.0-0.8); Monocytes % (Auto) 5.2 % (0.0-7.3); Platelet Count 250 K/mm3 (140-440); Red Blood Count 3.53 M/mm3 (3.65-5.03)
[2019-02-16 11:33] LABS: Calcium 9.5 mg/dL (8.4-10.2)
--- NOTE | 2019-02-16 12:29 | History and Physical Report ---
History of Present Illness Chief complaint: I feel tired, and my blood pressure is real high. History of present illness: 64 YO Female with ESRD on HD (T,R,Sa), HTN, DM, Migraine, DVT not currently on therapeutic anticoagulation presents to ED for evaluation. Pt reports noncompliance with dialysis and was last dialyzed on 1 week ago. Pt reports feeling tired, but also states that she feels like this when she does not get her dialysis. Pt reports going to her dialysis center for routine dialysis as was found to have hypertension with SBP>200. EMS notified and he patient was found to be hypertensive and transported to [facility]. Pt seen and evaluated in ED and fonund to have ESRD needing dialysis complicated by fluid overload, and hypertensive urgency. Pt treated with antihypertensive therapy with improvement in symptoms. Nephrology consulted for urgent dialysis. Pt admitted to [facility] unit with remote telemetry. Pt denies fever, chills, CP, Palpitations, Trauma, productive cough, headache, dizziness, syncope, or recent ill contacts. Prior admission on 08/27/18 reviewed. All listed medication reconciled at time of admission. Past History Past Medical History: diabetes, ESRD Past Surgical History: Other (Fibroid Excisison) Social history: single. denies: smoking, alcohol abuse, prescription drug abuse Family history: diabetes, hypertension Medications and Allergies Allergies Allergy/AdvReac Type Severity Reaction Status Date / Time acetaminophen Allergy Rash Verified 09/06/14 04:14 [From Lorcet (hydrocodone)] carbamazepine [From Tegretol] Allergy Rash Verified 09/06/14 04:14 cefaclor [From Ceclor] Allergy Rash Verified 09/06/14 04:14 cephalexin monohydrate Allergy Rash Verified 09/06/14 04:14 [From Keflex] chlorpheniramine maleate Allergy Rash Verified 09/06/14 04:14 [From Isoclor] codeine phosphate Allergy Rash Verified 09/06/14 04:14 [From Isoclor] guaifenesin [From Isoclor] Allergy Rash Verified 09/06/14 04:14 hydrocodone Allergy Rash Verified 09/06/14 04:14 hydrocodone bitartrate Allergy Rash Verified 09/06/14 04:14 [From Lorcet (hydrocodone)] indomethacin [From Indocin] Allergy Rash Verified 09/06/14 04:14 indomethacin sodium Allergy Rash Verified 09/06/14 04:14 [From Indocin] ofloxacin [From Floxin] Allergy Rash Verified 09/06/14 04:14 oxycodone HCl [From Percocet] Allergy Rash Verified 09/06/14 04:14 Penicillins Allergy Rash Verified 09/06/14 04:14 promethazine HCl Allergy Rash Verified 09/06/14 04:14 [From Phenergan] pseudoephedrine Allergy Rash Verified 09/06/14 04:14 pseudoephedrine HCl Allergy Rash Verified 09/06/14 04:14 [From Isoclor] Sulfa (Sulfonamide Allergy Rash Verified 09/06/14 04:14 Antibiotics) sulfamethoxazole Allergy Rash Verified 09/06/14 04:14 [From Bactrim] tetracycline Allergy Rash Verified 09/06/14 04:14 tetracycline HCl Allergy Rash Verified 09/06/14 04:14 [From Sumycin] trimethoprim [From Bactrim] Allergy Rash Verified 09/06/14 04:14 valacyclovir HCl Allergy Rash Verified 09/06/14 04:14 [From Valtrex] Home Medications Medication Instructions Recorded Confirmed Last Taken Type Insulin Aspart [NovoLOG Flexpen] 0 units SUB-Q DAILY 09/09/14 08/27/18 08/26/18 History Insulin Detemir [Levemir Flextouch] 0 units SUB-Q HS 09/09/14 08/27/18 08/26/18 History AtorvaSTATin [Lipitor] 20 mg PO QHS 08/27/18 08/27/18 08/26/18 History Furosemide [Lasix TAB] 20 mg PO QDAY 08/27/18 08/27/18 08/26/18 History Ondansetron [Zofran ODT TAB] 4 mg PO Q8HR 08/27/18 08/27/18 08/26/18 History Pantoprazole [Protonix TAB] 40 mg PO QDAY 08/27/18 08/27/18 08/26/18 History Sertraline [Zoloft] 50 mg PO QDAY 08/27/18 08/27/18 08/26/18 History Zolpidem [Ambien] 10 mg PO QHS 08/27/18 08/27/18 08/26/18 History amLODIPine [Norvasc] 5 mg PO DAILY 08/27/18 08/27/18 08/26/18 History Gabapentin [Neurontin] 800 mg PO TID #90 capsule 09/01/18 Unknown Rx Vancomycin Po 125 mg PO Q6HR 9 Days oral.liqd 09/01/18 Unknown Rx Review of Systems Constitutional: fatigue, no weight loss, no weight gain, no fever, no chills Ears, nose, mouth and throat: no ear pain, no ear discharge, no tinnitis, no decreased hearing, no nose pain Breasts: no change in shape, no swelling, no mass Cardiovascular: no chest pain, no orthopnea, no palpitations, no rapid/irregular heart beat, no edema, no syncope Respiratory: no cough, no cough with sputum, no excessive sputum, no hemoptysis, no shortness of breath Gastrointestinal: no abdominal pain, no nausea, no vomiting, no diarrhea, no constipation Genitourinary Female: no pelvic pain, no flank pain, no menorrhagia, no dysuria Rectal: no pain, no incontinence, no bleeding Musculoskeletal: no neck stiffness, no neck pain, no shooting arm pain, no arm numbness/tingling, no low back pain, no leg numbness/tingling Integumentary: no rash, no redness, no sores, no wounds Neurological: no paralysis, no weakness, no parathesias, no numbness, no tingling, no seizures Psychiatric: no anxiety, no memory loss, no change in sleep habits, no sleep disturbances, no insomnia Endocrine: no cold intolerance, no heat intolerance, no polyphagia, no excessive thirst, no polydipsia, no nocturia Hematologic/Lymphatic: no easy bruising, no easy bleeding Allergic/Immunologic: no urticaria, no allergic rhinitis, no wheezing Exam - Constitutional Vitals: Temp Pulse Resp BP Pulse Ox 98.4 F 67 14 180/62 97 02/16/19 10:59 02/16/19 10:59 02/16/19 11:01 02/16/19 10:59 02/16/19 10:59 General appearance: Present: mild distress - EENT Eyes: Present: PERRL ENT: hearing intact, clear oral mucosa - Neck Neck: Present: supple, normal ROM - Respiratory Respiratory effort: normal Respiratory: bilateral: CTA - Cardiovascular Heart Sounds: Present: S1 & S2. Absent: rub, click - Extremities Extremities: pulses symmetrical, No edema Peripheral Pulses: within normal limits - Abdominal General gastrointestinal: Present: soft, non-tender, non-distended, normal bowel sounds Female genitourinary: Present: normal - Integumentary Integumentary: Present: clear, warm, dry - Musculoskeletal Musculoskeletal: gait normal, strength equal bilaterally - Psychiatric Psychiatric: appropriate mood/affect, intact judgment & insight - Neurologic Neurologic: CNII-XII intact, moves all extremities Results - Labs CBC & Chem 7: 02/16/19 10:59 02/16/19 10:59 Labs: Abnormal lab results 02/16/19 02/16/19 Range/Units 10:59 10:59 RBC 3.53 L (3.65-5.03) M/mm3 RDW 19.0 H (13.2-15.2) % Seg Neutrophils % 75.5 H (40.0-70.0) % Sodium 133 L (137-145) mmol/L Potassium 6.2 H* (3.6-5.0) mmol/L Carbon Dioxide 17 L (22-30) mmol/L BUN 79 H (7-17) mg/dL Creatinine 8.3 H (0.7-1.2) mg/dL Glucose 251 H (65-100) mg/dL Assessment and Plan - Patient Problems (1) ESRD needing dialysis Current Visit: Yes Status: Acute Plan to address problem: Nephrology consulted in ED for urgent dialysis, strict I/O, renal diet, monitor uop q shift, daily weight, avoid nephrotoxic agents (2) Hypertensive urgency Current Visit: Yes Status: Acute Plan to address problem: Monitor BP q shift, IV hydralazine prn for SBP >155, urgent dialysis (3) Diabetes Current Visit: Yes Status: Acute Plan to address problem: ADA diet, insulin, accu check, hypoglycemia protocol (4) Acidosis Current Visit: Yes Status: Acute Plan to address problem: Urgent dialysis, repeat bmp in AM. (5) Migraine Current Visit: Yes Status: Acute Qualifiers: Migraine type: without aura Plan to address problem: supportive care, pain control, (6) Obesity (BMI 30.0-34.9) Current Visit: Yes Status: Acute Plan to address problem: Balanced diet, increased physical activity at discharge, +15 minutes dedicated to patient counseling. (7) DVT prophylaxis Current Visit: No Status: Acute Plan to address problem: SCD to BLE while in bed, Pt ambulatory
[2019-02-16] MEDS ORDERED: SODIUM CHLORIDE FLUSH SYRINGE 10 ML IV PRN (12:31)
[2019-02-16] MEDS ORDERED: TYLENOL PO PRN (12:31)
[2019-02-16] MEDS ORDERED: PROVENTIL IH PRN (12:31)
[2019-02-16] MEDS ORDERED: ZOFRAN IV PRN (12:31)
[2019-02-16] MEDS ORDERED: NACL 0.9% 100 ML IV PRN (13:33)
[2019-02-16] MEDS ORDERED: CALCIUM GLUCONATE 1,000 MG in NACL 0.9% 100 ML IV ONE (14:25)
[2019-02-16] MEDS ORDERED: NEURONTIN ONE (15:24)
[2019-02-16] MEDS ORDERED: ZOFRAN ODT ONE (15:24)
[2019-02-16] MEDS: ZOFRAN ODT PO SCH ×2 (15:48→22:05)
[2019-02-16] MEDS: NEURONTIN PO SCH ×2 (15:48→22:05)
--- NOTE | 2019-02-16 16:21 | Consultation ---
History of Present Illness - Reason for Consult Consult date: 02/16/19 end stage renal disease Requesting physician: CATRACHITA GR - History of Present Illness 64 YO Female with ESRD on HD (T,R,Sa), HTN, DM, Migraine, DVT not currently on therapeutic anticoagulation presents to ED for evaluation. Pt reports noncompliance with dialysis and was last dialyzed on 1 week ago. Pt reports feeling tired, but also states that she feels like this when she does not get her dialysis. Pt reports going to her dialysis center for routine dialysis as was found to have hypertension with SBP>200. EMS notified and he patient was found to be hypertensive and transported to [facility]. Pt seen and evaluated in ED and fonund to have ESRD needing dialysis complicated by fluid overload, and hypertensive urgency. Pt treated with antihypertensive therapy with improvement in symptoms. Pt admitted to [facility] unit with remote telemetry. Pt denies fever, chills, CP, Palpitations, Trauma, productive cough, headache, dizziness, syncope, or recent ill contacts. Patient seen in the dialysis room. Dialysis is being initiated. Patient does complain of some nausea but no vomiting. Past History Past Medical History: diabetes, ESRD Past Surgical History: Other (Fibroid Excisison) Social history: single. denies: smoking, alcohol abuse, prescription drug abuse Family history: diabetes, hypertension Medications and Allergies Allergies Allergy/AdvReac Type Severity Reaction Status Date / Time acetaminophen Allergy Rash Verified 09/06/14 04:14 [From Lorcet (hydrocodone)] carbamazepine [From Tegretol] Allergy Rash Verified 09/06/14 04:14 cefaclor [From Ceclor] Allergy Rash Verified 09/06/14 04:14 cephalexin monohydrate Allergy Rash Verified 09/06/14 04:14 [From Keflex] chlorpheniramine maleate Allergy Rash Verified 09/06/14 04:14 [From Isoclor] codeine phosphate Allergy Rash Verified 09/06/14 04:14 [From Isoclor] guaifenesin [From Isoclor] Allergy Rash Verified 09/06/14 04:14 hydrocodone Allergy Rash Verified 09/06/14 04:14 hydrocodone bitartrate Allergy Rash Verified 09/06/14 04:14 [From Lorcet (hydrocodone)] indomethacin [From Indocin] Allergy Rash Verified 09/06/14 04:14 indomethacin sodium Allergy Rash Verified 09/06/14 04:14 [From Indocin] ofloxacin [From Floxin] Allergy Rash Verified 09/06/14 04:14 oxycodone HCl [From Percocet] Allergy Rash Verified 09/06/14 04:14 Penicillins Allergy Rash Verified 09/06/14 04:14 promethazine HCl Allergy Rash Verified 09/06/14 04:14 [From Phenergan] pseudoephedrine Allergy Rash Verified 09/06/14 04:14 pseudoephedrine HCl Allergy Rash Verified 09/06/14 04:14 [From Isoclor] Sulfa (Sulfonamide Allergy Rash Verified 09/06/14 04:14 Antibiotics) sulfamethoxazole Allergy Rash Verified 09/06/14 04:14 [From Bactrim] tetracycline Allergy Rash Verified 09/06/14 04:14 tetracycline HCl Allergy Rash Verified 09/06/14 04:14 [From Sumycin] trimethoprim [From Bactrim] Allergy Rash Verified 09/06/14 04:14 valacyclovir HCl Allergy Rash Verified 09/06/14 04:14 [From Valtrex] Home Medications Medication Instructions Recorded Confirmed Last Taken Type Insulin Detemir [Levemir Flextouch] 38 units SUB-Q HS 09/09/14 02/16/19 08/26/18 History Zolpidem [Ambien] 10 mg PO QHS 08/27/18 02/16/19 08/26/18 History Gabapentin [Neurontin] 800 mg PO TID #90 capsule 09/01/18 02/16/19 Unknown Rx Insulin Lispro [Humalog 100 33 units SQ AC 02/16/19 02/16/19 Unknown History UNITS/ML Kwikpen] Active Meds: Active Medications Acetaminophen (Tylenol) 650 mg PO Q4H PRN PRN Reason: Pain MILD(1-3)/Fever >100.5/TAMEZ Albuterol (Proventil) 2.5 mg IH Q4HRT PRN PRN Reason: Shortness Of Breath Atorvastatin Calcium (Lipitor) 20 mg PO QHS FOSTER Furosemide (Lasix) 20 mg PO QDAY FOSTER Gabapentin (Neurontin) 800 mg PO TID [facility] Last Admin: 02/16/19 15:48 Dose: 800 mg Documented by: Sodium Chloride (Nacl 0.9%) 100 mls @ 999 mls/hr IV ANJELICA PRN PRN Reason: Hypotension Ondansetron HCl (Zofran) 4 mg IV Q8H PRN PRN Reason: Nausea And Vomiting Ondansetron HCl (Zofran Odt) 4 mg PO Q8HR [facility] Last Admin: 02/16/19 15:48 Dose: 4 mg Documented by: Pantoprazole Sodium (Protonix) 40 mg PO QDAY [facility] Sertraline HCl (Zoloft) 50 mg PO QDAY [facility] Sodium Chloride (Sodium Chloride Flush Syringe 10 Ml) 10 ml IV BID [facility] Sodium Chloride (Sodium Chloride Flush Syringe 10 Ml) 10 ml IV PRN PRN PRN Reason: LINE FLUSH Sodium Polystyrene Sulfonate (Kionex) 15 gm PO QDAY [facility] Zolpidem Tartrate (Ambien) 10 mg PO QHS [facility] Review of Systems All systems: negative (negative except as noted above) Exam - Vital Signs Vital signs: Vital Signs Temp Pulse Resp BP Pulse Ox 98.2 F 67 14 215/65 95 02/16/19 10:36 02/16/19 10:36 02/16/19 10:36 02/16/19 10:36 02/16/19 10:36 - General Appearance General appearance: well-developed, well-nourished, appears stated age EENT: PERRL, mucous membranes moist Neck: Present: neck supple, trachea midline. Absent: JVD/HJR, Masses Respiratory: Clear to Ascultation, Decreased Breath Sounds (at the bases) Heart: regular, normal heart rate, S1S2, no murmurs Gastrointestinal: Present: normal, normoactive bowel sounds Integumentary: no rash, other (1+ edema. AV fistula in her left upper arm. Being cannulated for dialysis) Results - Lab Results 02/16/19 10:59 02/16/19 10:59 Most recent lab results Calcium 9.5 mg/dL (8.4-10.2) 02/16/19 10:59 Assessment and Plan Impression * End-stage renal disease on maintenance hemodialysis * Hyperkalemia * Accelerated hypertension * Noncompliance * Diabetes * Obesity * History of DVT Recommendations * Urgent hemodialysis being initiated * Hopefully her hyperkalemia will be corrected. Hopefully her blood pressure will also improve with dialysis * Remove fluid as tolerated with dialysis * Hold epogen for now until better blood pressure control * Adjust diet and meds for ESRD state * No IV, BP of any puncture in her access arm * Avoid nephrotoxins * Repeat her chemistries tomorrow and decide about additional dialysis treatment * She undergoes hemodialysis at [facility] on TTS schedule * Thank you very much for the consultation. Shall follow along with you
[2019-02-16] MEDS: KIONEX PO SCH (16:39)
[2019-02-16] MEDS ORDERED: APRESOLINE IV PRN (20:41)
[2019-02-16] MEDS: AMBIEN PO SCH (22:05)
[2019-02-16] MEDS: SODIUM CHLORIDE FLUSH SYRINGE 10 ML IV SCH (22:06)
[2019-02-17] MEDS: ZOFRAN ODT PO SCH ×3 (05:19→22:27)
[2019-02-17] MEDS: NEURONTIN PO SCH ×3 (08:45→21:00)
[2019-02-17] MEDS: PROTONIX PO SCH (09:05)
[2019-02-17] MEDS: ZOLOFT PO SCH (09:05)
[2019-02-17] MEDS: LASIX PO SCH ×2 (09:05→09:14)
[2019-02-17] MEDS: SODIUM CHLORIDE FLUSH SYRINGE 10 ML IV SCH ×2 (09:05→22:29)
[2019-02-17] MEDS: KIONEX PO SCH ×2 (09:06→09:12)
[2019-02-17] MEDS ORDERED: NACL 0.9% 100 ML IV PRN ×2 (09:53→10:51)
--- NOTE | 2019-02-17 10:05 | Progress Note ---
Assessment and Plan Impression * End-stage renal disease on maintenance hemodialysis * Hyperkalemia * Accelerated hypertension * Noncompliance * Diabetes * Obesity * History of DVT Recommendations * Patient had uneventful hemodialysis yesterday. * Her hyperkalemia is better. However serum potassium still high normal at 5.2. She is clinically still volume overloaded. * Arrange for extra dialysis treatment for today * Remove fluid as tolerated with dialysis * Hold epogen for now until better blood pressure control * Adjust diet and meds for ESRD state * No IV, BP of any puncture in her access arm * Avoid nephrotoxins * She undergoes hemodialysis at [facility] on TTS schedule Subjective Date of service: 02/17/19 Interval history: Patient is comfortable today. Shortness of breath is better. Denies any nausea or vomiting. Objective - Vital Signs Vital signs: Vital Signs - 12hr 02/16/19 02/17/19 02/17/19 22:06 00:27 02:36 Temperature 98.7 F Pulse Rate 75 Respiratory 18 18 Rate Blood Pressure 204/59 142/57 Blood Pressure [Right] O2 Sat by Pulse 94 100 Oximetry 02/17/19 02/17/19 07:00 08:51 Temperature 98.2 F Pulse Rate 62 Respiratory 20 20 Rate Blood Pressure Blood Pressure 179/58 [Right] O2 Sat by Pulse 96 96 Oximetry - General Appearance General appearance: well-developed, well-nourished, appears stated age EENT: PERRL, mucous membranes moist Neck: no JVD, no thyromegaly, no carotid bruit, supple Respiratory: Present: Rales (fine bibasilar crackles) Cardiology: regular, normal heart rate, S1S2, no murmurs Gastrointestinal: normal, normoactive bowel sounds Integumentary: no rash, other (1+ edema. AV fistula in the left upper arm. Good bruit and thrill.) - Lab 02/16/19 10:59 02/17/19 03:57 Most recent lab results Calcium 9.0 mg/dL (8.4-10.2) 02/17/19 03:57 Medications & Allergies - Medications Allergies/Adverse Reactions: Allergies acetaminophen [From Lorcet (hydrocodone)] Allergy (Verified 09/06/14 04:14) Rash carbamazepine [From Tegretol] Allergy (Verified 09/06/14 04:14) Rash cefaclor [From Ceclor] Allergy (Verified 09/06/14 04:14) Rash cephalexin monohydrate [From Keflex] Allergy (Verified 09/06/14 04:14) Rash chlorpheniramine maleate [From Isoclor] Allergy (Verified 09/06/14 04:14) Rash codeine phosphate [From Isoclor] Allergy (Verified 09/06/14 04:14) Rash guaifenesin [From Isoclor] Allergy (Verified 09/06/14 04:14) Rash hydrocodone Allergy (Verified 09/06/14 04:14) Rash hydrocodone bitartrate [From Lorcet (hydrocodone)] Allergy (Verified 09/06/14 04:14) Rash indomethacin [From Indocin] Allergy (Verified 09/06/14 04:14) Rash indomethacin sodium [From Indocin] Allergy (Verified 09/06/14 04:14) Rash ofloxacin [From Floxin] Allergy (Verified 09/06/14 04:14) Rash oxycodone HCl [From Percocet] Allergy (Verified 09/06/14 04:14) Rash Penicillins Allergy (Verified 09/06/14 04:14) Rash promethazine HCl [From Phenergan] Allergy (Verified 09/06/14 04:14) Rash pseudoephedrine Allergy (Verified 09/06/14 04:14) Rash pseudoephedrine HCl [From Isoclor] Allergy (Verified 09/06/14 04:14) Rash Sulfa (Sulfonamide Antibiotics) Allergy (Verified 09/06/14 04:14) Rash sulfamethoxazole [From Bactrim] Allergy (Verified 09/06/14 04:14) Rash tetracycline Allergy (Verified 09/06/14 04:14) Rash tetracycline HCl [From Sumycin] Allergy (Verified 09/06/14 04:14) Rash trimethoprim [From Bactrim] Allergy (Verified 09/06/14 04:14) Rash valacyclovir HCl [From Valtrex] Allergy (Verified 09/06/14 04:14) Rash Home Medications: Home Medications Medication Instructions Recorded Confirmed Last Taken Type Insulin Detemir [Levemir Flextouch] 38 units SUB-Q HS 09/09/14 02/16/19 08/26/18 History Zolpidem [Ambien] 10 mg PO QHS 08/27/18 02/16/19 08/26/18 History Gabapentin [Neurontin] 800 mg PO TID #90 capsule 09/01/18 02/16/19 Unknown Rx Insulin Lispro [Humalog 100 33 units SQ AC 02/16/19 02/16/19 Unknown History UNITS/ML Kwikpen] Active Medications: Generic Name Dose Route Start Last Admin Trade Name Freq PRN Reason Stop Dose Admin Acetaminophen 650 mg 02/16/19 12:31 Tylenol PO Q4H PRN Pain MILD(1-3)/Fever >100.5/TAMEZ Albuterol 2.5 mg 02/16/19 12:31 Proventil IH Q4HRT PRN Shortness Of Breath Atorvastatin Calcium 20 mg 02/16/19 22:00 02/16/19 22:05 Lipitor PO 20 mg QHS FOSTER Administration Furosemide 20 mg 02/17/19 10:00 02/17/19 09:14 Lasix PO Not Given QDAY FOSTER Gabapentin 800 mg 02/16/19 14:00 02/17/19 08:45 Neurontin PO 800 mg TID FOSTER Administration Hydralazine HCl 10 mg 02/16/19 20:41 02/16/19 22:06 Apresoline IV 10 mg Q4HR PRN Administration high blood pressure Sodium Chloride 100 mls @ 999 mls/hr 02/16/19 13:33 Nacl 0.9% IV ANJELICA PRN Hypotension Sodium Chloride 100 mls @ 999 mls/hr 02/17/19 09:53 Nacl 0.9% IV ANJELICA PRN Hypotension Ondansetron HCl 4 mg 02/16/19 12:31 Zofran IV Q8H PRN Nausea And Vomiting Ondansetron HCl 4 mg 02/16/19 14:00 02/17/19 05:19 Zofran Odt PO 4 mg Q8HR FOSTER Administration Pantoprazole Sodium 40 mg 02/17/19 10:00 02/17/19 09:05 Protonix PO 40 mg QDAY FOSTER Administration Sertraline HCl 50 mg 02/17/19 10:00 02/17/19 09:05 Zoloft PO 50 mg QDAY FOSTER Administration Sodium Chloride 10 ml 02/16/19 22:00 02/17/19 09:05 Sodium Chloride Flush Syringe 10 Ml IV 10 ml BID FOSTER Administration Sodium Chloride 10 ml 02/16/19 12:31 Sodium Chloride Flush Syringe 10 Ml IV PRN PRN LINE FLUSH Sodium Polystyrene Sulfonate 15 gm 02/16/19 14:00 02/17/19 09:12 Kionex PO Not Given QDAY FOSTER Zolpidem Tartrate 10 mg 02/16/19 22:00 02/16/19 22:05 Ambien PO 10 mg QHS FOSTER Administration
[2019-02-17] MEDS ORDERED: D50W (25GM) Syringe IV PRN (10:21)
--- NOTE | 2019-02-17 13:37 | Progress Note ---
Assessment and Plan Assessment and plan: 64 YO Female with ESRD on HD (T,R,Sa), HTN, DM, Migraine, DVT not currently on therapeutic anticoagulation presents to ED for evaluation. Pt reports noncompliance with dialysis and was last dialyzed on 1 week ago. Pt reports feeling tired, but also states that she feels like this when she does not get he r dialysis. Pt reports going to her dialysis center for routine dialysis as was found to have hypertension with SBP>200. EMS notified and he patient was found to be hypertensive and transported to [facility]. Pt seen and evaluated in ED and fonund to have ESRD needing dialysis complicated by fluid overload, and hypertensive urgency. Pt treated with antihypertensive therapy with improvement in symptoms. Nephrology consulted for urgent dialysis. Pt. Pt denies fever, chills, CP, Palpitations, Trauma, productive cough, headache, dizziness, syncope, or recent ill contacts. Prior admission on 08/27/18 reviewed. All listed medication reconciled at time of admission. End-stage renal disease on hemodialysis Diabetes mellitus Metabolic acidosis Hyperkalemia Accelerated hypertension Hyponatremia Noncompliance Morbid obesity History of DVT Plan Continue supportive care Patient for further dialysis today considering [place] on time making her miss dialysis Continue to intellectualize anticipate improvement with dialysis Continue Accu-Cheks before meals and at bedtime DVT and GI prophylaxis After discussing the patient in detail History Interval history: Patient exhibited this time resting comfortably although she is not yet at baseline. She denies any chest pain nausea or vomiting at this time she reports generalized weakness. She is going for dialysis at that time i was seeing her Hospitalist Physical - Physical exam Narrative exam: VITAL SIGNS: Reviewed. GENERAL: The patient appeared well nourished and normally developed, otherwise lethargic appearing Vital signs as documented. HEAD: No signs of head trauma. EYES: Pupils are equal. Extraocular motions intact. EARS: Hearing grossly intact. MOUTH: Oropharynx is normal. NECK: No adenopathy, no JVD. CHEST: Chest with clear breath sounds bilaterally. No wheezes, rales, or rhonchi. CARDIAC: Regular rate and rhythm. S1 and S2, without murmurs, gallops, or rubs. VASCULAR: No Edema. Peripheral pulses normal and equal in all extremities. ABDOMEN: Soft, non tender and non distended. No rebound or guarding, and no masses palpated. Bowel Sounds normal. MUSCULOSKELETAL: Good range of motion of all major joints. Extremities without clubbing, cyanosis or edema. NEUROLOGIC EXAM: awake but lethargic and oriented x 3 No focal sensory or strength deficits. Speech normal. Follows commands. PSYCHIATRIC: Mood normal. SKIN: No rash or lesions. - Constitutional Vitals: Temp Pulse Resp BP Pulse Ox 97.2 F L 66 18 139/55 96 02/17/19 10:10 02/17/19 10:25 02/17/19 10:10 02/17/19 10:25 02/17/19 08:51 General appearance: Present: mild distress Results - Labs CBC & Chem 7: 02/16/19 10:59 02/17/19 03:57 Labs: Laboratory Last Values WBC 7.3 K/mm3 (4.5-11.0) 02/16/19 10:59 RBC 3.53 M/mm3 (3.65-5.03) L 02/16/19 10:59 Hgb 11.2 gm/dl (10.1-14.3) 02/16/19 10:59 Hct 32.7 % (30.3-42.9) 02/16/19 10:59 MCV 93 fl (79-97) 02/16/19 10:59 MCH 32 pg (28-32) 02/16/19 10:59 MCHC 34 % (30-34) 02/16/19 10:59 RDW 19.0 % (13.2-15.2) H 02/16/19 10:59 Plt Count 250 K/mm3 (140-440) 02/16/19 10:59 Lymph % (Auto) 15.8 % (13.4-35.0) 02/16/19 10:59 Mcdonald % (Auto) 5.2 % (0.0-7.3) 02/16/19 10:59 Eos % (Auto) 2.2 % (0.0-4.3) 02/16/19 10:59 Baso % (Auto) 1.3 % (0.0-1.8) 02/16/19 10:59 Lymph # 1.2 K/mm3 (1.2-5.4) 02/16/19 10:59 Mcdonald # 0.4 K/mm3 (0.0-0.8) 02/16/19 10:59 Eos # 0.2 K/mm3 (0.0-0.4) 02/16/19 10:59 Baso # 0.1 K/mm3 (0.0-0.1) 02/16/19 10:59 Seg Neutrophils % 75.5 % (40.0-70.0) H 02/16/19 10:59 Seg Neutrophils # 5.5 K/mm3 (1.8-7.7) 02/16/19 10:59 Sodium 133 mmol/L (137-145) L 02/17/19 03:57 Potassium 5.2 mmol/L (3.6-5.0) H 02/17/19 03:57 Chloride 97.7 mmol/L (98-107) L 02/17/19 03:57 Carbon Dioxide 22 mmol/L (22-30) 02/17/19 03:57 19 mmol/L 02/17/19 03:57 BUN 53 mg/dL (7-17) H 02/17/19 03:57 6.4 mg/dL (0.7-1.2) H 02/17/19 03:57 Estimated GFR 7 ml/min 02/17/19 03:57 8 % 02/17/19 03:57 Glucose 233 mg/dL (65-100) H 02/17/19 03:57 POC Glucose 184 (70-105) H 02/17/19 07:15 Calcium 9.0 mg/dL (8.4-10.2) 02/17/19 03:57 Active Medications - Current Medications Current Medications: Generic Name Dose Route Start Last Admin Trade Name Negroq PRN Reason Stop Dose Admin Acetaminophen 650 mg 02/16/19 12:31 Tylenol PO Q4H PRN Pain MILD(1-3)/Fever >100.5/TAMEZ Albuterol 2.5 mg 02/16/19 12:31 Proventil IH Q4HRT PRN Shortness Of Breath Atorvastatin Calcium 20 mg 02/16/19 22:00 02/16/19 22:05 Lipitor PO 20 mg QHS FOSTER Administration Dextrose 50 ml 02/17/19 10:21 D50w (25gm) Syringe IV PRN PRN Hypoglycemia Furosemide 20 mg 02/17/19 10:00 02/17/19 09:14 Lasix PO Not Given QDAY FOSTER Gabapentin 800 mg 02/16/19 14:00 02/17/19 08:45 Neurontin PO 800 mg TID FOSTER Administration Hydralazine HCl 10 mg 02/16/19 20:41 02/16/19 22:06 Apresoline IV 10 mg Q4HR PRN Administration high blood pressure Sodium Chloride 100 mls @ 999 mls/hr 02/17/19 10:51 Nacl 0.9% IV ANJELICA PRN Hypotension Insulin Glargine 20 units 02/17/19 22:00 Lantus SUB-Q QHS FOSTER Insulin Human Lispro 0 unit 02/17/19 11:30 Humalog SUB-Q ACHS [facility] Protocol Ondansetron HCl 4 mg 02/16/19 12:31 Zofran IV Q8H PRN Nausea And Vomiting Ondansetron HCl 4 mg 02/16/19 14:00 02/17/19 05:19 Zofran Odt PO 4 mg Q8HR FOSTER Administration Pantoprazole Sodium 40 mg 02/17/19 10:00 02/17/19 09:05 Protonix PO 40 mg QDAY FOSTER Administration Sertraline HCl 50 mg 02/17/19 10:00 02/17/19 09:05 Zoloft PO 50 mg QDAY FOSTER Administration Sodium Chloride 10 ml 02/16/19 22:00 02/17/19 09:05 Sodium Chloride Flush Syringe 10 Ml IV 10 ml BID FOSTER Administration Sodium Chloride 10 ml 02/16/19 12:31 Sodium Chloride Flush Syringe 10 Ml IV PRN PRN LINE FLUSH Sodium Polystyrene Sulfonate 15 gm 02/16/19 14:00 02/17/19 09:12 Kionex PO Not Given QDAY FOSTER Zolpidem Tartrate 10 mg 02/16/19 22:00 02/16/19 22:05 Ambien PO 10 mg QHS FOSTER Administration
[2019-02-17] MEDS ORDERED: NACL 0.9 (PRIMING MACHINE ONLY DIALYSIS) MC ONE (14:00)
[2019-02-17] MEDS: HumaLOG SUB-Q SCH ×3 (14:28→22:28)
[2019-02-17 18:26] LABS: Hepatitis C Virus Antibody Reactive (NonReactive)
[2019-02-17 19:05] LABS: Hepatitis B Surface Antigen Non-Reactive (Negative)
[2019-02-17] MEDS ORDERED: LANTUS SUB-Q SCH (22:00)
[2019-02-17] MEDS ORDERED: NON-FORMULARY (Insulin Detemir [Levemir Flextouch] 20 UNITS) SUB-Q SCH (22:00)
[2019-02-17] MEDS: AMBIEN PO SCH (22:27)
[2019-02-18] MEDS: ZOFRAN ODT PO SCH ×2 (06:24→15:37)
[2019-02-18] MEDS: HumaLOG SUB-Q SCH ×2 (08:45→12:00)
[2019-02-18] MEDS: NEURONTIN PO SCH ×2 (08:46→15:37)
--- NOTE | 2019-02-18 09:04 | Progress Note ---
Assessment and Plan Impression * End-stage renal disease on maintenance hemodialysis * Hyperkalemia * Accelerated hypertension * Noncompliance * Diabetes * Obesity * History of DVT Recommendations * Patient had uneventful extra hemodialysis treatment yesterday. * Continue hemodialysis on TTS schedule as outpatient * Volume overload is much improved * A blood pressure still elevated. Adjust her antihypertensive meds. * Adjust diet and meds for ESRD state * No IV, BP of any puncture in her access arm * Avoid nephrotoxins * She undergoes hemodialysis at [facility] on TTS schedule Subjective Date of service: 02/18/19 Interval history: Patient is comfortable. Her shortness of breath has improved. No nausea or vomiting. Objective - Vital Signs Vital signs: Vital Signs - 12hr 02/17/19 02/18/19 02/18/19 22:00 02:55 07:16 Temperature 98.1 F 98.0 F Pulse Rate 65 63 Respiratory 18 20 20 Rate Blood Pressure 186/70 176/58 O2 Sat by Pulse 95 91 96 Oximetry - General Appearance General appearance: well-developed, well-nourished, appears stated age EENT: PERRL, mucous membranes moist Neck: no JVD, no thyromegaly, no carotid bruit, supple Respiratory: Present: Decreased Breath Sounds (at the bases) Cardiology: regular, normal heart rate, S1S2, no murmurs Gastrointestinal: normal, normoactive bowel sounds Integumentary: no rash, other (AV fistula in her upper arm. Good bruit and thrill.) - Lab 02/16/19 10:59 02/17/19 03:57 Most recent lab results Calcium 9.0 mg/dL (8.4-10.2) 02/17/19 03:57 Medications & Allergies - Medications Allergies/Adverse Reactions: Allergies acetaminophen [From Lorcet (hydrocodone)] Allergy (Verified 09/06/14 04:14) Rash carbamazepine [From Tegretol] Allergy (Verified 09/06/14 04:14) Rash cefaclor [From Ceclor] Allergy (Verified 09/06/14 04:14) Rash cephalexin monohydrate [From Keflex] Allergy (Verified 09/06/14 04:14) Rash chlorpheniramine maleate [From Isoclor] Allergy (Verified 09/06/14 04:14) Rash codeine phosphate [From Isoclor] Allergy (Verified 09/06/14 04:14) Rash guaifenesin [From Isoclor] Allergy (Verified 09/06/14 04:14) Rash hydrocodone Allergy (Verified 09/06/14 04:14) Rash hydrocodone bitartrate [From Lorcet (hydrocodone)] Allergy (Verified 09/06/14 04:14) Rash indomethacin [From Indocin] Allergy (Verified 09/06/14 04:14) Rash indomethacin sodium [From Indocin] Allergy (Verified 09/06/14 04:14) Rash ofloxacin [From Floxin] Allergy (Verified 09/06/14 04:14) Rash oxycodone HCl [From Percocet] Allergy (Verified 09/06/14 04:14) Rash Penicillins Allergy (Verified 09/06/14 04:14) Rash promethazine HCl [From Phenergan] Allergy (Verified 09/06/14 04:14) Rash pseudoephedrine Allergy (Verified 09/06/14 04:14) Rash pseudoephedrine HCl [From Isoclor] Allergy (Verified 09/06/14 04:14) Rash Sulfa (Sulfonamide Antibiotics) Allergy (Verified 09/06/14 04:14) Rash sulfamethoxazole [From Bactrim] Allergy (Verified 09/06/14 04:14) Rash tetracycline Allergy (Verified 09/06/14 04:14) Rash tetracycline HCl [From Sumycin] Allergy (Verified 09/06/14 04:14) Rash trimethoprim [From Bactrim] Allergy (Verified 09/06/14 04:14) Rash valacyclovir HCl [From Valtrex] Allergy (Verified 09/06/14 04:14) Rash Home Medications: Home Medications Medication Instructions Recorded Confirmed Last Taken Type Insulin Detemir [Levemir Flextouch] 38 units SUB-Q HS 09/09/14 02/16/19 08/26/18 History Zolpidem [Ambien] 10 mg PO QHS 08/27/18 02/16/19 08/26/18 History Gabapentin [Neurontin] 800 mg PO TID #90 capsule 09/01/18 02/16/19 Unknown Rx Insulin Lispro [Humalog 100 33 units SQ AC 02/16/19 02/16/19 Unknown History UNITS/ML Kwikpen] Active Medications: Generic Name Dose Route Start Last Admin Trade Name Freq PRN Reason Stop Dose Admin Acetaminophen 650 mg 02/16/19 12:31 Tylenol PO Q4H PRN Pain MILD(1-3)/Fever >100.5/TAMEZ Albuterol 2.5 mg 02/16/19 12:31 Proventil IH Q4HRT PRN Shortness Of Breath Atorvastatin Calcium 20 mg 02/16/19 22:00 02/17/19 22:27 Lipitor PO 20 mg QHS FOSTER Administration Dextrose 50 ml 02/17/19 10:21 D50w (25gm) Syringe IV PRN PRN Hypoglycemia Furosemide 20 mg 02/17/19 10:00 02/17/19 09:14 Lasix PO Not Given QDAY FOSTER Gabapentin 800 mg 02/16/19 14:00 02/18/19 08:46 Neurontin PO 800 mg TID FOSTER Administration Hydralazine HCl 10 mg 02/16/19 20:41 02/16/19 22:06 Apresoline IV 10 mg Q4HR PRN Administration high blood pressure Sodium Chloride 100 mls @ 999 mls/hr 02/17/19 10:51 Nacl 0.9% IV ANJELICA PRN Hypotension Insulin Glargine 20 units 02/17/19 22:00 02/17/19 22:26 Lantus SUB-Q 20 units QHS FOSTER Administration Insulin Human Lispro 0 unit 02/17/19 11:30 02/18/19 08:45 Humalog SUB-Q Not Given ACHS [facility] Protocol Ondansetron HCl 4 mg 02/16/19 12:31 Zofran IV Q8H PRN Nausea And Vomiting Ondansetron HCl 4 mg 02/16/19 14:00 02/18/19 06:24 Zofran Odt PO 4 mg Q8HR FOSTER Administration Pantoprazole Sodium 40 mg 02/17/19 10:00 02/17/19 09:05 Protonix PO 40 mg QDAY FOSTER Administration Sertraline HCl 50 mg 02/17/19 10:00 02/17/19 09:05 Zoloft PO 50 mg QDAY FOSTER Administration Sodium Chloride 10 ml 02/16/19 22:00 02/17/19 22:29 Sodium Chloride Flush Syringe 10 Ml IV 10 ml BID FOSTER Administration Sodium Chloride 10 ml 02/16/19 12:31 Sodium Chloride Flush Syringe 10 Ml IV PRN PRN LINE FLUSH Sodium Polystyrene Sulfonate 15 gm 02/16/19 14:00 02/17/19 09:12 Kionex PO Not Given QDAY FOSTER Zolpidem Tartrate 10 mg 02/16/19 22:00 02/17/19 22:27 Ambien PO 10 mg QHS FOSTER Administration
[2019-02-18] MEDS ORDERED: NORVASC PO SCH (10:00)
[2019-02-18] MEDS: LASIX PO SCH ×2 (10:35→10:38)
[2019-02-18] MEDS: ZOLOFT PO SCH (10:35)
[2019-02-18] MEDS: PROTONIX PO SCH (10:35)
[2019-02-18] MEDS: SODIUM CHLORIDE FLUSH SYRINGE 10 ML IV SCH (10:36)
[2019-02-18] MEDS: KIONEX PO SCH (10:36)
--- NOTE | 2019-02-18 10:38 | Discharge Summary ---
Providers - Providers Date of Admission: 02/16/19 12:31 Attending physician: PRITI DOLL MD 02/16/19 12:31 Consult to Physician [CONS] Routine Comment: DR DON Landrum/GIL @[id number] Consulting Provider: MIRACLE FLYNN Physician Instructions: Reason For Exam: esrd 02/17/19 12:09 Physical Therapy Evaluation and Treat [CONS] Routine Comment: Reason For Exam: Weakness [facility] Reason for admission: ESRD Condition: Stable Hospital course: 64 YO Female with ESRD on HD (T,R,Sa), HTN, DM, Migraine, DVT not currently on therapeutic anticoagulation presents to ED for evaluation. Pt reports noncompliance with dialysis and was last dialyzed on 1 week ago. Pt reports f eeling tired, but also states that she feels like this when she does not get her dialysis. Pt reports going to her dialysis center for routine dialysis as was found to have hypertension with SBP>200. EMS notified and he patient was found to be hypertensive and transported to [facility]. Pt seen and evaluated in ED and fonund to have ESRD needing dialysis complicated by fluid overload, and hypertensive urgency. Pt treated with antihypertensive therapy with improvement in symptoms. Nephrology consulted for urgent dialysis. Pt. Pt denies fever, chills, CP, Palpitations, Trauma, productive cough, headache, dizziness, syncope, or recent ill contacts. Prior admission on 08/27/18 reviewed. All listed medication reconciled at time of admission. [place] on [place] making her miss dialysis During admission patient was dialyzed daily x 3 days and resumed on her schedule. We had extensive discussion about compliance and planning for travel to ensure no missed dialysis Electrolytes continued to improve. Clinically she improved and is table to discharge. Discharge Diagnosis End-stage renal disease on hemodialysis Diabetes mellitus Metabolic acidosis Hyperkalemia Accelerated hypertension Hyponatremia Noncompliance Morbid obesity History of DVT Disposition: - TO HOME OR SELFCARE Time spent for discharge: 35 MINS Core Measure Documentation - Palliative Care Palliative Care/ Comfort Measures: Not Applicable - Core Measures Any of the following diagnoses?: none Exam - Physical Exam Narrative exam: VITAL SIGNS: Reviewed. GENERAL: The patient appeared well nourished and normally developed,Vital signs as documented. HEAD: No signs of head trauma. EYES: Pupils are equal. Extraocular motions intact. EARS: Hearing grossly intact. MOUTH: Oropharynx is normal. NECK: No adenopathy, no JVD. CHEST: Chest with clear breath sounds bilaterally. No wheezes, rales, or rho nchi. CARDIAC: Regular rate and rhythm. S1 and S2, without murmurs, gallops, or rubs. VASCULAR: No Edema. Peripheral pulses normal and equal in all extremities. ABDOMEN: Soft, non tender and non distended. No rebound or guarding, and no masses palpated. Bowel Sounds normal. MUSCULOSKELETAL: Good range of motion of all major joints. Extremities without clubbing, cyanosis or edema. NEUROLOGIC EXAM: awake,AWAKE, Sitting up and oriented x 3 No focal sensory or strength deficits. Speech normal. Follows commands. PSYCHIATRIC: Mood normal. SKIN: No rash or lesions. - Constitutional Vitals: Temp Pulse Resp BP Pulse Ox 98.0 F 63 20 176/58 96 02/18/19 07:16 02/18/19 07:16 02/18/19 07:16 02/18/19 07:16 02/18/19 07:16 Plan Activity: advance as tolerated, fall precautions Diet: diabetic, renal Special Instructions: record daily weights, record daily BP diary, record blood sugar diary Follow up with: FABIÁN CHOUCHESAPEAKE MD LUIS FELIPE [Primary Care Provider] - 3-5 Days LEVON GALVIN MD [Staff Physician] - 7 Days
[2019-02-18 12:58] LABS: Calcium 9.1 mg/dL (8.4-10.2)
[2019-02-18 15:28] VITALS: BP 141/56
== END 2019-02-18 16:50 | disposition home or self-care (01) | DRG 304 ==
LOC: ED 10:35 → 2B-ACE 12:31
PROVIDERS: ADMIT Internal Medicine; ATTEND Internal Medicine
PROC: 5A1D70Z Performance of Urinary Filtration, Intermittent, Less than 6 Hours Per Day (ICD-10-PCS; principal; 2019-02-16)
PROC: 5A1D70Z Performance of Urinary Filtration, Intermittent, Less than 6 Hours Per Day (ICD-10-PCS; 2019-02-17)
PROC: 5A1D70Z Performance of Urinary Filtration, Intermittent, Less than 6 Hours Per Day (ICD-10-PCS; 2019-02-18)
DX: I16.0 Hypertensive urgency (principal); N18.6 End stage renal disease; E87.1 Hypo-osmolality and hyponatremia; E87.2 Acidosis; I12.0 Hypertensive chronic kidney disease with stage 5 chronic kidney disease or end stage renal disease; E66.01 Morbid (severe) obesity due to excess calories; E87.5 Hyperkalemia; E11.22 Type 2 diabetes mellitus with diabetic chronic kidney disease; G43.909 Migraine, unspecified, not intractable, without status migrainosus; Z87.891 Personal history of nicotine dependence; Z79.4 Long term (current) use of insulin; Z79.899 Other long term (current) drug therapy; Z99.2 Dependence on renal dialysis; Z86.718 Personal history of other venous thrombosis and embolism; Z83.3 Family history of diabetes mellitus; Z82.49 Family history of ischemic heart disease and other diseases of the circulatory system; Z88.1 Allergy status to other antibiotic agents; Z88.5 Allergy status to narcotic agent; Z88.0 Allergy status to penicillin; Z88.2 Allergy status to sulfonamides; Z88.8 Allergy status to other drugs, medicaments and biological substances; Z68.30 Body mass index [BMI] 30.0-30.9, adult; Z91.19 Patient's noncompliance with other medical treatment and regimen
CPT/HCPCS: 36415; 80048; 80074; 82962; 85025; G0378; A9270-GY; J0360; J0610; J1815; J7030; Q0162

== ENCOUNTER 2020-04-26 11:31 | Emergency (ER) | payer MEDICARE ==
[2020-04-26 11:57] VITALS: BP 186/77
--- NOTE | 2020-04-26 12:00 | Emergency Department Report ---
Blank Doc - Documentation Documentation: This is a 65-year-old female that presents with nausea vomiting and weakness. This initial assessment/diagnostic orders/clinical plan/treatment(s) is/are subject to change based on patient's health status, clinical progression and re- assessment by fellow clinical providers in the ED. Further treatment and workup at subsequent clinical providers discretion. Patient/guardians urged not to elope from the ED as their condition may be serious if not clinically assessed and managed. Initial orders include: 1- Patient sent to MAIN ED for further evaluation and treatment 2- labs 3- UA
[2020-04-26 12:39] LABS: INR 1.12 (0.87-1.13); Partial Thromboplastin Time 29.5 Sec. (24.2-36.6)
[2020-04-26 12:47] LABS: Albumin 3.8 g/dL (3.9-5); Calcium 9.5 mg/dL (8.4-10.2)
[2020-04-26 12:54] LABS: Hematocrit 29.3 % (30.3-42.9); Hemoglobin 9.5 gm/dl (10.1-14.3); Mean Corpuscular HGB Conc 32 % (30-34); Mean Corpuscular Volume 87 fl (79-97); Platelet Count 289 K/mm3 (140-440); Red Blood Count 3.37 M/mm3 (3.65-5.03)
[2020-04-26 12:57] LABS: Red Cell Distribution Width 20.7 % (13.2-15.2)
[2020-04-26 14:35] LABS: Anisocytosis 1+; Band Neutrophils # (Manual) 0.1 K/mm3; Basophils % (Manual) 0 % (0.0-1.8); Platelet Estimate Consistent w Auto; Total Cells Counted 100
[2020-04-26] MEDS ORDERED: ONDANSETRON 4 MG/2 ML INJ IV ONE (17:13)
[2020-04-26] MEDS ORDERED: PROCHLORPERAZINE EDISYLATE 10 MG/2 ML VIAL IV ONE (17:18)
[2020-04-26] MEDS ORDERED: FAMOTIDINE 20 MG/2 ML INJ IV ONE (17:18)
[2020-04-26] MEDS ORDERED: SODIUM CHLORIDE 0.9% 1000 ML 1,000 ML IV ONE (17:33)
--- NOTE | 2020-04-26 17:38 | Emergency Department Report ---
HPI - General Chief Complaint: Nausea/Vomiting/Diarrhea Time Seen by Provider: 04/26/20 11:56 - HPI HPI: Room 42 The patient is a 65-year-old female present with a chief complaint of nausea and vomiting. Patient states for the past 3 weeks she is of nausea vomiting and epigastric abdominal pain. Patient denies history of fever but states she has had slight diarrhea. The patient states she did go to the hospital in [place] and was admitted underwent endoscopy and eventually discharged home. Patient states she does not recall a specific diagnosis. 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 blood clot removed on left leg - Family History Family history: no significant - Social History Smoking Status: Never Smoker Substance Use Type: None (Denies illicit drug use) - Medications Home Medications: Home Medications Medication Instructions Recorded Confirmed Last Taken Type Insulin Detemir (Nf) [Levemir 38 units SUB-Q HS 09/09/14 02/16/19 08/26/18 History Flextouch (Nf)] Zolpidem [Ambien] 10 mg PO QHS 08/27/18 02/16/19 08/26/18 History Gabapentin 800 mg PO TID #90 capsule 09/01/18 02/16/19 Unknown Rx Insulin Lispro [Humalog 100 33 units SQ AC 02/16/19 02/16/19 Unknown History UNITS/ML Kwikpen] AtorvaSTATin [Lipitor] 20 mg PO QHS tablet 02/18/19 Unknown Rx Furosemide [Lasix TAB] 20 mg PO QDAY tablet 02/18/19 Unknown Rx Ondansetron [Zofran ODT TAB] 4 mg PO Q8HR tab.rapdis 02/18/19 Unknown Rx Pantoprazole [Protonix TAB] 40 mg PO QDAY tablet 02/18/19 Unknown Rx Sertraline [Zoloft] 50 mg PO QDAY tablet 02/18/19 Unknown Rx ED Review of Systems ROS: Stated complaint: N/V Other details as noted in HPI Constitutional: denies: fever Respiratory: no symptoms reported Endocrine: no symptoms reported Gastrointestinal: abdominal pain, nausea, vomiting, diarrhea Physical Exam - Physical Exam Vital Signs: Vital Signs 04/26/20 11:56 Temperature 98.0 F Pulse Rate 89 Respiratory 18 Rate Blood Pressure 186/77 O2 Sat by Pulse 94 Oximetry Physical Exam: GENERAL: The patient is well-developed well-nourished female sitting on stretcher not appearing to be in acute distress. [] HEENT: Normocephalic. Atraumatic. Extraocular motions are intact. Patient has moist mucous membranes. NECK: Supple. Trachea midline CHEST/LUNGS: Clear to auscultation. There is no respiratory distress noted. HEART/CARDIOVASCULAR: Regular. There is no tachycardia. There is no gallop rub or murmur. ABDOMEN: Abdomen is soft, with mild discomfort to palpation in the midepigastric region. Patient has normal bowel sounds. There is no abdominal distention. SKIN: There is no rash. There is no edema. There is no diaphoresis. NEURO: The patient is awake, alert, and oriented. The patient is cooperative. The patient has normal speech MUSCULOSKELETAL: There is no evidence of acute injury. ED Course Vital Signs 04/26/20 11:56 Temperature 98.0 F Pulse Rate 89 Respiratory 18 Rate Blood Pressure 186/77 O2 Sat by Pulse 94 Oximetry ED Medical Decision Making - Lab Data Result diagrams: 04/26/20 12:14 04/26/20 12:14 Laboratory Tests 04/26/20 04/26/20 04/26/20 12:14 12:14 12:14 WBC 10.4 RBC 3.37 L Hgb 9.5 L Hct 29.3 L MCV 87 MCH 28 MCHC 32 RDW 20.7 H Plt Count 289 Baso % (Auto) Evp And Chief Operating Officer Add Manual Diff Complete Total Counted 100 Seg Neuts % (Manual) 89.0 H Band Neutrophils % 1.0 Lymphocytes % (Manual) 3.0 L Reactive Lymphs % (Man) 0 Monocytes % (Manual) 3.0 Eosinophils % (Manual) 3.0 Basophils % (Manual) 0 Metamyelocytes % 1.0 Myelocytes % 0 Promyelocytes % 0 Blast Cells % 0 Nucleated RBC % Not Reportable Seg Neutrophils # Man 9.3 H Band Neutrophils # 0.1 Lymphocytes # (Manual) 0.3 L Abs React Lymphs (Man) 0.0 Monocytes # (Manual) 0.3 Eosinophils # (Manual) 0.3 Basophils # (Manual) 0.0 Metamyelocytes # 0.1 Myelocytes # 0.0 Promyelocytes # 0.0 Blast Cells # 0.0 WBC Morphology Not Reportable Hypersegmented Neuts Not Reportable Hyposegmented Neuts Not Reportable Hypogranular Neuts Not Reportable Smudge Cells Not Reportable Toxic Granulation Not Reportable Toxic Vacuolation Not Reportable Dohle Bodies Not Reportable Pelger-Huet Anomaly Not Reportable Fang Rods Not Reportable Platelet Estimate Consistent w auto Clumped Platelets Not Reportable Plt Clumps, EDTA Not Reportable Large Platelets Not Reportable Giant Platelets Not Reportable Platelet Satelliting Not Reportable Plt Morphology Comment Not Reportable RBC Morphology Not Reportable Dimorphic RBCs Not Reportable Polychromasia Not Reportable Hypochromasia Not Reportable Poikilocytosis Not Reportable Anisocytosis 1+ Microcytosis Few Macrocytosis Not Reportable Spherocytes Not Reportable Pappenheimer Bodies Not Reportable Sickle Cells Not Reportable Target Cells Not Reportable Tear Drop Cells Not Reportable Ovalocytes Not Reportable Helmet Cells Not Reportable [place] Bodies Not Reportable [place] Rings Not Reportable [place] Cells Not Reportable Bite Cells Not Reportable Crenated Cell Not Reportable Elliptocytes Not Reportable Acanthocytes (Spur) Not Reportable Rouleaux Not Reportable Hemoglobin C Crystals Not Reportable Schistocytes Not Reportable Malaria parasites Not Reportable Julien Bodies Not Reportable Hem Pathologist Commnt No PT 14.5 INR 1.12 APTT 29.5 Sodium 132 L Potassium 4.8 Chloride 93.2 L Carbon Dioxide 23 Anion Gap 21 BUN 46 H Creatinine 6.9 H Estimated GFR 6 BUN/Creatinine Ratio 7 Glucose 216 H Calcium 9.5 Total Bilirubin 0.50 AST 6 ALT 5 L Alkaline Phosphatase 102 Troponin T 0.084 H Total Protein 6.8 Albumin 3.8 L Albumin/Globulin Ratio 1.3 Triglycerides 208 H Cholesterol 165 LDL Cholesterol Direct 86 HDL Cholesterol 33 L Cholesterol/HDL Ratio 5.00 Lipase 04/26/20 17:38 WBC RBC Hgb Hct MCV MCH MCHC RDW Plt Count Baso % (Auto) Add Manual Diff Total Counted Seg Neuts % (Manual) Band Neutrophils % Lymphocytes % (Manual) Reactive Lymphs % (Man) Monocytes % (Manual) Eosinophils % (Manual) Basophils % (Manual) Metamyelocytes % Myelocytes % Promyelocytes % Blast Cells % Nucleated RBC % Seg Neutrophils # Man Band Neutrophils # Lymphocytes # (Manual) Abs React Lymphs (Man) Monocytes # (Manual) Eosinophils # (Manual) Basophils # (Manual) Metamyelocytes # Myelocytes # Promyelocytes # Blast Cells # WBC Morphology Hypersegmented Neuts Hyposegmented Neuts Hypogranular Neuts Smudge Cells Toxic Granulation Toxic Vacuolation Dohle Bodies Pelger-Huet Anomaly Fang Rods Platelet Estimate Clumped Platelets Plt Clumps, EDTA Large Platelets Giant Platelets Platelet Satelliting Plt Morphology Comment RBC Morphology Dimorphic RBCs Polychromasia Hypochromasia Poikilocytosis Anisocytosis Microcytosis Macrocytosis Spherocytes Pappenheimer Bodies Sickle Cells Target Cells Tear Drop Cells Ovalocytes Helmet Cells [place] Bodies [place] Rings Millicent Cells Bite Cells Crenated Cell Elliptocytes Acanthocytes (Spur) Rouleaux Hemoglobin C Crystals Schistocytes Malaria parasites Julien Bodies Hem Pathologist Commnt PT INR APTT Sodium Potassium Chloride Carbon Dioxide Anion Gap BUN Creatinine Estimated GFR BUN/Creatinine Ratio Glucose Calcium Total Bilirubin AST ALT Alkaline Phosphatase Troponin T Total Protein Albumin Albumin/Globulin Ratio Triglycerides Cholesterol LDL Cholesterol Direct HDL Cholesterol Cholesterol/HDL Ratio Lipase 23 - Medical Decision Making Patient refused IV, IV Compazine or IV Zofran. Patient leaving AMA - Differential Diagnosis Gastritis, small bowel obstruction, pancreatitis Critical care attestation.: If time is entered above; I have spent that time in minutes in the direct care of this critically ill patient, excluding procedure time. ED Disposition Clinical Impression: Nausea & vomiting Disposition: DC-07 LEFT AGAINST MED ADVICE Is pt being admited?: No Does the pt Need Aspirin: No Condition: Undetermined Referrals: HAN JORGENSEN MD [Primary Care Provider] - 3-5 Days Time of Disposition: 18:46
[2020-04-26] MEDS ORDERED: PROCHLORPERAZINE MALEATE 10 MG TAB PO ONE (17:41)
[2020-04-26] MEDS ORDERED: FAMOTIDINE 20 MG TAB PO ONE (17:42)
--- NOTE | 2020-04-26 18:15 | Cat Scan Report ---
CT OF THE ABDOMEN AND PELVIS WITHOUT CONTRAST INDICATION / CLINICAL INFORMATION: Nausea and vomiting. TECHNIQUE: All CT scans at this location are performed using CT dose reduction for ALARA by means of automated e xposure control. COMPARISON: 08/29/2018. FINDINGS: ABDOMEN: There is mild generalized ascites and body wall edema. Extensive vascular calcifications are present. There is an IVC filter in the infrarenal IVC without acute complication. The gallbladder is surgically absent. Scattered calcified granulomata are present in the liver and spleen. The bile ducts, pancreas, adrenal glands, kidneys and bowel demonstrate no acute abnormality. No selma opathy is seen. There is a small calcified granuloma in the left lung base. PELVIS: There is mild pelvic ascites. The distal ureters and urinary bladder are normal. The uterus a nd adnexal regions are unremarkable. A normal appendix is present. There is no evidence of diverticul itis. I do not identify a hernia. A mild compression fracture of the T10 vertebral body is old.. IMPRESSION: Mild ascites and generalized anasarca. Signer Name: Parviz Solis MD Signed: 04/26/2020 6:10 PM Workstation Name: [id number]
== END 2020-04-26 21:15 | disposition home or self-care (01) ==
LOC: ED 11:31
DX: R11.2 Nausea with vomiting, unspecified (principal); R10.13 Epigastric pain; I10 Essential (primary) hypertension; E11.9 Type 2 diabetes mellitus without complications; G43.909 Migraine, unspecified, not intractable, without status migrainosus; Z87.448 Personal history of other diseases of urinary system; Z98.890 Other specified postprocedural states; Z79.4 Long term (current) use of insulin; Z79.899 Other long term (current) drug therapy; Z88.8 Allergy status to other drugs, medicaments and biological substances
CPT/HCPCS: 36415; 74176; 80053; 80061; 83690; 84484; 85007; 85025; 85610; 85730; 99285; Q0164; J0780

== ENCOUNTER 2020-06-30 07:24 | Emergency (ER) | payer MEDICARE ==
--- NOTE | 2020-06-30 07:43 | Emergency Department Report ---
ED CPR HPI - General Chief Complaint: Cardiac Arrest/CPR Stated Complaint: CARDIAC ARREST Time Seen by Provider: 06/30/20 07:33 Source: EMS (Verbal report received from emergency medical services. EMS documentation not available at time of chart dictation ), RN notes reviewed, old records reviewed Mode of arrival: Stretcher Limitations: Altered Mental Status, Physical Limitation - History of Present Illness Initial Comments: The patient was evaluated in the emergency department for symptoms described in the history of present illness. He/she was evaluated in the context of the global COVID-19 pandemic, which necessitated consideration that the patient might be at risk for infection with the virus that causes COVID-19. Institutional protocols and algorithms that pertain to the evaluation of patients at risk for COVID-19 are in a state of rapid change based on information released by regulatory bodies including the CDC and federal and state organizations. These policies and algorithms were followed during the patient's care in the emergency department. Please note that these policies, procedures and recommendations changed on a rapid basis. Patient is a 65-year-old female. She is brought to the hospital by emergency medical services as out of hospital cardiac arrest. Patient presents with a GCS of 3, intubated, receiving active chest compressions. Patient currently in need from EMS. EMS reports the patient is currently on hospice, but they do not have a signed DO NOT RESUSCITATE or DO NOT INTUBATE. Apparently, the patient was previously on hemodialysis, and she as per EMS declined to continue hemodialysis in the past week. EMS reports the patient was sleeping at around 5:00 this morning, and was given morphine, and at an uncertain time, and for uncertain reasons, emergency medical services were activated. EMS reports the patient was pulseless in the field, upon their initial arrival, and was not breathing. EMS initiated standard ACLS interventions, including intubation, aggressive chest compressions, right lower extremity IO placement, and standard ACLS medications. Patient has been pulseless for approximately 25 to 28 minutes, as per EMS, upon her arrival to this department. Upon initial evaluation, Accu-Chek greater than 200, pupils midpoint, do not react to light, and the patient is pulseless, without a shockable rhythm. She is not accompanied by friends or family at this time for additional information, collateral information, or to discuss goals of care, or advanced directives. There is currently no signed paperwork that indicates patient's goals of care or advanced directives. We continued standard ACLS interventions. Unfortunately, pulses could not be obtained. Resuscitation efforts are terminated secondary to medical futility, and prolonged downtime. At the moment, patient not accompanied by friends, family, or medical decision maker. MD Complaint: other -: unknown Initial Findings in the Field: no respirations, no pulse, PEA ROSC in the Field: No Associated Injuries: No Treatments Prior to Arrival: intubation, chest compressions, epinephrine mgs # (4) - Related Data Home Medications Medication Instructions Recorded Confirmed Last Taken Insulin Detemir (Nf) [Levemir 38 units SUB-Q HS 09/09/14 02/16/19 08/26/18 Flextouch (Nf)] Zolpidem [Ambien] 10 mg PO QHS 08/27/18 02/16/19 08/26/18 Insulin Lispro [Humalog 100 33 units SQ AC 02/16/19 02/16/19 Unknown UNITS/ML Kwikpen] Previous Rx's Medication Instructions Recorded Last Taken Type Gabapentin 800 mg PO TID #90 capsule 09/01/18 Unknown Rx AtorvaSTATin [Lipitor] 20 mg PO QHS tablet 02/18/19 Unknown Rx Furosemide [Lasix TAB] 20 mg PO QDAY tablet 02/18/19 Unknown Rx Ondansetron [Zofran ODT TAB] 4 mg PO Q8HR tab.rapdis 02/18/19 Unknown Rx Pantoprazole [Protonix TAB] 40 mg PO QDAY tablet 02/18/19 Unknown Rx Sertraline [Zoloft] 50 mg PO QDAY tablet 02/18/19 Unknown Rx Prochlorperazine [Compazine] 10 mg PO Q6HR #20 tablet 04/26/20 Unknown Rx Allergies Allergy/AdvReac Type Severity Reaction Status Date / Time acetaminophen Allergy Rash Verified 09/06/14 04:14 [From Lorcet (hydrocodone)] carbamazepine [From Tegretol] Allergy Rash Verified 09/06/14 04:14 cefaclor [From Ceclor] Allergy Rash Verified 09/06/14 04:14 cephalexin monohydrate Allergy Rash Verified 09/06/14 04:14 [From Keflex] chlorpheniramine maleate Allergy Rash Verified 09/06/14 04:14 [From Isoclor] codeine phosphate Allergy Rash Verified 04/26/20 11:54 [From Isoclor] guaifenesin [From Isoclor] Allergy Rash Verified 04/26/20 11:54 hydrocodone Allergy Rash Verified 04/26/20 11:54 hydrocodone bitartrate Allergy Rash Verified 04/26/20 11:54 [From Lorcet (hydrocodone)] indomethacin [From Indocin] Allergy Rash Verified 04/26/20 11:54 indomethacin sodium Allergy Rash Verified 04/26/20 11:54 [From Indocin] ofloxacin [From Floxin] Allergy Rash Verified 04/26/20 11:54 oxycodone HCl [From Percocet] Allergy Rash Verified 04/26/20 11:54 Penicillins Allergy Rash Verified 04/26/20 11:54 promethazine HCl Allergy Rash Verified 04/26/20 11:54 [From Phenergan] pseudoephedrine Allergy Rash Verified 09/06/14 04:14 pseudoephedrine HCl Allergy Rash Verified 09/06/14 04:14 [From Isoclor] Sulfa (Sulfonamide Allergy Rash Verified 09/06/14 04:14 Antibiotics) sulfamethoxazole Allergy Rash Verified 09/06/14 04:14 [From Bactrim] tetracycline Allergy Rash Verified 09/06/14 04:14 tetracycline HCl Allergy Rash Verified 09/06/14 04:14 [From Sumycin] trimethoprim [From Bactrim] Allergy Rash Verified 09/06/14 04:14 valacyclovir HCl Allergy Rash Verified 09/06/14 04:14 [From Valtrex] ED Review of Systems ROS: Stated complaint: CARDIAC ARREST Other details as noted in HPI Comment: Unobtainable due to pts medical conditions ED Past Medical Hx - Past Medical History Hx Hypertension: Yes Hx Diabetes: Yes Hx Renal Disease: Yes Hx Headaches / Migraines: Yes Additional medical history: blood clots - Surgical History Additional Surgical History: fibroid removed. blood clot removed on left leg - Social History Smoking Status: Never Smoker Substance Use Type: None (Denies illicit drug use) - Medications Home Medications: Home Medications Medication Instructions Recorded Confirmed Last Taken Type Insulin Detemir (Nf) [Levemir 38 units SUB-Q HS 09/09/14 02/16/19 08/26/18 History Flextouch (Nf)] Zolpidem [Ambien] 10 mg PO QHS 08/27/18 02/16/19 08/26/18 History Gabapentin 800 mg PO TID #90 capsule 09/01/18 02/16/19 Unknown Rx Insulin Lispro [Humalog 100 33 units SQ AC 02/16/19 02/16/19 Unknown History UNITS/ML Kwikpen] AtorvaSTATin [Lipitor] 20 mg PO QHS tablet 02/18/19 Unknown Rx Furosemide [Lasix TAB] 20 mg PO QDAY tablet 02/18/19 Unknown Rx Ondansetron [Zofran ODT TAB] 4 mg PO Q8HR tab.rapdis 02/18/19 Unknown Rx Pantoprazole [Protonix TAB] 40 mg PO QDAY tablet 02/18/19 Unknown Rx Sertraline [Zoloft] 50 mg PO QDAY tablet 02/18/19 Unknown Rx Prochlorperazine [Compazine] 10 mg PO Q6HR #20 tablet 04/26/20 Unknown Rx ED Physical Exam - General Limitations: Altered Mental Status, Physical Limitation General appearance: obtunded, obese - Head Head exam: Present: atraumatic, normocephalic - Eye Eye exam: Present: normal appearance, other (Pupils do not react to light) - ENT ENT exam: Present: mucous membranes moist, normal external ear exam, other (Endotracheal tube noted in the oropharynx) - Neck Neck exam: Present: normal inspection - Respiratory Respiratory exam: Present: other (The patient is not breathing). Absent: normal lung sounds bilaterally, respiratory distress - Cardiovascular Cardiovascular Exam: Present: other (Patient is pulseless). Absent: regular rate, normal rhythm, systolic murmur, diastolic murmur, rubs, gallop - GI/Abdominal GI/Abdominal exam: Present: soft. Absent: pulsatile mass - Extremities Exam Extremities exam: Present: normal inspection, other (No pulses in the upper or lower extremity) - Back Exam Back exam: Present: normal inspection - Neurological Exam Neurological exam: Present: altered (Intubated, GCS of 3T) - Psychiatric Psychiatric exam: Present: other (The patient is nonverbal) - Skin Skin exam: Present: warm, dry, intact, normal color. Absent: rash ED Medical Decision Making - Medical Decision Making Differential diagnosis, including but not limited to: Hyperkalemia, azotemia, uremia, acute coronary syndrome, pulmonary embolism, bleed, hypoglycemia, hyperglycemia, hyperammonemia Critical care attestation.: If time is entered above; I have spent that time in minutes in the direct care of this critically ill patient, excluding procedure time. ED Disposition Clinical Impression: Cardiac arrest Disposition: DC-20 Is pt being admited?: No Does the pt Need Aspirin: No Condition: Undetermined Referrals: PRIMARY CARE, [Primary Care Provider] - 3-5 Days
== END 2020-06-30 08:33 ==
LOC: ED 07:24
DX: I46.9 Cardiac arrest, cause unspecified (principal); I10 Essential (primary) hypertension; E11.9 Type 2 diabetes mellitus without complications; G43.909 Migraine, unspecified, not intractable, without status migrainosus; Z98.890 Other specified postprocedural states; Z79.4 Long term (current) use of insulin; Z79.899 Other long term (current) drug therapy; Z88.8 Allergy status to other drugs, medicaments and biological substances
CPT/HCPCS: 82962